=== PATIENT | male | born 1985 | race Caucasian/White ===

== ENCOUNTER 2017-05-26 13:12 | Inpatient (IN) | payer OTHER ==
[2017-05-26] VITALS (10 sets, daily range): BP systolic 96–112; BP diastolic 63–77; PULSE 61–76; TEMP 36.8; O2SAT 95–98; Ht 152.4 cm; Wt 55.4 kg
[~2017-05-26] VITALS: Ht 152.4 cm; Wt 55.4 kg
--- NOTE | 2017-05-26 13:31 | EMERGENCY ROOM VISIT NOTE ---
History Report prepared by David: Dipti Thurston Under the Supervision of: Dr. Iftikhar Jack M.D. First contact with patient: 13:20 Stated Complaint: BLEEDING History of Present Illness The patient is a 31 year old male who presents to the Emergency Room with complaints of persistent bleeding from a previous G tube site on his abdomen that began around 1120. Per the patient's mother, the patient has a history of transverse myelitis, acute. She notes that in 2012 the patient had an acute onset of hand numbness and feet numbness, noting that he then lost consciousness. The patient states that he does not have use of his arms or legs. Per the patient's home nurse, the patient has been bleeding from a fistula persistently, noting that he bled through at 2x2, and hand towel, and onto a pillow. Source of History: patient, parent (mother), other (home nurse) Onset: 1120 Position: abdomen Quality: other (bleeding from previous G tube site) Timing: other (persistent) Review of Systems See HPI for pertinent positives & negatives. A total of 10 systems reviewed and were otherwise negative. Past Medical & Surgical Medical Problems: (1) Acute transverse myelitis Family History No pertinent family history stated Social History Marital Status: single Housing Status: lives with family Occupation Status: disabled Current/Historical Medications Scheduled Baclofen (Lioresal), 10 MG PO QID Bisacodyl (Bisac-Evac), 10 MG RE DAILY Famotidine (Pepcid), 20 MG PO DAILY Gabapentin (Neurontin), 600 MG PO HS Metoclopramide (Reglan), 5 MG PO QID Montelukast Sodium (Montelukast Sodium), 1 TAB PO DAILY Multivitamin (Multivitamin), 1 TAB PO DAILY Senna (Senokot), 17.2 MG PO HS Tizanidine (Zanaflex), 2 MG PO BID Allergies Coded Allergies: No Known Allergies (Unverified , 05/26/17) Physical Exam Vital Signs Date Time Temp Pulse Resp B/P (MAP) Pulse Ox O2 Delivery O2 Flow Rate FiO2 05/26/17 15:02 75 20 114/71 98 Trach Collar 05/26/17 13:39 21 05/26/17 13:31 37.4 76 18 109/80 97 Trach Collar Physical Exam GENERAL: Patient awake, alert, oriented x 3. Patient follows commands. Patient is on a ventilator. Arms in braces, legs in braces, Jade catheter in place. SKIN: No erythema, pallor, cyanosis or rash HEENT: Normal head, pupils equal, reactive to light and accommodation, patient appears to have nystagmus. Oral cavity and posterior pharynx appear normal. Neck: Without adenopathy, no neck vein distention. LUNGS: Clear to auscultation. No wheezes, no rales, no rhonchi. HEART: No murmurs. No gallops. No rubs ABDOMEN: Small fistula in the left upper abdomen, where previous G-tube was. No masses, no rebound, no hepatomegaly or splenomegaly. EXTREMITIES: No signs of trauma. No pedal or pretibial edema. No calf or thigh tenderness. NEUROLOGIC: Cranial nerves II-XII within normal limits. No gross motor sensory function deficits. Medical Decision & Procedures Laboratory Results 05/26/17 13:40 Red Blood Count 4.43, Mean Corpuscular Volume 85.3, Mean Corpuscular Hemoglobin 29.6, Mean Corpuscular Hemoglobin Concent 34.7, Mean Platelet Volume 11.0, Neutrophils (%) (Auto) 58.3, Lymphocytes (%) (Auto) 30.1, Monocytes (%) (Auto) 8.4, Eosinophils (%) (Auto) 2.4, Basophils (%) (Auto) 0.5, Neutrophils # (Auto) 4.40, Lymphocytes # (Auto) 2.27, Monocytes # (Auto) 0.63, Eosinophils # (Auto) 0.18, Basophils # (Auto) 0.04 05/26/17 13:40 Test 05/26/17 13:40 White Blood Count 7.54 K/uL (4.8-10.8) Red Blood Count 4.43 M/uL (4.7-6.1) Hemoglobin 13.1 g/dL (14.0-18.0) Hematocrit 37.8 % (42-52) Mean Corpuscular Volume 85.3 fL (80-100) Mean Corpuscular Hemoglobin 29.6 pg (25-34) Mean Corpuscular Hemoglobin Concent 34.7 g/dl (32-36) Platelet Count 260 K/uL (130-400) Mean Platelet Volume 11.0 fL (7.4-10.4) Neutrophils (%) (Auto) 58.3 % Lymphocytes (%) (Auto) 30.1 % Monocytes (%) (Auto) 8.4 % Eosinophils (%) (Auto) 2.4 % Basophils (%) (Auto) 0.5 % Neutrophils # (Auto) 4.40 K/uL (1.4-6.5) Lymphocytes # (Auto) 2.27 K/uL (1.2-3.4) Monocytes # (Auto) 0.63 K/uL (0.11-0.59) Eosinophils # (Auto) 0.18 K/uL (0-0.5) Basophils # (Auto) 0.04 K/uL (0-0.2) RDW Standard Deviation 46.0 fL (36.4-46.3) RDW Coefficient of Variation 14.6 % (11.5-14.5) Immature Granulocyte % (Auto) 0.3 % Immature Granulocyte # (Auto) 0.02 K/uL (0.00-0.02) Anion Gap 9.0 mmol/L (3-11) Est Creatinine Clear Calc Drug Dose 78.2 ml/min Estimated GFR () 121.4 Estimated GFR (Non- 104.8 BUN/Creatinine Ratio 17.6 (10-20) Calcium Level 10.1 mg/dl (8.5-10.1) Laboratory results as stated above per my review. ED Course 1321: Past medical records reviewed. The patient was evaluated in room B5. A complete history and physical examination was performed. 1342: I discussed the patients case with a OSCAR from General Surgery. She states that she is going to get a hold of Dr. eCja 1500: The patient was signed out to Dr. Glasgow at change of shift. Medical Decision Nurses notes reviewed. Medical history sheet reviewed. Differential diagnosis includes but is not limited to: Bleeding from previous g tube site, anemia. Multiple labs were evaluated. Please see above. The patient is here with bleeding from an old G tube site. He may have an underlying peptic or gastric ulcer or bleeding from gastritis or neoplasm. H/H remains stable. The patient will require further evaluation in the hospital. GI will be consulted in addition to surgery. I spoke with surgery, medicine, the patient, mom and the patient's caregiver. Medication Reconcilliation Current Medication List: was personally reviewed by me Blood Pressure Screening Patient's blood pressure: Normal blood pressure Blood pressure disposition: Did not require urgent referral Consults Time Called: 1340 Consulting Physician: OSCAR from General Surgery Returned Call: 1342 I discussed the patients case with a OSCAR from General Surgery. She states that she is going to get a hold of Dr. Ceja. Additional Consults: Time Called: 15:00 Consulted Physician: Dr. Ceja Returned Call: 15:15 Additional Comments: Suggested that I get the patient admitted to medicine and have them consult GI for endoscopy. He will see the patient in the hospital. Time Called: 15:17 Consulted Physician: Dr. Aviles Returned Call: 15:17 Additional Comments: Will furhter evaluate for admission. Will consult GI and surgery. Impression Primary Impression: Bleeding from gastrostomy tube site Scribe Attestation The scribe's documentation has been prepared under my direction and personally reviewed by me in its entirety. I confirm that the note above accurately reflects all work, treatment, procedures, and medical decision making performed by me. Departure Information Dispostion Still a Patient Referrals Abigail Hernández (PCP)
[2017-05-26] MEDS ORDERED: BACL10TA PO (14:01)
[2017-05-26] MEDS ORDERED: MONT1TAB5 PO (14:01)
[2017-05-26] MEDS ORDERED: BISA10SU7 RE (14:01)
[2017-05-26] MEDS ORDERED: GABA-113 PO (14:01)
[2017-05-26] MEDS ORDERED: FAMO20TA11 PO (14:01)
[2017-05-26] MEDS ORDERED: MULT-506 PO (14:01)
[2017-05-26] MEDS ORDERED: METO-157 PO (14:01)
[2017-05-26] MEDS ORDERED: TIZA2CAP PO (14:01)
[2017-05-26] MEDS ORDERED: SENN-61 PO (14:01)
[2017-05-26 14:12] LABS: BASO % 0.5 %; BASO ABS # 0.04 K/uL (0-0.2); COMPLETE YES; EOS % 2.4 %; HEMATOCRIT 37.8 % (42-52); IG% 0.3 %; LYMPH % 30.1 %; LYMPH ABS # 2.27 K/uL (1.2-3.4); MEAN CELL VOLUME 85.3 fL (80-100); MEAN CORPUSCULAR HEMOGLOBIN 29.6 pg (25-34); MEAN CORPUSCULAR HGB CONC 34.7 g/dl (32-36); MONO % 8.4 %; NEUT % 58.3 %; PLATELET COUNT 260 K/uL (130-400); RED BLOOD COUNT 4.43 M/uL (4.7-6.1); WHITE BLOOD COUNT 7.54 K/uL (4.8-10.8)
[2017-05-26 14:29] LABS: BUN/CREATININE RATIO 17.6 (10-20); CALCIUM 10.1 mg/dl (8.5-10.1); CREATININE 0.95 mg/dl (0.60-1.40); POTASSIUM 3.6 mmol/L (3.5-5.1)
[2017-05-26] MEDS ORDERED: MAGNESIUM HYDROXIDE SUSP 30 ML UDC PO PRN (16:30)
[2017-05-26] MEDS ORDERED: ACETAMINOPHEN 325 MG TAB PO PRN (16:30)
[2017-05-26] MEDS ORDERED: POLYETHYLENE (MIRALAX) 17 GM PACK PO PRN (16:30)
[2017-05-26] MEDS ORDERED: ONDANSETRON INJ 2 MG/ML 2 ML VIAL IV PRN (16:30)
[2017-05-26] MEDS ORDERED: GABA1CAP4 PO (16:34)
--- NOTE | 2017-05-26 16:58 | History and Physical ---
History & Physical Date & Time of Service: May 26, 2017 at 15:59 Chief Complaint: Bleeding Primary Care Physician: Abigail Hernández History of Present Illness Source: patient This is 31 yo M with PMHs of quadraplegia, neurogenic bladder with chronic indwelling ovalles, legally blind, nonhealing gastrocutaneous fistula d/t gastic tube, transverse myelitis, and polyneuritis who presents with bleeding surrounding previous gastric tube insertion site. The patient is present with his mother and home nurse. The patient initially had a G-tube placed for acute transverse myelitis in Jun [address] [facility], he was admitted under their care for about 1 month at that time, prior to the procedure. He also had a tracheostomy placed in Jun 2013. Approximately 1 year later he was supposed to have the Gtube out, and replaced by a zuhair tube. This tube then accidentally fell out approximately 1 month after the exchange at home, and it was never replaced. The wound there has never completely healed over. There have been many times where the insertion site has stretched, but he was told this was due to his oral intake. The patient eats three meals daily without difficulty and denies abdominal complaints. His bowels move regularly. His chronic indwelling catheter was last changed on April 08 2017, and he typically hates to have it changed. Here in the ED the pt was found to have stable vital signs, stable hemoglobin, no leukocytosis. 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 Tracheostomy Surgical Hx Previous gtube placement and removal Tracheostomy nasal septoplasty Family History Noncontributory Social History Smoking Status: Never Smoker Smokeless Tobacco Use: No Alcohol Use: none Drug Use: none Marital Status: single Housing status: lives with family Occupational Status: disabled Immunizations History of Influenza Vaccine: Unknown History of Tetanus Vaccine?: Unknown History of Pneumococcal: Unknown History of Hepatitis B Vaccine: Unknown Multi-Drug Resistant Organisms History of MDRO: No Allergies Coded Allergies: No Known Allergies (Unverified , 05/26/17) Home Medications Scheduled Baclofen (Lioresal), 10 MG PO QID Bisacodyl (Bisac-Evac), 10 MG RE DAILY Famotidine (Pepcid), 20 MG PO DAILY Gabapentin (Neurontin), 600 MG PO HS Gabapentin (Gabapentin), 1 CAP PO QDL Metoclopramide (Reglan), 5 MG PO QID Montelukast Sodium (Montelukast Sodium), 1 TAB PO HS Multivitamin (Multivitamin), 1 TAB PO DAILY Senna (Senokot), 17.2 MG PO HS Tizanidine (Zanaflex), 2 MG PO BID Review of Systems Constitutional: No fever, No chills, No sweats Eyes: + problem reported (legally blind, wears hard contact in R eye only) ENT: No hearing loss, No nasal symptoms, No trouble swallowing Respiratory: No cough, No sputum, No wheezing, No shortness of breath, No dyspnea on exertion, No problem reported (trache dependent) Cardiovascular: No chest pain, No palpitations Abdomen: + problem reported (see HPI) Musculoskeletal: + problem reported (muscle spasms) Genitourinary - Male: + problem reported (Chronic indwelling ovalles), No hematuria Neurologic: + problem reported (Quadraplegia) Endocrine: No fatigue Integumentary: No rash, No itch Physical Exam Vital Signs Date Time Temp Pulse Resp B/P (MAP) Pulse Ox O2 Delivery O2 Flow Rate FiO2 05/26/17 15:02 75 20 114/71 98 Trach Collar 05/26/17 13:39 21 05/26/17 13:31 37.4 76 18 109/80 97 Trach Collar General Appearance: + pertinent finding (Quadraplegia, + contractures of bilateral upper extremities, muscle wasting) Head: normocephalic, atraumatic Eyes: PERRL, + pertinent finding (+ cataracts, + nystagmus, + difficulty tracting movements) ENT: hearing grossly normal, pharynx normal, + pertinent finding (MMM) Neck: supple, + pertinent finding (Tacheostomy intact) Respiratory/Chest: lungs clear, no respiratory distress, no accessory muscle use Cardiovascular: regular rate, rhythm, no murmur, normal peripheral pulses Abdomen/GI: normal bowel sounds, non tender, soft, + pertinent finding (RUQ abdominal wound with dried blood surrounding it. Pinpoint sized hole open to underlying tissue, draining serosanginous fluid) Extremities/Musculoskelatal: no calf tenderness, no pedal edema, + pertinent finding (Leg spasm witnessed, involves BLE with tremors.) Neurologic/Psych: alert, normal mood/affect, oriented x 3 Skin: normal color, warm/dry Diagnostics Laboratory Results Results Past 24 Hours Test 05/26/17 13:40 Range/Units White Blood Count 7.54 4.8-10.8 K/uL Red Blood Count 4.43 4.7-6.1 M/uL Hemoglobin 13.1 14.0-18.0 g/dL Hematocrit 37.8 42-52 % Mean Corpuscular Volume 85.3 80-100 fL Mean Corpuscular Hemoglobin 29.6 25-34 pg Mean Corpuscular Hemoglobin Concent 34.7 32-36 g/dl Platelet Count 260 130-400 K/uL Mean Platelet Volume 11.0 7.4-10.4 fL Neutrophils (%) (Auto) 58.3 % Lymphocytes (%) (Auto) 30.1 % Monocytes (%) (Auto) 8.4 % Eosinophils (%) (Auto) 2.4 % Basophils (%) (Auto) 0.5 % Neutrophils # (Auto) 4.40 1.4-6.5 K/uL Lymphocytes # (Auto) 2.27 1.2-3.4 K/uL Monocytes # (Auto) 0.63 0.11-0.59 K/uL Eosinophils # (Auto) 0.18 0-0.5 K/uL Basophils # (Auto) 0.04 0-0.2 K/uL RDW Standard Deviation 46.0 36.4-46.3 fL RDW Coefficient of Variation 14.6 11.5-14.5 % Immature Granulocyte % (Auto) 0.3 % Immature Granulocyte # (Auto) 0.02 0.00-0.02 K/uL Sodium Level 139 136-145 mmol/L Potassium Level 3.6 3.5-5.1 mmol/L Chloride Level 111 98-107 mmol/L Carbon Dioxide Level 19 21-32 mmol/L Anion Gap 9.0 3-11 mmol/L Blood Urea Nitrogen 17 7-18 mg/dl Creatinine 0.95 0.60-1.40 mg/dl Est Creatinine Clear Calc Drug Dose 78.2 ml/min Estimated GFR () 121.4 Estimated GFR (Non- 104.8 BUN/Creatinine Ratio 17.6 10-20 Random Glucose 87 70-99 mg/dl Calcium Level 10.1 8.5-10.1 mg/dl EKG Vent. rate 69 BPM OK interval 114 ms QRS duration 88 ms QT/QTc 392/420 ms P-R-T axes -11 49 10 Poor data quality, interpretation may be adversely affected Normal sinus rhythm T wave abnormality, consider anterolateral ischemia Abnormal ECG No previous ECGs available Impression Assessment and Plan This is 31 yo M with PMHs of quadraplegia, neurogenic bladder with chronic indwelling ovalles, legally blind, nonhealing gastrocutaneous fistula d/t gastic tube, transverse myelitis, and polyneuritis who presents with bleeding surrounding previous gastric tube insertion site. Acute transverse myelitis - Admit to med/surg - Consult general surgery for questionable tracting/fistula and needs for surgical intervention - I have kept the pt NPO except meds for now. Pt had previously seen Dr. Ceja, and had scheduled outpatient surgery 06/09/17. - Consult GI for possible upper endoscopy - previously followed with [facility] so consulted Dr. Solomon - Hgb currently stable, trend with am labs Quadriplegia - Continue on home medications including baclofen 10 mg QID, gabapentin 300 mg at noon and 600 mg QHS - Low air loss mattress ordered - Turn and repo Q2H Tracheostomy dependent - Continue trach care per nursing - Will ask wound to see the patient Neurogenic Bladder - Has chronic indwelling ovalles placed, last changed April 08, 2017 - if pt undergoes procedure with sedation the ovalles catheter needs to be changed then. Pt does not like ovalles changed while awake due to severe discomfort. Anxiety Panic attacks - Occur with change of tracheostomy - uses ativan 0.5 mg 30 minutes prior to change DVT ppx: Teds, heparin subQ - can certainly hold if surgical intervention CODE STATUS: FULL CODE, mother is POA Disposition: From home, has 24/ nursing care in home. PA Physician Supervision Note: I interviewed and examined the patient. Discussed with Martha ESPINOZA and agree with findings and plan as documented in the note. Any exceptions or clarifications are listed here: None This patient was admitted with bleeding from his previous G-tube site not acute transverse myelitis. This morning the patient's in his usual state he's on a chronic home ventilator for his quadriplegia. His mother is at the bedside. Vital signs were stable next I inspected this site with when my PA is crusted with no acute bleeding. Patient is proceeding to upper endoscopy to evaluate the stomach for a fistulous tract to the skin. If he stable after this procedure he potentially could return home with outpatient surgical follow-up Documented By: Son Judge Level of Care Med/Surg Advanced Directives Existing Advance Directive: Yes Existing Living Will: Yes Existing Power of Lab Engineer: Yes Existing Health Care Proxy: Yes Resuscitation Status FULL RESUSCITATION VTE Prophylaxis Risk Level: Low Given or contraindicated: Unfractionated heparin SQ, T.EMaurisio Garcia, SCD's Social Service Consult Receiving Home Health
[2017-05-26] MEDS: GABAPENTIN 300 MG CAP PO SCH (17:26)
[2017-05-26] MEDS: METOCLOPRAMIDE HCL 5 MG TAB PO SCH ×2 (17:26→21:18)
[2017-05-26] MEDS: BACLOFEN 10 MG TAB PO SCH ×2 (17:26→21:19)
[2017-05-26 17:57] LABS: PARTIAL THROMBOPLASTIN RATIO 1.3; PROTHROMBIN TIME (PATIENT) 10.7 SECONDS (9.0-12.0)
[2017-05-26] MEDS ORDERED: MONTELUKAST SOD 10 MG TAB PO SCH (21:00)
[2017-05-26] MEDS ORDERED: GABAPENTIN 600 MG TAB PO SCH (21:00)
[2017-05-26] MEDS ORDERED: SENNA 8.6 MG TAB PO SCH (21:00)
[2017-05-26] MEDS ORDERED: BISACODYL 10 MG SUPP PR SCH (21:00)
[2017-05-26] MEDS: HEPARIN SOD 5000 UNIT/0.5 ML CARP SQ SCH (21:20)
[2017-05-27] VITALS (17 sets, daily range): BP systolic 86–117; BP diastolic 54–82; PULSE 60–94; TEMP 36.4–37.3; O2SAT 88–99
[2017-05-27] MEDS ORDERED: NURSING VERBAL MED ORDER ONE (07:45)
[2017-05-27 08:08] LABS: HEMATOCRIT 40.1 % (42-52); MEAN CELL VOLUME 85.7 fL (80-100); MEAN CORPUSCULAR HEMOGLOBIN 29.7 pg (25-34); MEAN PLATELET VOLUME 10.7 fL (7.4-10.4); PLATELET COUNT 260 K/uL (130-400); RED BLOOD COUNT 4.68 M/uL (4.7-6.1); WHITE BLOOD COUNT 6.37 K/uL (4.8-10.8)
[2017-05-27 08:13] LABS: MEAN CORPUSCULAR HGB CONC 34.7 g/dl (32-36)
--- NOTE | 2017-05-27 08:15 | Surgery Consultation ---
Consultation Date of Consultation: May 27, 2017. Attending Physician: Son Judge M.D. History of Present Illness pt known to me/schedule for sugery to staple off his gastrocutaneous fistula in 2 weeks. 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 he has a non-healing fistula and for the first time ever had some red blood from the fistula. no other complaints. feeling well otherwise. Past Medical/Surgical History Medical Problems: (1) Bleeding from gastrostomy tube site Status: Acute Social History Smoking Status: Never Smoker Smokeless Tobacco Use: No Alcohol Use: none Drug Use: none Marital Status: single Housing Status: lives with family Occupation Status: disabled Allergies Coded Allergies: No Known Allergies (Unverified , 05/26/17) Home Medications Scheduled Baclofen (Lioresal), 10 MG PO QID Bisacodyl (Bisac-Evac), 10 MG RE DAILY Famotidine (Pepcid), 20 MG PO DAILY Gabapentin (Neurontin), 600 MG PO HS Gabapentin (Gabapentin), 1 CAP PO QDL Metoclopramide (Reglan), 5 MG PO QID Montelukast Sodium (Montelukast Sodium), 1 TAB PO HS Multivitamin (Multivitamin), 1 TAB PO DAILY Senna (Senokot), 17.2 MG PO HS Tizanidine (Zanaflex), 2 MG PO BID Current Inpatient Medications Current Inpatient Medications Medications (Trade) Dose Ordered Sig/Jameson Route Start Time Stop Time Status Last Admin Dose Admin Acetaminophen (Tylenol Tab) 650 mg Q4H PRN PO 05/26/17 16:30 06/25/17 16:29 Magnesium Hydroxide (Milk Of Magnesia Susp) 30 ml Q6H PRN PO 05/26/17 16:30 06/25/17 16:29 Polyethylene (Miralax Powder Packet) 17 gm DAILY PRN PO 05/26/17 16:30 06/25/17 16:29 Ondansetron HCl (Zofran Inj) 4 mg Q6H PRN IV 05/26/17 16:30 06/25/17 16:29 Heparin Sodium (Porcine) (Heparin Sq 5000 Unit/0.5ml) 5,000 unit Q12H SQ 05/26/17 21:00 06/25/17 20:59 05/26/17 21:20 5,000 UNIT Baclofen (Lioresal Tab) 10 mg QID PO 05/26/17 17:00 06/25/17 16:59 05/26/17 21:19 10 MG Bisacodyl (Dulcolax Supp) 10 mg HS ND 05/26/17 21:00 06/25/17 20:59 05/26/17 21:19 10 MG Famotidine (Pepcid Tab) 20 mg DAILY PO 05/27/17 09:00 06/26/17 08:59 Gabapentin (Neurontin Cap) 300 mg QDL PO 05/26/17 16:30 06/25/17 16:29 05/26/17 17:26 300 MG Gabapentin (Neurontin Tab) 600 mg HS PO 05/26/17 21:00 06/25/17 20:59 05/26/17 21:19 600 MG Metoclopramide HCl (Reglan Tab) 5 mg QID PO 05/26/17 17:00 06/25/17 16:59 05/26/17 21:18 5 MG Montelukast Sodium (Singulair Tab) 10 mg HS PO 05/26/17 21:00 06/25/17 20:59 05/26/17 21:18 10 MG Multivitamins (Multivitamin Tab) 1 tab DAILY PO 05/27/17 09:00 06/26/17 08:59 Senna (Senokot Tab) 17.2 mg HS PO 05/26/17 21:00 06/25/17 20:59 05/26/17 21:18 17.2 MG Tizanidine HCl (Zanaflex Tab) 2 mg BID PO 05/26/17 21:00 06/25/17 20:59 05/26/17 21:19 2 MG Sodium Chloride 1,000 ml @ 125 mls/hr Q8H IV 05/27/17 07:45 06/26/17 07:44 Review of Systems Abdomen: + GI bleeding Physical Exam Date Time Temp Pulse Resp B/P (MAP) Pulse Ox O2 Delivery O2 Flow Rate FiO2 05/27/17 07:32 21 05/27/17 04:31 66 18 93/54 (67) 97 Mechanical Ventilator 05/27/17 04:07 73 18 105/73 (84) 95 Mechanical Ventilator 05/27/17 04:01 36.4 79 18 105/73 (84) 96 Mechanical Ventilator 05/27/17 04:00 96 Mechanical Ventilator 05/27/17 03:31 72 17 99/64 (76) 94 Mechanical Ventilator 05/27/17 03:01 69 16 102/72 (82) 97 Mechanical Ventilator 05/27/17 02:31 69 16 117/78 (91) 98 Mechanical Ventilator 05/27/17 02:01 60 16 88/63 (71) 95 Mechanical Ventilator 05/27/17 01:31 60 16 89/61 (70) 97 Mechanical Ventilator 05/27/17 01:01 61 16 86/61 (69) 97 Mechanical Ventilator 05/27/17 00:31 60 16 95/60 (72) 97 Mechanical Ventilator 05/27/17 00:02 69 16 92/62 (72) 95 Mechanical Ventilator 05/27/17 00:01 36.7 63 21 87/60 (69) 88 Mechanical Ventilator 05/27/17 00:01 96 Mechanical Ventilator 05/26/17 23:31 61 21 96/63 (74) 97 Mechanical Ventilator 05/26/17 23:01 70 16 102/75 (84) 97 Mechanical Ventilator 05/26/17 22:31 67 16 103/73 (83) 98 Mechanical Ventilator 05/26/17 22:07 21 05/26/17 22:01 69 22 112/77 (89) 97 Mechanical Ventilator 05/26/17 21:31 75 24 103/70 (81) 97 Mechanical Ventilator 05/26/17 21:01 76 24 112/76 (88) 96 Mechanical Ventilator 05/26/17 21:00 96 Mechanical Ventilator 05/26/17 20:49 36.8 74 19 106/70 (82) 96 Mechanical Ventilator 05/26/17 18:56 36.8 76 18 103/68 (80) 95 Room Air 05/26/17 17:42 75 16 103/69 96 05/26/17 17:20 97 Mechanical Ventilator 8.0 05/26/17 17:08 75 16 103/69 96 Trach Collar 05/26/17 15:02 75 20 114/71 98 Trach Collar 05/26/17 13:39 21 05/26/17 13:31 37.4 76 18 109/80 97 Trach Collar General Appearance: no apparent distress Eyes: + abnormal sclerae exam ENT: hearing grossly normal Abdomen/GI: non tender, soft, + pertinent finding (no blood currently from fistula tract) Neurologic/Psych: alert, oriented x 3 Laboratory Results Last 24 Hours Test 05/26/17 13:40 05/27/17 07:43 White Blood Count 7.54 K/uL 6.37 K/uL Red Blood Count 4.43 M/uL 4.68 M/uL Hemoglobin 13.1 g/dL 13.9 g/dL Hematocrit 37.8 % 40.1 % Mean Corpuscular Volume 85.3 fL 85.7 fL Mean Corpuscular Hemoglobin 29.6 pg 29.7 pg Mean Corpuscular Hemoglobin Concent 34.7 g/dl Platelet Count 260 K/uL 260 K/uL Mean Platelet Volume 11.0 fL 10.7 fL Neutrophils (%) (Auto) 58.3 % Lymphocytes (%) (Auto) 30.1 % Monocytes (%) (Auto) 8.4 % Eosinophils (%) (Auto) 2.4 % Basophils (%) (Auto) 0.5 % Neutrophils # (Auto) 4.40 K/uL Lymphocytes # (Auto) 2.27 K/uL Monocytes # (Auto) 0.63 K/uL Eosinophils # (Auto) 0.18 K/uL Basophils # (Auto) 0.04 K/uL RDW Standard Deviation 46.0 fL 45.5 fL RDW Coefficient of Variation 14.6 % 14.6 % Immature Granulocyte % (Auto) 0.3 % Immature Granulocyte # (Auto) 0.02 K/uL Prothrombin Time 10.7 SECONDS Prothromb Time International Ratio 1.0 Activated Partial Thromboplast Time 33.2 SECONDS Partial Thromboplastin Ratio 1.3 Sodium Level 139 mmol/L Potassium Level 3.6 mmol/L Chloride Level 111 mmol/L Carbon Dioxide Level 19 mmol/L Anion Gap 9.0 mmol/L Blood Urea Nitrogen 17 mg/dl Creatinine 0.95 mg/dl Est Creatinine Clear Calc Drug Dose 78.2 ml/min Estimated GFR () 121.4 Estimated GFR (Non- 104.8 BUN/Creatinine Ratio 17.6 Random Glucose 87 mg/dl Calcium Level 10.1 mg/dl Assessment & Plan pt known to me scheduled for takedown of gastrocutaneous fistula egd prior to surgery would be a good idea to evaluate source of bleeding no bleeding overnight. H/H this AM pending pt NPO . will start IVF's. still planning surgery pending results of EGD Dr. Mckeon covering for weekend.
--- NOTE | 2017-05-27 08:18 | Clinical Documentation Query ---
JUAN C Edward : CLINICAL DOCUMENTATION QUERY Documentation includes "acute transverse myelitis". Per documentation, it appears the acute phase of the disease occurred in June 2013, as evidenced by gastrostomy and tracheostomy at this time. Subsequent to this, patient intake is by the oral route. Resultant quadriplegia, urinary retention, blindness remain. Please clarify the acuity of this condition as clinically appropriate. In your clinical opinion is this patient being managed for: ( ) Acute transverse myelitis ( ) Sequelae of transverse myelitis, not acute ( ) Not Agree ( ) Other explanation of clinical findings (Please Explain) ( ) Unable to determine (Please Define) ( ) Need to Discuss The medical record reflects the following clinical findings, treatment, and risk factors. Please clarify and document your clinical opinion in the progress notes and discharge summary. Terms such as "probable", "suspected", "likely", "questionable", "possible", or "still to be ruled out" are acceptable. IF IN AGREEMENT, YOU MUST DOCUMENT ABOVE DIAGNOSTIC STATEMENT IN DAILY PROGRESS NOTES AND DISCHARGE SUMMARY. This document is not part of the patient's record. Thank You, Darius Etienne, ILENE [phone]
[2017-05-27] MEDS: BACLOFEN 10 MG TAB PO SCH ×3 (08:28→16:09)
[2017-05-27] MEDS: SODIUM CHLORIDE 0.9% 1000ML 1,000 ML IV SCH ×2 (08:28→16:08)
[2017-05-27] MEDS: METOCLOPRAMIDE HCL 5 MG TAB PO SCH ×3 (08:30→16:09)
[2017-05-27] MEDS: HEPARIN SOD 5000 UNIT/0.5 ML CARP SQ SCH (08:36)
[2017-05-27] MEDS ORDERED: MULTIVITAMIN TAB PO SCH (09:00)
[2017-05-27] MEDS ORDERED: FAMOTIDINE 20 MG TAB PO SCH (09:00)
--- NOTE | 2017-05-27 11:02 | GASTROINTESTINAL CONSULTATION ---
DATE OF CONSULTATION: 05/27/2017 DATE OF CONSULTATION: 05/27/2017 REQUESTING PHYSICIAN: Dr. Son Judge. INDICATIONS: Gastrointestinal bleeding through gastrocutaneous fistula. HISTORY OF PRESENT ILLNESS: Mr. Acevedo is a 31-year-old white male who presented yesterday for bleeding through established and known gastrocutaneous fistula at the site of prior peg/surgically placed gastrostomy tube. The patient has a history of quadriplegia, neurogenic bladder with chronic indwelling Jade and is blind and underwent a G-tube placement initially endoscopically and subsequently on replacement by surgical approach in 2012 at the time of diagnosis of acute transverse myelitis. This was at [facility]. The patient has a tracheostomy since June 2013. The patient had a subsequent replacement by a MARIO-PINON tube that would facilitate subsequent changes. Actually, the patient is able to tolerate oral intake and has been eating since 2013 according to the patient and his mother. He actually had been seen by Dr. Ceja recently for which plans in mid-May to close this fistula tract were made. However, yesterday the patient noted bleeding coming from the tract that soaked through several gauze pads and hand towel. The patient denies any melena or bright red blood per rectum and did not have coffee-ground emesis, hematemesis or any sensation of nausea. The patient presented to the Emergency Room due to this presentation. PAST MEDICAL HISTORY: Acute transverse myelitis, neurogenic bladder, visual impairment, gastrocutaneous fistula, polyneuritis, history of tracheostomy. The patient had an addition surgical history of nasal septoplasty. SOCIAL HISTORY: The patient denies tobacco or alcohol usage, is single, lives with his family. ALLERGIES: He has no known drug allergies. HOME MEDICATIONS: Include Baclofen, Dulcolax, famotidine 20 mg daily, gabapentin, metoclopramide, Singulair, multivitamins, senna and Zanaflex. FAMILY HISTORY: Noncontributory. SOCIAL HISTORY: As described above. REVIEW OF SYSTEMS: Otherwise noncontributory based on 13-point exam except for mentioned above. There is no reports of bright red blood per rectum, melena, diarrhea or constipation and is managed with bowel regimen because of his quadriplegia. PHYSICAL EXAMINATION: VITAL SIGNS: On admission, the patient was afebrile. Vital signs were stable, 109/80, heart rate 76, respirations 18. GENERAL: The patient is resting comfortably in bed, has a tracheostomy in and on ventilatory support. The patient in the ICU setting for telemetry purposes. The patient is verbal, awake, alert and oriented x3. HEAD, EYES, EARS, NOSE, AND THROAT: Sclerae are anicteric, conjunctiva moist. Oral mucosa is slightly parched. HEART: Normal S1, S2. LUNGS: Clear to auscultation without rales, rhonchi or wheezes. There are positive bowel sounds. EXTREMITIES: Show some contractures. The patient is unable to perform range of motion. Inspection of the abdominal wall in the left mid abdomen shows the prior PEG tube site for which is currently nonbleeding without significant ulceration or maceration. There is no blood currently emanating from the fistula track or orifice. RECTAL EXAMINATION: Deferred. LABORATORY STUDIES: Today and on admission reveal a stable white count of 7.5, hemoglobin 13.1 and repeat 13.9 today, platelets are 260,000. Serum chemistry, BUN and creatinine are 17 and 0.9. Potassium 3.6. Coagulation panel INR 1.0. There are no imaging. 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 The patient is able to fully tolerate nutrition support orally. Plans to close this surgically are in progress as an outpatient for 06/09/2017. I suspect that the bleeding is coming from the tract itself and emanating to the surface and does not likely reflect a gastrointestinal bleed as there is no descriptions of hematemesis, coffee-ground emesis or melena. Hemoglobin also stable and BUN and creatinine ratio are normal. I believe it is reasonable to pursue an upper endoscopy to exclude any other mucosal defects in the stomach prior to anticipated laparoscopic closure and repair of this tract. Although endoscopic approaches have have been attempted the chronicity of this track may limit durable response by endo clipping or other techniques. Will arrange for upper endoscopy this afternoon, patient is n.p.o. and this should be continued until the procedure is performed. Dr. Harry will be performing this procedure later this afternoon. Thank you for allowing me to participate in this patient's care.
--- NOTE | 2017-05-27 11:31 | Hospitalist Progress Note ---
Hospitalist Progress Note Date of Service May 27, 2017. Subjective Pt evaluation today including: conversation w/ patient, conversation w/ family , physical exam, chart review, lab review, review of studies Pain: None PO Intake: Good Voiding: ovalles catheter in place The patient was seen and examined this morning. Pt reports doing well today. He slept overnight well. There has been no more drainage for g-tube site, no bleeding, no pain surrounding the area. He is NPO. Gastroenterology plans to do an EGD on the patient today to assess for potential source of bleeding. No surgical intervention required immediately as Dr. Ceja was in to see him, and plans to keep outpatient surgery as scheduled. The patient has no other acute complaints. Constitutional: No fever, No chills, No sweats Respiratory: No cough, No shortness of breath, No dyspnea on exertion Cardiovascular: No chest pain, No palpitations Abdomen: No pain, No nausea, No vomiting, No diarrhea, No constipation Musculoskeletal: No joint pain, No swelling Neurologic: No weakness, No numbness/tingling Endo: No fatigue Skin: No rash, No itch Objective Vital Signs Date Time Temp Pulse Resp B/P (MAP) Pulse Ox O2 Delivery O2 Flow Rate FiO2 05/27/17 10:00 36.6 75 16 88/55 (66) 94 Mechanical Ventilator 05/27/17 08:00 36.6 69 16 100/71 (81) 96 Mechanical Ventilator 05/27/17 08:00 Room Air Mechanical Ventilator 05/27/17 07:32 21 05/27/17 04:31 66 18 93/54 (67) 97 Mechanical Ventilator 05/27/17 04:07 73 18 105/73 (84) 95 Mechanical Ventilator 05/27/17 04:01 36.4 79 18 105/73 (84) 96 Mechanical Ventilator 05/27/17 04:00 96 Mechanical Ventilator 05/27/17 03:31 72 17 99/64 (76) 94 Mechanical Ventilator 05/27/17 03:01 69 16 102/72 (82) 97 Mechanical Ventilator 05/27/17 02:31 69 16 117/78 (91) 98 Mechanical Ventilator 05/27/17 02:01 60 16 88/63 (71) 95 Mechanical Ventilator 05/27/17 01:31 60 16 89/61 (70) 97 Mechanical Ventilator 05/27/17 01:01 61 16 86/61 (69) 97 Mechanical Ventilator 05/27/17 00:31 60 16 95/60 (72) 97 Mechanical Ventilator 05/27/17 00:02 69 16 92/62 (72) 95 Mechanical Ventilator 05/27/17 00:01 36.7 63 21 87/60 (69) 88 Mechanical Ventilator 05/27/17 00:01 96 Mechanical Ventilator 05/26/17 23:31 61 21 96/63 (74) 97 Mechanical Ventilator 05/26/17 23:01 70 16 102/75 (84) 97 Mechanical Ventilator 05/26/17 22:31 67 16 103/73 (83) 98 Mechanical Ventilator 05/26/17 22:07 21 05/26/17 22:01 69 22 112/77 (89) 97 Mechanical Ventilator 05/26/17 21:31 75 24 103/70 (81) 97 Mechanical Ventilator 05/26/17 21:01 76 24 112/76 (88) 96 Mechanical Ventilator 05/26/17 21:00 96 Mechanical Ventilator 05/26/17 20:49 36.8 74 19 106/70 (82) 96 Mechanical Ventilator 05/26/17 18:56 36.8 76 18 103/68 (80) 95 Room Air 05/26/17 17:42 75 16 103/69 96 05/26/17 17:20 97 Mechanical Ventilator 8.0 05/26/17 17:08 75 16 103/69 96 Trach Collar 05/26/17 15:02 75 20 114/71 98 Trach Collar 05/26/17 13:39 21 05/26/17 13:31 37.4 76 18 109/80 97 Trach Collar Physical Exam Notes: General Appearance: + pertinent finding (Quadraplegia, + contractures of bilateral upper extremities, muscle wasting) Head: normocephalic, atraumatic Eyes: PERRL, + pertinent finding (+ cataracts, + nystagmus, + difficulty tracting movements) ENT: hearing grossly normal, pharynx normal, + pertinent finding (MMM) Neck: supple, + pertinent finding (Tacheostomy intact) Respiratory/Chest: lungs clear, no respiratory distress, no accessory muscle use Cardiovascular: regular rate, rhythm, no murmur, normal peripheral pulses Abdomen/GI: normal bowel sounds, non tender, soft, + pertinent finding (RUQ abdominal wound with dried blood surrounding it. Pinpoint sized hole open to underlying tissue, minimal dried drainage on bandage but no drainage from wound currently) Extremities/Musculoskelatal: no calf tenderness, no pedal edema Neurologic/Psych: alert, normal mood/affect, oriented x 3 Skin: normal color, warm/dry Laboratory Results Last 24 Hours Test 05/26/17 13:40 05/27/17 07:43 White Blood Count 7.54 K/uL 6.37 K/uL Red Blood Count 4.43 M/uL 4.68 M/uL Hemoglobin 13.1 g/dL 13.9 g/dL Hematocrit 37.8 % 40.1 % Mean Corpuscular Volume 85.3 fL 85.7 fL Mean Corpuscular Hemoglobin 29.6 pg 29.7 pg Mean Corpuscular Hemoglobin Concent 34.7 g/dl 34.7 g/dl Platelet Count 260 K/uL 260 K/uL Mean Platelet Volume 11.0 fL 10.7 fL Neutrophils (%) (Auto) 58.3 % Lymphocytes (%) (Auto) 30.1 % Monocytes (%) (Auto) 8.4 % Eosinophils (%) (Auto) 2.4 % Basophils (%) (Auto) 0.5 % Neutrophils # (Auto) 4.40 K/uL Lymphocytes # (Auto) 2.27 K/uL Monocytes # (Auto) 0.63 K/uL Eosinophils # (Auto) 0.18 K/uL Basophils # (Auto) 0.04 K/uL RDW Standard Deviation 46.0 fL 45.5 fL RDW Coefficient of Variation 14.6 % 14.6 % Immature Granulocyte % (Auto) 0.3 % Immature Granulocyte # (Auto) 0.02 K/uL Prothrombin Time 10.7 SECONDS Prothromb Time International Ratio 1.0 Activated Partial Thromboplast Time 33.2 SECONDS Partial Thromboplastin Ratio 1.3 Sodium Level 139 mmol/L Potassium Level 3.6 mmol/L Chloride Level 111 mmol/L Carbon Dioxide Level 19 mmol/L Anion Gap 9.0 mmol/L Blood Urea Nitrogen 17 mg/dl Creatinine 0.95 mg/dl Est Creatinine Clear Calc Drug Dose 78.2 ml/min Estimated GFR () 121.4 Estimated GFR (Non- 104.8 BUN/Creatinine Ratio 17.6 Random Glucose 87 mg/dl Calcium Level 10.1 mg/dl Assessment and Plan This is 31 yo M with PMHs of quadraplegia, neurogenic bladder with chronic indwelling ovalles, legally blind, nonhealing gastrocutaneous fistula d/t gastic tube, transverse myelitis, and polyneuritis who presents with bleeding surrounding previous gastric tube insertion site. Transverse myelitis hx Nonhealing gtube site - In ICU for tele overflow and tracheostomy dependence - Consult general surgery, Dr. Ceja, and had scheduled outpatient surgery . - Consult GI for upper endoscopy scheduled early this afternoon with Dr. Solomon - Hgb remains stable - If all goes well with upper endoscopy, the patient can potentially go home afterwards. Quadriplegia - Continue on home medications including baclofen 10 mg QID, gabapentin 300 mg at noon and 600 mg QHS - Low air loss mattress ordered - Turn and repo Q2H Tracheostomy dependent - Continue trach care per nursing Neurogenic Bladder - Has chronic indwelling ovalles placed, last changed April 08, 2017 - planned to change during procedure today with sedation for patient comfort. Anxiety Panic attacks - Occur with change of tracheostomy - uses ativan 0.5 mg 30 minutes prior to change DVT ppx: Teds, heparin subQ - can certainly hold if surgical intervention CODE STATUS: FULL CODE, mother is POA Disposition: From home, has 24/7 nursing care in home, possible discharge within 24 hours if EGD is normal.
--- NOTE | 2017-05-27 11:38 | Discharge Instructions ---
Discharge Instructions Date of Service May 27, 2017. Admission Reason for Admission: Acute Transverse Myelitis Discharge Discharge Diagnosis / Problem: Transverse Myelitis, Non-healing abdominal wound s/p gtube placement Discharge Goals Goal(s): Decrease discomfort, Improve function Activity Recommendations Activity Limitations: resume your previous activity Lifting Limitations: gradually increase as tolerated Exercise/Sports Limitations: rest today Shower/Bathe: no limitations . Instructions / Follow-Up Instructions / Follow-Up You were admitted to [facility] with transverse myelitis, and nonhealing abdominal wound after previous gtube placement. During your stay here you underwent upper endoscopy by gastroenterology. You were treated with supportive care including home medications and tracheostomy care. - Your hemoglobin remained stable - You were stable for discharge to home with 24/ nursing care. Imaging studies which were completed include Upper Endoscopy, and were normal without signs of bleeding Medications: Continue taking all medications as prescribed Appointments: Follow up with your Primary Care Provider within 1 week. Follow up with General surgery, Dr. Ceja as already scheduled. Please call their office to confirm time and date. Current Hospital Diet Patient's current hospital diet: Regular diet Discharge Diet Recommended Diet: Regular Diet Pending Studies Studies pending at discharge: no Medical Emergencies . Who to Call and When: Medical Emergencies: If at any time you feel your situation is an emergency, please call 911 immediately. . Non-Emergent Contact Non-Emergency issues call your: Primary Care Provider Call Non-Emergent contact if: you have a fever, temperature is above 100.5, your pain is not controlled, your pain is worsening, your pain is unusual for you, your pain is concerning you, you have any medication questions other concerns. Call 911 or go directly to the Emergency Department if you experience chest pain , chest tightness, shortness of breath, or if you have other concerns regarding your health. . Past History Medical & Surgical History: (1) Bleeding from gastrostomy tube site (2) Acute transverse myelitis . "Provider Documentation" section prepared by Erlinda Shine. . VTE Core Measure Inpt VTE Proph given/why not?: Unfractionated heparin SQ, T.E.D. Stockings, SCD 's
[2017-05-27] MEDS: GABAPENTIN 300 MG CAP PO SCH (11:47)
[2017-05-27] MEDS ORDERED: MIDAZOLAM HCL 1 MG/ML 2ML VIAL ONE (15:01)
--- NOTE | 2017-05-27 15:20 | Endo History and Physical ---
History & Physical Date of Service: May 27, 2017. Chief Complaint: stomal bleeding Referring Physician: Tori Hernández History of Present Illness For EGD Past Surgical History Hx Cardiac Surgery: No Hx Abdominal Surgery: Yes (feeding tube placement ) Hx Post-Op Nausea and Vomiting: No Hx Cancer Surgery: No Hx Thoracic Surgery: Yes (tracheostomy ) Hx Orthopedic: No Hx Urinary Tract Surgery: No Social History Smoking Status: Never Smoker Smokeless Tobacco Use: No Hx Substance Use: No Hx Alcohol Use: No Allergies Coded Allergies: No Known Allergies (Unverified , 05/26/17) Current Medications Reported Home Medications Medications Dose Route/Sig Max Daily Dose Days Date Category Gabapentin 300 Mg Cap 1 Cap PO QDL 30 05/26/17 Reported Zanaflex (Tizanidine HCl) 2 Mg Cap 2 Mg PO BID 05/26/17 Reported Senokot (Senna) 8.6 Mg Tab 17.2 Mg PO HS 05/26/17 Reported Montelukast Sodium 10 Mg Tab 1 Tab PO HS 30 05/26/17 Reported Reglan (Metoclopramide HCl) 10 Mg Tab 5 Mg PO QID 05/26/17 Reported Neurontin (Gabapentin) 300 Mg Cap 600 Mg PO HS 05/26/17 Reported Pepcid (Famotidine) 20 Mg Tab 20 Mg PO DAILY 05/26/17 Reported Multivitamin (Multivitamins) Tab 1 Tab PO DAILY 05/26/17 Reported Bisac-Evac (Bisacodyl) 10 Mg Sup 10 Mg RE DAILY 05/26/17 Reported Lioresal (Baclofen) 10 Mg Tab 10 Mg PO QID 05/26/17 Reported Vital Signs Weight (Kilograms): 55.400 Height (Feet): 5 Height (Inches): 0.00 Date Time Temp Pulse Resp B/P (MAP) Pulse Ox O2 Delivery O2 Flow Rate FiO2 05/27/17 12:00 Room Air Mechanical Ventilator 05/27/17 12:00 36.9 72 18 109/74 (86) 96 Mechanical Ventilator 05/27/17 10:00 36.6 75 16 88/55 (66) 94 Mechanical Ventilator 05/27/17 08:00 36.6 69 16 100/71 (81) 96 Mechanical Ventilator 05/27/17 08:00 Room Air Mechanical Ventilator 05/27/17 07:32 21 05/27/17 04:31 66 18 93/54 (67) 97 Mechanical Ventilator 05/27/17 04:07 73 18 105/73 (84) 95 Mechanical Ventilator 05/27/17 04:01 36.4 79 18 105/73 (84) 96 Mechanical Ventilator 05/27/17 04:00 96 Mechanical Ventilator 05/27/17 03:31 72 17 99/64 (76) 94 Mechanical Ventilator 05/27/17 03:01 69 16 102/72 (82) 97 Mechanical Ventilator 05/27/17 02:31 69 16 117/78 (91) 98 Mechanical Ventilator 05/27/17 02:01 60 16 88/63 (71) 95 Mechanical Ventilator 05/27/17 01:31 60 16 89/61 (70) 97 Mechanical Ventilator 05/27/17 01:01 61 16 86/61 (69) 97 Mechanical Ventilator 05/27/17 00:31 60 16 95/60 (72) 97 Mechanical Ventilator 05/27/17 00:02 69 16 92/62 (72) 95 Mechanical Ventilator 05/27/17 00:01 36.7 63 21 87/60 (69) 88 Mechanical Ventilator 05/27/17 00:01 96 Mechanical Ventilator 05/26/17 23:31 61 21 96/63 (74) 97 Mechanical Ventilator 05/26/17 23:01 70 16 102/75 (84) 97 Mechanical Ventilator 05/26/17 22:31 67 16 103/73 (83) 98 Mechanical Ventilator 05/26/17 22:07 21 05/26/17 22:01 69 22 112/77 (89) 97 Mechanical Ventilator 05/26/17 21:31 75 24 103/70 (81) 97 Mechanical Ventilator 05/26/17 21:01 76 24 112/76 (88) 96 Mechanical Ventilator 05/26/17 21:00 96 Mechanical Ventilator 05/26/17 20:49 36.8 74 19 106/70 (82) 96 Mechanical Ventilator 05/26/17 18:56 36.8 76 18 103/68 (80) 95 Room Air 05/26/17 17:42 75 16 103/69 96 05/26/17 17:20 97 Mechanical Ventilator 8.0 05/26/17 17:08 75 16 103/69 96 Trach Collar Physical Exam General Appearance: + pertinent finding (Quadriplegic on vent with trach) Respiratory/Chest: Respiratory effort: good air movement Cardiovascular: Heart Auscultation: RRR Abdomen: Bowel Sounds: pertinent finding (patent G tube tract) Assessment and Plan Bleeding for EGD
--- NOTE | 2017-05-27 15:21 | Discharge Instructions ---
Endoscopy Patient Instructions Date / Procedure(s) Performed May 27, 2017. EGD Allergy Information Coded Allergies: No Known Allergies (Unverified , 05/26/17) Discharge Date / Findings May 27, 2017. Patent G tube tract with no bleeding Provider Instructions Activity Restrictions - No exercising or heavy lifting for 24 hours. - Do not drink alcohol the day of the procedure. - Do not drive a car or operate machinery until the day after the procedure. - Do not make any important decisions or sign important papers in 24 hours after the procedure. Following Day: - Return to full activity which may include returning to work/school. Diet Start your diet with liquids and light foods (jello, soup, juice, toast). Then eat your usual diet if not nauseated. Treatment For Common After Affects For mild abdominal pain, bloating, or excessive gas: - Rest - Eat lightly - Lie on right side Follow-Up Information Follow-up with as scheduled Anesthesia Information What You Should Know You have had a procedure that required some medicine to reduce anxiety and discomfort. This treatment is called moderate sedation. After receiving the treatment, you may be sleepy, but you will be able to breathe on your own. The effects of the treatment may last for several hours. Follow these instructions along with Activity/Diet recommendations noted above: * Do NOT do anything where dizziness or clumsiness would be dangerous. * Rest quietly at home today, then you can be up and about tomorrow. * Have a responsible person stay with you the rest of today. * You may have had an I.V. today. If so, you may take the dressing off later today. Recommendations Call your doctor if: * Trouble breathing * Continuous vomiting for more than 24 hours * Temperature above 101 degrees * Severe abdominal pain or bloating * Pain not relieved by pain medicine ordered * There is increased drainage or redness from any incision * A large amount of rectal bleeding greater than 2-3 tablespoons. (If you had a polyp/s removed or have hemorrhoids, a small amount of blood - from the rectum is to be expected.) * You have any unanswered questions or concerns. IN THE EVENT OF A SERIOUS EMERGENCY, GO TO THE NEAREST EMERGENCY ROOM Your discharge instructions were prepared by provider Víctor Harry. Patient Instructions Signature Page Robby Acevedo Patient (or Guardian) Signature/Date: I have read and understand the instructions given to me by my caregivers. Caregiver/RN/Doctor Signature/Date: The above-named patient and/or guardian has received patient instructions on this date. + Original Patient Signature Page (only) stays with chart. Please make copy for patient.
--- NOTE | 2017-05-27 15:25 | GI REPORT ---
Procedure Date: 05/27/2017 3:11 PM Procedure: Upper GI endoscopy Indications: Suspected upper gastrointestinal bleeding Medicines: Propofol total dose 90 mg IV, Midazolam 2 mg IV, Lidocaine 80 mg IV Complications: No immediate complications. Estimated Blood Loss: Estimated blood loss: none. Procedure: Pre-Anesthesia Assessment: - Prior to the procedure, a History and Physical was performed, and patient medications, allergies and sensitivities were reviewed. The patient's tolerance of previous anesthesia was reviewed. - The risks and benefits of the procedure and the sedation options and risks were discussed with the patient. All questions were answered and informed consent was obtained. After obtaining informed consent, the endoscope was passed under direct vision. Throughout the procedure, the patient's blood pressure, pulse, and oxygen saturations were monitored continuously. The scope was introduced through the mouth, and advanced to the second part of duodenum. The upper GI endoscopy was accomplished without difficulty. The patient tolerated the procedure well. Findings: The examined esophagus was normal. There was evidence of an intact gastrostomy with a patent tract present in the gastric body. This was characterized by an intact appearance. The examined duodenum was normal. Impression: - Normal esophagus. - Intact gastrostomy with a patent G-tube present characterized by an intact appearance. - Normal examined duodenum. - No specimens collected. Recommendation: - Return patient to [facility] for [facility] care. Víctor Harry M.D. Víctor Harry MD 05/27/2017 3:24:39 PM This report has been signed electronically. Note Initiated On: 05/27/2017 3:11 PM I attest to the content of the Intraoperative Record and orders documented therein, exceptions below
[2017-05-27] MEDS ORDERED: PROPOFOL IV EMULSION 10 MG/ML 20 ML VIAL IV ONE (15:28)
[2017-05-27] MEDS ORDERED: LIDOCAINE HCL 2% 2 ML VIAL (20MG/ML) ONE ×2 (15:28)
--- NOTE | 2017-05-27 15:40 | Anesthesiology Progress Note ---
Anesthesia Post Op Note Date & Time May 27, 2017 at 15:40 Vital Signs Pain Intensity: 0.0 Vital Signs Past 12 Hours Date Time Temp Pulse Resp B/P (MAP) Pulse Ox O2 Delivery O2 Flow Rate FiO2 05/27/17 15:03 37.3 94 22 114/82 (93) 99 Mechanical Ventilator 10 05/27/17 12:00 Room Air Mechanical Ventilator 05/27/17 12:00 36.9 72 18 109/74 (86) 96 Mechanical Ventilator 05/27/17 10:00 36.6 75 16 88/55 (66) 94 Mechanical Ventilator 05/27/17 08:00 36.6 69 16 100/71 (81) 96 Mechanical Ventilator 05/27/17 08:00 Room Air Mechanical Ventilator 05/27/17 07:32 21 05/27/17 04:31 66 18 93/54 (67) 97 Mechanical Ventilator 05/27/17 04:07 73 18 105/73 (84) 95 Mechanical Ventilator 05/27/17 04:01 36.4 79 18 105/73 (84) 96 Mechanical Ventilator 05/27/17 04:00 96 Mechanical Ventilator Notes Mental Status: alert / awake / arousable, participated in evaluation Pt Amnestic to Procedure: Yes Nausea / Vomiting: adequately controlled Pain: adequately controlled Airway Patency, RR, SpO2: stable & adequate BP & HR: stable & adequate Hydration State: stable & adequate Anesthetic Complications: no major complications apparent Brought back to ICU with ventilator and on supplemental oxygen. Patient awake and conversant. VSS. No comp
--- NOTE | 2017-05-27 15:51 | Discharge Summary ---
Discharge Summary Date of Service May 27, 2017. Discharge Summary Admission Date: May 26, 2017 at 16:38 Discharge Date: May 27, 2017 Discharge Disposition: Home with services Principal Diagnosis: bleeding gastrostomy site Procedures: egd, Dr spears, no bleeding noted, g tube tract seen Medication Reconciliation Continued Medications: Baclofen (Lioresal) 10 Mg Tab 10 MG PO QID, TAB Bisacodyl (Bisac-Evac) 10 Mg Sup 10 MG RE DAILY Famotidine (Pepcid) 20 Mg Tab 20 MG PO DAILY, TAB Gabapentin (Neurontin) 300 Mg Cap 600 MG PO HS, CAP Gabapentin (Gabapentin) 300 Mg Cap 1 CAP PO QDL for 30 Days, CAP 1 Refill Metoclopramide (Reglan) 10 Mg Tab 5 MG PO QID, TAB Montelukast Sodium (Montelukast Sodium) 10 Mg Tab 1 TAB PO HS for 30 Days, TAB 5 Refills Multivitamin (Multivitamin) Tab 1 TAB PO DAILY, TAB Senna (Senokot) 8.6 Mg Tab 17.2 MG PO HS, TAB Tizanidine (Zanaflex) 2 Mg Cap 2 MG PO BID, CAP Discharge Exam see progress note from today Hospital Course This is 31 yo M with PMHs of quadraplegia, neurogenic bladder with chronic indwelling ovalles, legally blind, nonhealing gastrocutaneous fistula d/t gastic tube, transverse myelitis, and polyneuritis who presents with bleeding surrounding previous gastric tube insertion site. GI for possible upper endoscopy there was an intact gastrostomy site noted, will have surgical correction in the future, no bleeding seen - Hgb remains stable Quadriplegia - Continue on home medications including baclofen 10 mg QID, gabapentin 300 mg at noon and 600 mg QHS Tracheostomy dependent/Vent dependent Neurogenic Bladder - Has chronic indwelling ovalles placed, last changed April 08, 2017 - changed ovalles with sedation Anxiety Panic attacks - Occur with change of tracheostomy - uses ativan 0.5 mg 30 minutes prior to change CODE STATUS: FULL CODE, mother is POA Disposition:to home, has 24/7 nursing care in home. PA Physician Supervision Note: I interviewed and examined the patient. Discussed with Martha ESPINOZA and agree with findings and plan as documented in the note. Any exceptions or clarifications are listed here: None This patient was admitted with bleeding from his previous G-tube site not acute transverse myelitis. This morning the patient's in his usual state he's on a chronic home ventilator for his quadriplegia. His mother is at the bedside. Vital signs were stable next I inspected this site with when my PA is crusted with no acute bleeding. Patient is proceeding to upper endoscopy to evaluate the stomach for a fistulous tract to the skin. If he stable after this procedure he potentially could return home with outpatient surgical follow-up Documented By: Son Judge Total Time Spent: Greater than 30 minutes This includes examination of the patient, discharge planning, medication reconciliation, and communication with other providers. Discharge Instructions Please refer to the electronic Patient Visit Report (Discharge Instructions) for additional information.
--- NOTE | 2017-05-27 16:39 | PROGRESS NOTE ---
DATE: 05/27/2017 The patient presents to the endoscopy center today for EGD to evaluate for his gastrostomy stomal bleeding. The patient underwent an EGD which showed a normal esophagus and duodenum. In the stomach there was a patent gastrostomy tube orifice which was healthy in appearance with no bleeding. IMPRESSION: The patient's gastrostomy tube tract is patent but no source of bleeding from inside the stomach. Dr. Bazan is covering for the weekend.
[2017-05-31] MEDS ORDERED: ACET-1311 PO (11:37)
[2017-05-31] MEDS ORDERED: ALBUTEROL NEB INH (11:37)
[2017-05-31] MEDS ORDERED: LORA-741 PO (11:37)
[2017-07-07] MEDS ORDERED: GABA-113 PO (13:59)
[2017-07-09] MEDS ORDERED: CEPH500C2 PO (10:33)
== END 2017-05-27 18:55 | disposition home health service (06) | DRG 393 ==
LOC: EDBD 13:12 → C.EDB 13:13 → C.3E 16:38 → ENRESERV 16:54 → C.MSICU 20:45
PROVIDERS: ADMIT Hospitalist; ATTEND Internal Medicine
PROC: 0DJ08ZZ Inspection of Upper Intestinal Tract, Via Natural or Artificial Opening Endoscopic (ICD-10-PCS; principal; 2017-05-27 15:02)
DX: K63.2 Fistula of intestine (principal); G82.50 Quadriplegia, unspecified; G37.3 Acute transverse myelitis in demyelinating disease of central nervous system; N31.9 Neuromuscular dysfunction of bladder, unspecified; H54.8 Legal blindness, as defined in USA; G62.9 Polyneuropathy, unspecified; Z79.899 Other long term (current) drug therapy; Z93.0 Tracheostomy status; Z93.1 Gastrostomy status

== ENCOUNTER 2017-06-09 08:40 | Inpatient (IN) | payer OTHER ==
[2017-05-31 11:38] VITALS: BMI 23.0
--- NOTE | 2017-05-31 12:25 | PAT Medication Instructions ---
Service Date May 31, 2017. Current Home Medication List Acetaminophen (Tylenol), 325 MG PO UD PRN for Pain Baclofen (Lioresal), 10 MG PO QID Bisacodyl (Bisac-Evac), 10 MG RE HS Famotidine (Pepcid), 20 MG PO QAM Gabapentin (Neurontin), 600 MG PO HS Gabapentin (Gabapentin), 1 CAP PO QDL Lorazepam (Ativan), 0.5 MG PO UD PRN for TRACH CHANGES Metoclopramide (Reglan), 5 MG PO QID Montelukast Sodium (Montelukast Sodium), 1 TAB PO HS Multivitamin (Multivitamin), 1 TAB PO QAM Senna (Senokot), 17.2 MG PO HS Tizanidine (Zanaflex), 2 MG PO BID [Albuterol Neb ], 1 DOSE INH UD Medication Instructions For Your Scheduled Surgery - Hold the following medications the morning of surgery: Tizanidine (Zanaflex), 2 MG PO BID Multivitamin (Multivitamin), 1 TAB PO QAM Metoclopramide (Reglan), 5 MG PO QID Famotidine (Pepcid), 20 MG PO QAM Baclofen (Lioresal), 10 MG PO QID - Take the following medications the morning of surgery with a sip of water: [Albuterol Neb ], 1 DOSE INH UD via TRACH (if needed) Gabapentin (Gabapentin), 1 CAP PO QDL Lorazepam (Ativan), 0.5 MG PO UD PRN for TRACH CHANGES (if needed) Acetaminophen (Tylenol), 325 MG PO UD PRN for Pain (if needed) - Take the following medications as scheduled the night before surgery: [Albuterol Neb ], 1 DOSE INH UD via TRACH (if needed) Tizanidine (Zanaflex), 2 MG PO BID Senna (Senokot), 17.2 MG PO HS Montelukast Sodium (Montelukast Sodium), 1 TAB PO HS Metoclopramide (Reglan), 5 MG PO QID Gabapentin (Gabapentin), 1 CAP PO QDL Lorazepam (Ativan), 0.5 MG PO UD PRN for TRACH CHANGES (if needed) Gabapentin (Neurontin), 600 MG PO HS Bisacodyl (Bisac-Evac), 10 MG RE HS Baclofen (Lioresal), 10 MG PO QID. Acetaminophen (Tylenol), 325 MG PO UD PRN for Pain (if needed) If you have any questions please call us at [phone] or [phone] or [phone]
[~2017-06-09] VITALS: Ht 152.4 cm; Wt 55.0 kg
[2017-06-09] VITALS (8 sets, daily range): BP systolic 91–143; BP diastolic 63–89; PULSE 69–91; TEMP 36.7–37.5; O2SAT 87–98; Ht 152.4 cm; Wt 55.0 kg
[~2017-06-09 08:40] MED LIST: ACET-1311 PO; ALBUTEROL NEB INH; BACL10TA PO; BISA10SU7 RE; CEFAZOLIN 1000MG/55 ML D5W IV SCH; FAMO20TA11 PO; GABA-113 PO; GABA1CAP4 PO; HEPARIN SOD 5000 UNIT/0.5 ML CARP SQ SCH; LACTATED RINGER'S 1000ML 1,000 ML IV SCH; LORA-741 PO; METO-157 PO; MONT1TAB5 PO; MULT-506 PO; SENN-61 PO; TIZA2CAP PO
[2017-06-09] MEDS ORDERED: FENTANYL CITRATE INJ 50 MCG/1 ML 2 ML VIAL ONE (09:31)
[2017-06-09] MEDS ORDERED: MIDAZOLAM HCL 1 MG/ML 2ML VIAL ONE (09:32)
--- NOTE | 2017-06-09 09:47 | History & Physical Bridge Note ---
H&P Re-Evaluation Bridge Note: I have examined the patient, reviewed the History & Physical and in the interval since the performance of the History & Physical I have noted the following changes of clinical significance: No changes noted
[2017-06-09] MEDS ORDERED: BUPIVACAINE/EPINEPHRINE 0.5% MPF 1:200,000 30 ML VIAL ONE (10:02)
[2017-06-09] MEDS ORDERED: PROPOFOL IV EMULSION 10 MG/ML 20 ML VIAL IV ONE (11:09)
[2017-06-09] MEDS ORDERED: EpHEDrine SULFATE 50MG/5ML SYR ONE (11:09)
[2017-06-09] MEDS ORDERED: LORAZEPAM 0.5 MG TAB PO PRN (11:45)
[2017-06-09] MEDS ORDERED: BISACODYL 10 MG SUPP PR PRN (11:45)
[2017-06-09] MEDS ORDERED: HYDROCODONE/ACETAMOPHEN 5/325MG TAB PO PRN (11:45)
[2017-06-09] MEDS ORDERED: ONDANSETRON INJ 2 MG/ML 2 ML VIAL IV PRN (11:45)
[2017-06-09] MEDS ORDERED: MoRPHine SULFATE 4 MG/ML 1 ML CARP\\VIAL IV PRN (11:45)
--- NOTE | 2017-06-09 11:49 | [facility] Operative Report ---
Operative Report Operative Date Jun 09, 2017. Pre-Operative Diagnosis 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 Post-Operative Diagnosis Same Procedure(s) Performed Laparoscopy with Partial Gastrectomy, Takedown of Gastrocutaneous Fistula Surgeon Dr Ceja Acrobatic Dancer Surgeon(s) Artie Bahena PA-C Estimated Blood Loss 5ml Findings normal anatomy other than known fistula Specimens none Anesthesia get Complication(s) None Disposition Recovery Room / PACU Description of Procedure After informed consent was obtained the patient was taken the operating suite and placed in supine position. The patient already has a permanent tracheostomy and he was connected to the anesthesia machine. The abdomen was then sterilely prepped and draped with a Betadine solution. The I made a supraumbilical incision with 11 blade scalpel and carried this down through the soft tissue using electrocautery. The anterior rectus fascia was opened using electrocautery and 2 #0 Vicryl stay sutures were placed. Peritoneum was entered using blunt finger penetration and a finger sweep was performed. A 12 mm Romero trocar was placed and the abdomen was insufflated 18 mmHg. The laparoscope was inserted and the abdomen was examined in 360. There was a very discrete gastrocutaneous fistula visible in the left upper quadrant. Remainder of his organs were normal including small and large bowel liver gallbladder etc. I placed a right midabdominal 5 mm trocar and a left midabdominal 5 mm trocar. We used traction countertraction and the Harmonic scalpel to take down some of the hernia sac and adhesions around the area of the fistula. Once we had this cleared out I then used a CHRISTOPHER purple cartridge stapler to transect part of the stomach connected to the fistulous tract. This was basically an area on the greater curvature of the stomach. Once we transected the stomach we examined the staple lines there was adequate hemostasis and the staple line appeared to be tight and intact. We then grabbed the stapled portion connected to the fistulous tract and gave downward traction and used a Harmonic scalpel to take down the stomach and fistulous tract and removed it from the abdominal cavity. A quick look around the abdomen showed no other abnormalities. The trochars were all removed and the abdomen was desufflated. We then made an elliptical incision around the excoriated skin on the external part the fistulous tract. We removed the tract any residual stomach and mucosa the whole way down to the fascia itself. We discarded all of this. I then closed the fascia from the outside using 0 Vicryl in interrupted [id number] fashion. The wound was then thoroughly irrigated and skin was closed using 3-0 Prolene in simple interrupted fashion. Xeroform and a sterile dressing were applied. The fascia of the camera port was closed using 0 Vicryl [id number] fashion as well. All those upper scopic incisions were irrigated and closed with 4-0 Monocryl. Skin glue was used address those. Marcaine was injected around all the incision for postoperative analgesia. The patient was awaken and transferred to recovery in stable condition I attest to the content of the Intraoperative Record and any orders documented therein. Any exceptions are noted below.
--- NOTE | 2017-06-09 13:15 | Anesthesiology Progress Note ---
Anesthesia Post Op Note Date & Time Jun 09, 2017 at 13:14 Vital Signs Pain Intensity: 0 Vital Signs Past 12 Hours Date Time Temp Pulse Resp B/P (MAP) Pulse Ox O2 Delivery O2 Flow Rate FiO2 06/09/17 12:35 36.3 71 16 137/87 98 Mechanical Ventilator Trach Collar 06/09/17 12:25 71 16 141/91 97 Mechanical Ventilator Trach Collar 06/09/17 12:15 74 16 149/87 97 Mechanical Ventilator Trach Collar 06/09/17 12:05 74 16 145/93 97 Mechanical Ventilator Trach Collar 06/09/17 11:55 36.2 74 16 170/98 97 Mechanical Ventilator Trach Collar 06/09/17 09:35 37.5 85 18 106/75 (85) 95 Room Air Mechanical Ventilator Notes Mental Status: alert / awake / arousable, participated in evaluation Pt Amnestic to Procedure: Yes Nausea / Vomiting: adequately controlled Pain: adequately controlled Airway Patency, RR, SpO2: stable & adequate BP & HR: stable & adequate Hydration State: stable & adequate Anesthetic Complications: no major complications apparent
[2017-06-09] MEDS: LACTATED RINGER'S 1000ML 1,000 ML IV SCH ×2 (14:46→20:02)
[2017-06-09] MEDS: BACLOFEN 10 MG TAB PO SCH ×3 (14:46→20:11)
[2017-06-09] MEDS: METOCLOPRAMIDE HCL 5 MG TAB PO SCH ×3 (15:14→20:11)
[2017-06-09] MEDS: ALBUTEROL HFA 8 GM INHALER INH SCH (20:25)
[2017-06-09] MEDS ORDERED: MONTELUKAST SOD 10 MG TAB PO SCH (21:00)
[2017-06-09] MEDS ORDERED: GABAPENTIN 600 MG TAB PO SCH (21:00)
[2017-06-09] MEDS ORDERED: SENNA 8.6 MG TAB PO SCH (21:00)
--- NOTE | 2017-06-09 22:59 | Critical Care Consultation ---
Critical Care Consultation Date of Consultation: Jun 09, 2017. Attending Physician: Tommy Ceja D.O. Reason for Consultation: Ventilatory management for chronically ventilated patient status post laparoscopy with partial gastrectomy and takedown of gastrocutaneous fistula. History of Present Illness The patient is a 31-year-old male with an unfortunate past medical history of autoimmune transverse myelitis he was ventilatory dependent with tracheostomy who is admitted to the ICU from the OR after laparoscopy with partial gastrectomy secondary to gastric cutaneous fistula formation from previous G- tube. Patient had former G-tube that had persistent leaking resulting in multiple complications, specifically gastrocutaneous fistula. Because of this, surgical intervention became necessary for management. Patient underwent procedure today by Dr. Ceja without complication. There is 5 mL estimated blood loss throughout the procedure. He was brought to the emergency department for continued ventilatory management from the patient's home ventilator. Patient is awake and alert on exam and has no complaints of pain. He reports being hungry at this time. The patient denies any headaches, dizziness, lightheadedness, or complaints of pain otherwise. Past Medical/Surgical History Medical Problems: (1) Acute transverse myelitis (2) Gastrocutaneous fistula (3) Quadriplegia (4) Ventilator dependent Social History Smoking Status: Never Smoker Smokeless Tobacco Use: No Alcohol Use: none Drug Use: none Marital Status: single Housing Status: lives with family Occupation Status: disabled Allergies Coded Allergies: No Known Allergies (Unverified , 06/09/17) Home Medications Scheduled Baclofen (Lioresal), 10 MG PO QID Bisacodyl (Bisac-Evac), 10 MG RE HS Famotidine (Pepcid), 20 MG PO QAM Gabapentin (Neurontin), 600 MG PO HS Gabapentin (Gabapentin), 1 CAP PO QDL Metoclopramide (Reglan), 5 MG PO QID Montelukast Sodium (Montelukast Sodium), 1 TAB PO HS Multivitamin (Multivitamin), 1 TAB PO QAM Senna (Senokot), 17.2 MG PO HS Tizanidine (Zanaflex), 2 MG PO BID [Albuterol Neb ], 1 DOSE INH UD Scheduled PRN Acetaminophen (Tylenol), 325 MG PO UD PRN for Pain Lorazepam (Ativan), 0.5 MG PO UD PRN for TRACH CHANGES Current Inpatient Medications Current Inpatient Medications Medications (Trade) Dose Ordered Sig/Jameson Route Start Time Stop Time Status Last Admin Dose Admin Lactated Ringer's 1,000 ml @ 15 mls/hr Q24H IV 06/09/17 06:00 06/10/17 05:59 Lactated Ringer's 1,000 ml @ 100 mls/hr Q10H IV 06/09/17 11:34 07/09/17 11:33 06/09/17 20:02 100 MLS/HR Ondansetron HCl (Zofran Inj) 4 mg Q4H PRN IV 06/09/17 11:45 07/09/17 11:44 Acetaminophen/ Hydrocodone Bitart (Ellsworth 5/325 Tab) 1 tab Q4H PRN PO 06/09/17 11:45 06/23/17 11:44 Morphine Sulfate (MoRPHine SULFATE INJ) 4 mg Q1H PRN IV 06/09/17 11:45 06/23/17 11:44 Baclofen (Lioresal Tab) 10 mg QID PO 06/09/17 13:00 07/09/17 12:59 06/09/17 20:11 10 MG Bisacodyl (Dulcolax Supp) 10 mg HS PRN [place] 06/09/17 11:45 07/09/17 11:44 06/09/17 21:00 10 MG Famotidine (Pepcid Tab) 20 mg QAM PO 06/10/17 09:00 07/10/17 08:59 Gabapentin (Neurontin Cap) 300 mg QDL PO 06/10/17 11:30 07/10/17 11:29 Gabapentin (Neurontin Tab) 600 mg HS PO 06/09/17 21:00 07/09/17 20:59 06/09/17 20:11 600 MG Lorazepam (Ativan Tab) 0.5 mg UD PRN PO 06/09/17 11:45 07/09/17 11:44 Metoclopramide HCl (Reglan Tab) 5 mg QID PO 06/09/17 13:00 07/09/17 12:59 06/09/17 20:11 5 MG Montelukast Sodium (Singulair Tab) 10 mg HS PO 06/09/17 21:00 07/09/17 20:59 06/09/17 20:11 10 MG Multivitamins (Multivitamin Tab) 1 tab QAM PO 06/10/17 09:00 07/10/17 08:59 Senna (Senokot Tab) 17.2 mg HS PO 06/09/17 21:00 07/09/17 20:59 06/09/17 20:11 17.2 MG Tizanidine HCl (Zanaflex Tab) 2 mg BID PO 06/09/17 21:00 07/09/17 20:59 06/09/17 20:10 2 MG Albuterol (Ventolin Hfa Inhaler) 1 puffs BID INH 06/09/17 21:00 07/09/17 20:59 06/09/17 20:25 1 PUFFS Review of Systems A complete 10-point Review of Systems was discussed with the patient, with pertinent positives and negatives listed in the History of Present Illness. All remaining Review of Systems questions can be considered negative unless otherwise specified. Physical Exam Date Time Temp Pulse Resp B/P (MAP) Pulse Ox O2 Delivery O2 Flow Rate FiO2 06/09/17 20:00 37.1 89 16 100/72 (81) 87 Room Air Mechanical Ventilator 06/09/17 18:00 87 16 91/63 (72) 92 Mechanical Ventilator 06/09/17 16:00 Mechanical Ventilator 06/09/17 16:00 37.1 80 20 94/63 (73) 95 Mechanical Ventilator 06/09/17 14:00 69 16 126/89 (101) 98 Mechanical Ventilator 06/09/17 13:16 36.7 72 16 143/81 98 Mechanical Ventilator 06/09/17 12:35 36.3 71 16 137/87 98 Mechanical Ventilator Trach Collar 06/09/17 12:25 71 16 141/91 97 Mechanical Ventilator Trach Collar 06/09/17 12:15 74 16 149/87 97 Mechanical Ventilator Trach Collar 06/09/17 12:05 74 16 145/93 97 Mechanical Ventilator Trach Collar 06/09/17 11:55 36.2 74 16 170/98 97 Mechanical Ventilator Trach Collar 06/09/17 09:35 37.5 85 18 106/75 (85) 95 Room Air Mechanical Ventilator VITAL SIGNS - Vital signs and nursing notes were reviewed. GENERAL - 31-year-old male appearing his stated age who is in no acute distress. Contractures of all extremities. HEAD - NC/AT. EYES - Sclera anicteric. Palpebral conjunctiva pink and moist with no injection noted. NECK - Tracheostomy tube in place without drainage. LUNGS - Chest wall symmetric without accessory muscle use, intercostals retractions, or central cyanosis. Normal vesicular breath sounds CTA B/L. No wheezes, rales, or rhonchi appreciated. CARDIAC - RRR with S1/S2. No murmur, rubs, or gallops appreciated. ABDOMEN - Abdominal contour flat. Surgical incision sites dressed without drainage or blood noted. EXTREMITIES - With contractures throughout. PSYCH - A&Ox3 and cooperates fully with examiner. Pt is very pleasant and interacts well with examiner. Assessment & Plan (1) Gastrocutaneous fistula (2) Ventilator dependent (3) Acute transverse myelitis Reason Critically Ill: 31-year-old male status post laparoscopic partial gastrectomy with takedown of gastrocutaneous fistula. Ventilatory dependent. Neuro - * CAM ICU: NEGATIVE * History of Autoimmune Transverse Myelitis - ventilatory dependent. * Continue multiple home Rx. * Pain - Morphine PRN pain. Cardiac - * No known cardiac disease. * Monitor on tele. * EKGs w/ c/o CP. Respiratory - * Ventilatory dependent secondary to autoimmune transverse myelitis: * Home Ventilator VIASYS [id number] - Settings: 16/500/5/Room Air. * Will use home ventilator with settings. * Monitor pulse oximetry closely. * Albuterol as scheduled. GI - * Tolerating diet at this point. * Progress per Surgery orders. RENAL/LYTES - * Tolerating PO well at this point. * Monitor lytes - replace if needed. - * Jade Cath ENDO - * No h/o DM or Tyroid Dz. * BSGs per protocol. HEME - * Stable outpatient H&H w/ minimal reported intraoperative blood loss (~5mL). * Monitor for any hemodynamic instability. ID - * No concern for infection at this point. * Monitor fever curve in the setting of recent surgery. LINES/IV ACCESS - * PIVs intact. * Jade Catheter DVT PROPHYLAXIS - * Received Heparin preoperatively. Will defer to general surgery in the setting of recent surgery. Thank you for this consultation allow us to be part of this patient's care. Please refer to my attending physician's documentation for any further recommendations. I have personally evaluated and examined this patient. I agree with assessment and plan of Radha Conn PA-C. Patient in ICU secondary to chronic ventilator dependence. During my evaluation patient had meal, pain well controlled, anticipate discharge tomorrow. Level V billing.
[2017-06-10] VITALS (18 sets, daily range): BP systolic 85–102; BP diastolic 49–69; PULSE 70–94; TEMP 37–37.2; O2SAT 91–95
[2017-06-10] MEDS: LACTATED RINGER'S 1000ML 1,000 ML IV SCH (05:36)
--- NOTE | 2017-06-10 07:21 | Clinical Documentation Query ---
CLINICAL DOCUMENTATION QUERY Dr. SOLIS, In your clinical opinion is this patient being managed for: ( ) Quadriplegia ( ) Not Agree ( ) Other explanation of clinical findings (Please Explain) ( ) Unable to determine (Please Define) ( ) Need to Discuss The medical record reflects the following clinical findings, treatment, and risk factors. Clinical Indicators: 31 yo male presenting for scheduled surgery for gastrocutaneous fistula. History of autoimmune transverse myelitis. Noted to be contractured x 4 extremities and completely dependent for all ADL's. Pt is also ventilator dependent. Treatment: Complete care by [facility] staff and 24 hour caregivers at home Risk Factors: autoimmune transverse myelitis Please clarify and document your clinical opinion in the progress notes and discharge summary. Terms such as "probable", "suspected", "likely", "questionable", "possible", or "still to be ruled out" are acceptable. IF IN AGREEMENT, YOU MUST DOCUMENT ABOVE DIAGNOSTIC STATEMENT IN DAILY PROGRESS NOTES AND DISCHARGE SUMMARY. This document is not part of the patient's record. Thank You, Chuyita Lopez, ILENE [phone]
--- NOTE | 2017-06-10 07:24 | Clinical Documentation Query ---
CLINICAL DOCUMENTATION QUERY DR. GARCIA, In your clinical opinion is this patient being managed for: ( X ) Quadriplegia ( ) Not Agree ( ) Other explanation of clinical findings (Please Explain) ( ) Unable to determine (Please Define) ( ) Need to Discuss The medical record reflects the following clinical findings, treatment, and risk factors. Clinical Indicators: 31 yo male presenting for scheduled surgery for gastrocutaneous fistula. History of autoimmune transverse myelitis. Noted to be contractured x 4 extremities and completely dependent for all ADL's. Pt is also ventilator dependent. Treatment: Complete care by [facility] staff and 24 hour caregivers at home Risk Factors: autoimmune transverse myelitis Please clarify and document your clinical opinion in the progress notes and discharge summary. Terms such as "probable", "suspected", "likely", "questionable", "possible", or "still to be ruled out" are acceptable. IF IN AGREEMENT, YOU MUST DOCUMENT ABOVE DIAGNOSTIC STATEMENT IN DAILY PROGRESS NOTES AND DISCHARGE SUMMARY. This document is not part of the patient's record. Thank You, Chuyita Lopez, ILENE [phone]
--- NOTE | 2017-06-10 07:25 | Clinical Documentation Query ---
CLINICAL DOCUMENTATION QUERY Dr. CEDEÑO, In your clinical opinion is this patient being managed for: ( ) Quadriplegia ( ) Not Agree ( ) Other explanation of clinical findings (Please Explain) ( ) Unable to determine (Please Define) ( ) Need to Discuss The medical record reflects the following clinical findings, treatment, and risk factors. Clinical Indicators: 31 yo male presenting for scheduled surgery for gastrocutaneous fistula. History of autoimmune transverse myelitis. Noted to be contractured x 4 extremities and completely dependent for all ADL's. Pt is also ventilator dependent. Treatment: Complete care by [facility] staff and 24 hour caregivers at home Risk Factors: autoimmune transverse myelitis Please clarify and document your clinical opinion in the progress notes and discharge summary. Terms such as "probable", "suspected", "likely", "questionable", "possible", or "still to be ruled out" are acceptable. IF IN AGREEMENT, YOU MUST DOCUMENT ABOVE DIAGNOSTIC STATEMENT IN DAILY PROGRESS NOTES AND DISCHARGE SUMMARY. This document is not part of the patient's record. Thank You, Chuyita Lopez, ILENE [phone]
[2017-06-10] MEDS: ALBUTEROL HFA 8 GM INHALER INH SCH (08:19)
[2017-06-10] MEDS: BACLOFEN 10 MG TAB PO SCH ×2 (08:43→12:14)
[2017-06-10] MEDS: METOCLOPRAMIDE HCL 5 MG TAB PO SCH ×2 (08:43→12:14)
[2017-06-10] MEDS ORDERED: MULTIVITAMIN TAB PO SCH (09:00)
[2017-06-10] MEDS ORDERED: FAMOTIDINE 20 MG TAB PO SCH (09:00)
[2017-06-10 09:49] LABS: BASO % 0.1 %; BASO ABS # 0.01 K/uL (0-0.2); COMPLETE YES; EOS % 2.6 %; HEMATOCRIT 33.9 % (42-52); IG% 0.1 %; LYMPH ABS # 2.31 K/uL (1.2-3.4); MEAN CELL VOLUME 86.3 fL (80-100); MEAN CORPUSCULAR HGB CONC 33.6 g/dl (32-36); MEAN PLATELET VOLUME 10.8 fL (7.4-10.4); MONO % 9.3 %; NEUT % 55.9 %; PLATELET COUNT 208 K/uL (130-400); RED BLOOD COUNT 3.93 M/uL (4.7-6.1); WHITE BLOOD COUNT 7.21 K/uL (4.8-10.8)
--- NOTE | 2017-06-10 09:57 | Surgery Progress Note ---
Surgery Progress Note Date of Service Jun 10, 2017. Subjective Post OP Day: 1 + feeling well, + diet (tolerating), No complaints (denies pain), No nausea Objective Vital Signs: Date Time Temp Pulse Resp B/P (MAP) Pulse Ox O2 Delivery O2 Flow Rate FiO2 06/10/17 08:30 93 Room Air Mechanical Ventilator 06/10/17 08:19 21 06/10/17 08:01 37.2 86 16 94/68 (77) 92 Room Air Mechanical Ventilator 06/10/17 08:00 83 16 91 06/10/17 07:01 74 16 98/68 (78) 94 06/10/17 07:00 74 16 93 06/10/17 06:00 79 16 89/56 (67) 93 06/10/17 04:00 93 Room Air Mechanical Ventilator 06/10/17 04:00 37.0 75 16 93/60 (71) 93 Mechanical Ventilator 06/10/17 02:00 70 17 89/61 (70) 94 Mechanical Ventilator 06/10/17 00:01 37.1 76 16 93 Mechanical Ventilator 06/09/17 23:59 93 Room Air Mechanical Ventilator 06/09/17 22:00 91 17 103/66 (78) 89 Mechanical Ventilator 06/09/17 20:00 87 Room Air Mechanical Ventilator 06/09/17 20:00 37.1 89 16 100/72 (81) 87 Room Air Mechanical Ventilator 06/09/17 18:00 87 16 91/63 (72) 92 Mechanical Ventilator 06/09/17 16:00 Mechanical Ventilator 06/09/17 16:00 37.1 80 20 94/63 (73) 95 Mechanical Ventilator 06/09/17 14:00 69 16 126/89 (101) 98 Mechanical Ventilator 06/09/17 13:16 36.7 72 16 143/81 98 Mechanical Ventilator 06/09/17 12:35 36.3 71 16 137/87 98 Mechanical Ventilator Trach Collar 06/09/17 12:25 71 16 141/91 97 Mechanical Ventilator Trach Collar 06/09/17 12:15 74 16 149/87 97 Mechanical Ventilator Trach Collar 06/09/17 12:05 74 16 145/93 97 Mechanical Ventilator Trach Collar 06/09/17 11:55 36.2 74 16 170/98 97 Mechanical Ventilator Trach Collar Abdomen: soft Incision(s): drainage (small amount from umbilical incision) Laboratory Results: Results Past 24 Hours Test 06/10/17 09:41 Range/Units White Blood Count 7.21 4.8-10.8 K/uL Red Blood Count 3.93 4.7-6.1 M/uL Hemoglobin 11.4 14.0-18.0 g/dL Hematocrit 33.9 42-52 % Mean Corpuscular Volume 86.3 80-100 fL Mean Corpuscular Hemoglobin 29.0 25-34 pg Mean Corpuscular Hemoglobin Concent 33.6 32-36 g/dl Platelet Count 208 130-400 K/uL Mean Platelet Volume 10.8 7.4-10.4 fL Neutrophils (%) (Auto) 55.9 % Lymphocytes (%) (Auto) 32.0 % Monocytes (%) (Auto) 9.3 % Eosinophils (%) (Auto) 2.6 % Basophils (%) (Auto) 0.1 % Neutrophils # (Auto) 4.02 1.4-6.5 K/uL Lymphocytes # (Auto) 2.31 1.2-3.4 K/uL Monocytes # (Auto) 0.67 0.11-0.59 K/uL Eosinophils # (Auto) 0.19 0-0.5 K/uL Basophils # (Auto) 0.01 0-0.2 K/uL RDW Standard Deviation 47.5 36.4-46.3 fL RDW Coefficient of Variation 15.1 11.5-14.5 % Immature Granulocyte % (Auto) 0.1 % Immature Granulocyte # (Auto) 0.01 0.00-0.02 K/uL Microbiology Results 06/09/17 MRSA DNA Surveillance Screen - Final, Complete Specimen Negative for MRSA by DNA Probe Assessment & Plan s/p laparoscopic takedown of gastrocutaneous fistula not having any pain tolerating diet stable for discharge
[2017-06-10 10:14] LABS: BUN/CREATININE RATIO 13.3 (10-20); CALCIUM 9.2 mg/dl (8.5-10.1); CREATININE 0.94 mg/dl (0.60-1.40); MAGNESIUM 2.1 mg/dl (1.8-2.4); POTASSIUM 3.7 mmol/L (3.5-5.1)
[2017-06-10 10:15] LABS: PHOSPHORUS 3.1 mg/dl (2.5-4.9)
--- NOTE | 2017-06-10 11:27 | Discharge Instructions ---
Discharge Instructions Date of Service Jun 10, 2017. 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 Instructions / Follow-Up Instructions / Follow-Up follow up with Dr. Ceja as scheduled. call [phone] if you have any questions or problems. Current Hospital Diet Patient's current hospital diet: Regular Diet Discharge Diet Recommended Diet: Regular Diet Procedures Procedures Performed: Laparoscopy with Partial Gastrectomy, Takedown of Gastrocutaneous Fistula Pending Studies Studies pending at discharge: no Medical Emergencies . Who to Call and When: Medical Emergencies: If at any time you feel your situation is an emergency, please call 911 immediately. . Non-Emergent Contact Non-Emergency issues call your: Primary Care Provider, Surgeon Call Non-Emergent contact if: temperature is above 101, wound has increased drainage, wound has increased redness, wound has increased pain . "Provider Documentation" section prepared by Tommy Ceja. . VTE Core Measure Inpt VTE Proph given/why not?: Unfractionated heparin SQ, T.E.D. Stockings
[2017-06-10] MEDS ORDERED: GABAPENTIN 300 MG CAP PO SCH (11:30)
--- NOTE | 2017-06-10 13:31 | Anesthesiology Progress Note ---
Anesthesia Post Op Note Date & Time Jun 10, 2017 at 13:30 Vital Signs Pain Intensity: 0.0 Vital Signs Past 12 Hours Date Time Temp Pulse Resp B/P (MAP) Pulse Ox O2 Delivery O2 Flow Rate FiO2 06/10/17 11:52 37.2 87 16 94 Mechanical Ventilator 06/10/17 11:30 94 Room Air Mechanical Ventilator 06/10/17 11:00 87 16 87/63 (71) 94 Room Air Mechanical Ventilator 06/10/17 10:01 84 16 85/49 (61) 92 06/10/17 10:00 86 16 92 06/10/17 09:01 82 16 102/67 (79) 95 06/10/17 09:00 80 17 94 06/10/17 08:30 93 Room Air Mechanical Ventilator 06/10/17 08:19 21 06/10/17 08:01 37.2 86 16 94/68 (77) 92 Room Air Mechanical Ventilator 06/10/17 08:00 83 16 91 06/10/17 07:01 74 16 98/68 (78) 94 06/10/17 07:00 74 16 93 06/10/17 06:00 79 16 89/56 (67) 93 06/10/17 04:00 93 Room Air Mechanical Ventilator 06/10/17 04:00 37.0 75 16 93/60 (71) 93 Mechanical Ventilator 06/10/17 02:00 70 17 89/61 (70) 94 Mechanical Ventilator Notes Mental Status: alert / awake / arousable, participated in evaluation Pt Amnestic to Procedure: Yes Nausea / Vomiting: adequately controlled Pain: adequately controlled Airway Patency, RR, SpO2: stable & adequate BP & HR: stable & adequate Hydration State: stable & adequate Anesthetic Complications: no major complications apparent patient on home ventilator.
--- NOTE | 2017-06-15 02:17 | DISCHARGE SUMMARY ---
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 PROCEDURE PERFORMED: Laparoscopy with partial gastrectomy and takedown of gastrocutaneous fistula. 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 He was admitted through same day and taken to the operating room for laparoscopy and takedown of the fistula with partial gastrectomy. The procedure was well tolerated. He was ventilator dependent and was transferred to ICU on his routine ventilator settings. He was observed overnight and the next morning, was tolerating diet. He did not require any analgesics. His abdomen was soft and incisions were dry other than minimal amount of drainage from the umbilical incision. He was stable for discharge. DISCHARGE INSTRUCTIONS: Discharge home with the assistance of his family. Follow up with Dr. Ceja in 7-10 days. DISCHARGE MEDICATIONS: Tylenol 325 mg as needed for pain, baclofen 10 mg p.o. q.i.d., bisacodyl 10 mg suppository at bedtime, Pepcid 20 mg daily, Neurontin 300 mg at bedtime, Ativan 0.5 mg as needed, Reglan 5 mg p.o. q.i.d., Singulair 10 mg daily, daily multivitamin, Senokot 17.2 mg at bedtime, Zanaflex 2 mg b.i.d. and albuterol nebulizer.
[2017-07-07] MEDS ORDERED: GABA-113 PO (13:59)
[2017-07-09] MEDS ORDERED: CEPH500C2 PO (10:33)
== END 2017-06-10 13:55 | disposition home health service (06) | DRG 326 ==
LOC: C.ACU 08:40 → C.MSICU 11:44 → ENRESERV 12:21
PROVIDERS: ADMIT Surgery; ATTEND Surgery
PROC: 0DQ64ZZ Repair Stomach, Percutaneous Endoscopic Approach (ICD-10-PCS; principal; 2017-06-09 10:00)
PROC: 0DB64ZZ Excision of Stomach, Percutaneous Endoscopic Approach (ICD-10-PCS; principal; 2017-06-09 10:00)
DX: K94.29 Other complications of gastrostomy (principal); G82.50 Quadriplegia, unspecified; K63.2 Fistula of intestine; G37.3 Acute transverse myelitis in demyelinating disease of central nervous system; Z99.11 Dependence on respirator [ventilator] status

== ENCOUNTER 2017-07-08 07:11 | Inpatient (IN) | payer OTHER ==
--- NOTE | 2017-07-07 11:43 | History and Physical ---
History & Physical Date Jul 07, 2017. Chief Complaint tracheal stenosis History of Present Illness The patient is a 31 year old male with complaints of tight tracheostomy, bleeding from trach change Past Medical/Surgical History Medical Problems: (1) Acute transverse myelitis (2) Gastrocutaneous fistula (3) Quadriplegia (4) Ventilator dependent Additional History Hepatic Disease: No Endocrine Disorder: No Kidney Disease: No Hypertension: No Heart Disease: No Bleeding Tendencies: No Infectious Diseases: No Allergies Coded Allergies: No Known Allergies (Unverified , 06/09/17) Home Medications Scheduled Baclofen (Lioresal), 10 MG PO QID Bisacodyl (Bisac-Evac), 10 MG RE HS Famotidine (Pepcid), 20 MG PO QAM Gabapentin (Neurontin), 600 MG PO HS Gabapentin (Gabapentin), 1 CAP PO QDL Metoclopramide (Reglan), 5 MG PO QID Montelukast Sodium (Montelukast Sodium), 1 TAB PO HS Multivitamin (Multivitamin), 1 TAB PO QAM Senna (Senokot), 17.2 MG PO HS Tizanidine (Zanaflex), 2 MG PO BID [Albuterol Neb ], 1 DOSE INH UD Scheduled PRN Acetaminophen (Tylenol), 325 MG PO UD PRN for Pain Lorazepam (Ativan), 0.5 MG PO UD PRN for TRACH CHANGES Physical Examination Skin: warm/dry, no rash Eyes: normal inspection, EOMI, sclerae normal ENT: normal ENT inspection, pharynx normal Head: normocephalic, atraumatic Neck: supple, no adenopathy, trachea midline Respiratory/Chest: lungs clear, normal breath sounds, no respiratory distress Cardiovascular: regular rate, rhythm, no edema, no murmur Abdomen / GI: normal bowel sounds, non tender Back: normal inspection Extremities: normal inspection, normal range of motion Neurologic/Psych: no motor/sensory deficits, alert, normal reflexes, oriented x 3 Diagnosis traheostomy/tracheal stenosis Plan of Treatment bronchoscopy, trach change
[2017-07-07 14:08] VITALS: BMI 23.0
[~2017-07-08] VITALS: Ht 152.4 cm; Wt 59.0 kg
[~2017-07-08 07:11] MED LIST changes: -CEFAZOLIN 1000MG/55 ML D5W IV SCH; -HEPARIN SOD 5000 UNIT/0.5 ML CARP SQ SCH; -METO-157 PO
[2017-07-08 08:20] VITALS: Ht 152.4 cm; Wt 59.0 kg
[2017-07-08] MEDS ORDERED: PROPOFOL IV EMULSION 10 MG/ML 20 ML VIAL IV ONE (09:14)
[2017-07-08] MEDS ORDERED: ONDANSETRON INJ 2 MG/ML 2 ML VIAL ONE (09:14)
[2017-07-08] MEDS ORDERED: DEXAMETHASONE SOD INJ 4 MG/ML VIAL ONE ×2 (09:14→12:27)
[2017-07-08] MEDS ORDERED: LIDOCAINE HCL 2% 2 ML VIAL (20MG/ML) ONE (09:14)
[2017-07-08] MEDS ORDERED: EpHEDrine SULFATE INJ 50 MG/ML AMP ONE (09:14)
[2017-07-08] MEDS ORDERED: NEOSTIGMINE METHYLSULFATE 5 MG/5 ML SYR ONE (09:14)
[2017-07-08] MEDS ORDERED: FENTANYL CITRATE INJ 50 MCG/1 ML 2 ML VIAL ONE (09:14)
[2017-07-08] MEDS ORDERED: PHENYLEPHRINE HCL INJ 10 MG/ML VIAL ONE (09:14)
[2017-07-08] MEDS ORDERED: GLYCOPYRROLATE INJ 0.2 MG/ML VIAL ONE (09:14)
[2017-07-08] MEDS ORDERED: SUCCINYLCHOLINE CHLORIDE 20 MG/ML 10 ML VIAL IV ONE (09:14)
[2017-07-08] MEDS ORDERED: MIDAZOLAM HCL 1 MG/ML 2ML VIAL ONE (09:15)
[2017-07-08] MEDS ORDERED: LIDOCAINE HCL 2% LOCAL 50ML VIAL ONE (09:29)
[2017-07-08] MEDS ORDERED: LIDO 2%/EPINEPHRINE 1:100000 20 ML VIAL INFIL ONE (09:29)
--- NOTE | 2017-07-08 09:33 | History & Physical Bridge Note ---
H&P Re-Evaluation Bridge Note: I have examined the patient, reviewed the History & Physical and in the interval since the performance of the History & Physical I have noted the following changes of clinical significance: mother requesteded possible tracheostoma revisiom if there is stenosis, these consent changes noted
--- NOTE | 2017-07-08 12:09 | [facility] Operative Report ---
Operative Report Operative Date Jul 08, 2017. 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 Ashley Stallworth Helpdesk Manager Surgeon(s) None Estimated Blood Loss 30ml Findings Granulation tissue and thick scar causing tracheal stomal recurrence with the tracheostomy tube entering the right side wall of the trachea Specimens A. Granulation tissue of stoma Drains trach Anesthesia Gen. endotracheal Complication(s) None Disposition Surgical ICU Indications 31-year-old man with transverse myelitis status post tracheostomy for years ago. Patient was recently discharged from [facility] and has been receiving care at home with 24-hour nursing however the nurse has been unable to change the tracheostomy tube without bleeding. The patient and the mother both requested tracheal stomal revision. Description of Procedure The patient was brought to the operating room placed supine position the tracheostomy tube was left in place. Dr. Larson was able to use the bronchoscope to intubate the patient alongside the tracheostomy tube noting the trachea and the lane and mainstem bronchi to be free of lesions and the bronchoscope was withdrawn leaving the endotracheal tube in place. An exchange catheter was placed into the tracheostomy tube and the tracheostomy tube was removed. Granulation tissue immediately collapsed around the trachea stoma. 4 corner skin flaps were elevated superiorly inferiorly and laterally. The granulation tissue along with significant amount of scar tissue and also fatty tissue were removed with the 15 blade Metzenbaum scissors and the cutting Bovie bleeders were controlled using the Bovie. It was found that the tracheostomy tube entered into the right side wall of the trachea causing a significant amount of granulation tissue in the opening into the trachea. This granulation had to be removed to visualize the endotracheal tube. At this point the skin flaps were rotated and sewn in place attaching the skin flap to the superior and inferior borders of the tracheostomy opening and also sewing down the right and left lateral skin flaps to the tracheostomy opening. The right skin flap was sewn down to the false fistula that had been created from the side entry into the trachea. At this point the endotracheal tube was withdrawn and the tracheostomy tube which is a #6 Shiley was placed over the exchange catheter. With the tracheostomy tube in place 4 corner stay sutures were placed and the patient was taken to the recovery area in satisfactory condition after which he will be transferred to the ICU for observation overnight. I attest to the content of the Intraoperative Record and any orders documented therein. Any exceptions are noted below.
--- NOTE | 2017-07-08 12:44 | Anesthesiology Progress Note ---
Anesthesia Post Op Note Date & Time Jul 08, 2017 at 12:43 Vital Signs Pain Intensity: 0 Vital Signs Past 12 Hours Date Time Temp Pulse Resp B/P (MAP) Pulse Ox O2 Delivery O2 Flow Rate FiO2 07/08/17 12:30 36.6 77 19 125/78 95 Mechanical Ventilator 30 07/08/17 12:20 77 17 120/80 95 Mechanical Ventilator 30 07/08/17 12:10 90 22 141/91 94 Mechanical Ventilator 07/08/17 12:02 36.4 80 16 131/91 95 Mechanical Ventilator 30 07/08/17 10:33 30 Notes Mental Status: alert / awake / arousable, participated in evaluation Pt Amnestic to Procedure: Yes Nausea / Vomiting: adequately controlled Pain: adequately controlled Airway Patency, RR, SpO2: stable & adequate BP & HR: stable & adequate Hydration State: stable & adequate Anesthetic Complications: no major complications apparent Patient on home vent settings at 30%FiO2. His trach was revised and is a fresh tracheostomy and thus he will be observed overnight in ICU. Stay sutures are in place. I spoke with the ICU resident who has been in contact with the newswriter regarding the case.
[2017-07-08 13:00] VITALS: BP 109/75; PULSE 109; TEMP 36.7; O2SAT 95
[2017-07-08] MEDS ORDERED: ALBUTEROL 0.083% NEBU SOLN 3 ML VIAL INH PRN (14:00)
[2017-07-08] MEDS ORDERED: LORAZEPAM 0.5 MG TAB PO PRN (14:00)
[2017-07-08] MEDS ORDERED: ACETAMINOPHEN 325 MG TAB PO PRN (14:00)
--- NOTE | 2017-07-08 14:11 | Critical Care Consultation ---
Critical Care Consultation Date of Consultation: Jul 08, 2017. Attending Physician: Ashley Stallworth M.D. Reason for Consultation: s/p Tracheostomy change History of Present Illness Pt is a 31M with a PMHx of Transverse Myelitis 4 years ago p/w Tracheostomy change earlier today by Dr. Stallworth. Pt has no motor function below C4, but does have intact sensory function below C4. Pt can communicate and talk. Was a former [employer]. Pt is doing well after his trach change. At his baseline. Mom and Dad are at bedside. Pt had a trach placed in [facility] at the time of his diagnosis. There was some difficulty replacing the trach. Pt requested that his Sheepskin Rug be placed behind his head. Pt also requested a soft bed and not a regular bed. Pt requested to use his home suction because it's stronger than ours. Pt states that he is hungry. Pt reports that he would like an ankle protector because his left heel gives him pain - this is a chronic and known issue, Other than the above pt has no complaints. Discharge plans uncertain - Dr. Stallworth who I spoke with anticipates discharge on Tuesday or Tuesday. Pt requires a daily enema for bowel movements. ROS: No chest pain, no fevers, no chills, no nausea, no vomiting, no diarrhea, no dysuria, no rash. Social History Smoking Status: Never Smoker Drug Use: none Marital Status: single Housing Status: lives with family Occupation Status: disabled Allergies Coded Allergies: No Known Allergies (Verified , 07/08/17) Home Medications Scheduled Baclofen (Lioresal), 10 MG PO QID Bisacodyl (Bisac-Evac), 10 MG RE HS Cephalexin Monohydrate (Keflex), 500 MG PO TID Famotidine (Pepcid), 20 MG PO QAM Gabapentin (Neurontin), 600 MG PO HS Gabapentin (Neurontin), 300 MG PO NOON Montelukast Sodium (Montelukast Sodium), 10 MG PO HS Multivitamin (Multivitamin), 1 TAB PO QAM Senna (Senokot), 17.2 MG PO HS Tizanidine (Zanaflex), 2 MG PO BID [Albuterol Neb ], 1 DOSE INH UD Scheduled PRN Acetaminophen (Tylenol), 325 MG PO UD PRN for Pain Lorazepam (Ativan), 0.5 MG PO UD PRN for TRACH CHANGES Current Inpatient Medications Current Inpatient Medications Medications (Trade) Dose Ordered Sig/Jameson Route Start Time Stop Time Status Last Admin Dose Admin Lactated Ringer's 1,000 ml @ 15 mls/hr Q24H IV 07/08/17 06:00 07/09/17 05:59 Review of Systems Constitutional: No fever, No chills Abdomen: No pain, No nausea, No vomiting, No diarrhea, No constipation Physical Exam Date Time Temp Pulse Resp B/P (MAP) Pulse Ox O2 Delivery O2 Flow Rate FiO2 07/08/17 12:50 76 16 120/79 96 Mechanical Ventilator 30 07/08/17 12:40 76 16 118/77 95 Mechanical Ventilator 30 07/08/17 12:30 36.6 77 19 125/78 95 Mechanical Ventilator 30 07/08/17 12:20 77 17 120/80 95 Mechanical Ventilator 30 07/08/17 12:10 90 22 141/91 94 Mechanical Ventilator 30 07/08/17 12:02 36.4 80 16 131/91 95 Mechanical Ventilator 30 07/08/17 10:33 30 General Appearance: other (Quadriplegic, thin extremities, no apparent distress ) Eyes: PERRLA, EOMI, conjunctivae normal ENT: other (tracheostomy in place.) Respiratory: other (rhonchorous lung mason anteriorly, no respiratory distress , trachestomy sites attached to oxygen) Cardiovasular: regular rate/rhythm, normal S1S2, no M/G/R Abdomen: non tender, normal bowel sounds, no rebound, no masses, no guarding, no organomegaly Upper Extremities: edema, other (UE are contracted bilaterally, edematous fingers, pt has 0 motor function in arms bilaterally.) Lower Extremities: other (thin, skin is in good condition, pt has no motor function. ) Neuro: alert, oriented x 3, normal motor exam, normal memory, other (pt cannot ambulate) Psychiatric: normal affect Assessment & Plan 31M with a PMHx of Transverse Myelitis s/p trach replacement. Day #0. Neuro: * AAOx3 * Transverse Myelitis: * Will order HiFlo Air Soft Mattress. * Heel precautions. * for muscle spasms, c/w Baclofen 10 MG PO QID and Zanaflex 2 MG PO BID * Neuropathic Pain: Gabapentin 300mg @ noon and 600 at night daily. * Pain: Acetaminophen 325 MG PO Q6 PRN for Pain * Lorazepam (Ativan), 0.5 MG PO PRN for TRACH CHANGES CV - * No significant cardiac history. Resp - * S/p Tracheostomy * Trach site looks good. * Lungs are rhonchorous in all mason anteriorly * c/w Montekulast 1 TAB PO HS * Albuterol Nebulizer Q6H PRN for SOB/wheezing. Renal/ - * No recent lab work available. * Pt is eating and drinking well. GI/Diet - * Pt has no issues tolerating PO. * GI Proph: Pepcid 20 MG PO QAM * Nausea: c/w Reglan 5 MG PO QID * Regular Diet. * Chronic Constipation: Bisacodyl 10 MG RE HS, Senna 17.2 MG PO HS Endo - * No DM or Thyroid history. * No Lytes the EMR this admission Heme - * Baseline Hemoglobin between 11-13 last Admission in may. * No HgB at present. * DVT Proph: This is patient's normal status, no extra DVT Proph indicated - pt is quadriplegic - frequent repositioning to preserve skin care. ID - * Afebrile, not on empiric Abx, no WBC in chart this admission. Social - Lives at Home. Dispo Lives at Home, ICU until DC. Full Code Resident Physician Supervision Note: Dr. Rob was resident physician during care of patient. I separately evaluated patient and did history and exam. I discussed the case with the resident and generally agree with the findings and plan. Chronic ventilator dependent secondary to CT transverse myelitis. Tracheostomy revision today secondary to an granuloma performed by Dr. Stallworth. Discussed postoperative plans with Dr. Stallworth Documented By: Darius Crandall DO Resident Involvement: Resident Care Provided Care Provided: Adult Hospital Medicine
[2017-07-08 16:00] VITALS: BP 110/76; PULSE 79; TEMP 36.7; O2SAT 98
[2017-07-08] MEDS: BACLOFEN 10 MG TAB PO SCH ×2 (17:36→20:16)
[2017-07-08 18:00] VITALS: BP 91/67; PULSE 77; O2SAT 95
[2017-07-08 20:00] VITALS: BP 104/64; PULSE 82; TEMP 37.1; O2SAT 96
[2017-07-08] MEDS ORDERED: MONTELUKAST SOD 10 MG TAB PO SCH (21:00)
[2017-07-08] MEDS ORDERED: SENNA 8.6 MG TAB PO SCH (21:00)
[2017-07-08] MEDS ORDERED: BISACODYL 10 MG SUPP PR SCH (21:00)
[2017-07-08] MEDS ORDERED: GABAPENTIN 600 MG TAB PO SCH ×2 (21:00)
[2017-07-08 22:00] VITALS: BP 106/57; PULSE 92; O2SAT 94
[2017-07-08 23:59] VITALS: O2SAT 96
[2017-07-09] VITALS (23 sets, daily range): BP systolic 86–117; BP diastolic 56–75; PULSE 76–108; TEMP 36.6–36.9; O2SAT 91–96
[2017-07-09] MEDS: BACLOFEN 10 MG TAB PO SCH ×3 (07:41→16:25)
--- NOTE | 2017-07-09 08:15 | Critical Care Progress Note ---
Critical Care Progress Note Date of Service Jul 09, 2017. ICU Day ICU Day Number: [address] Crandall Subjective The patient was seen and examined at bedside. No acute overnight events. Patient is resting comfortably in bed. Denies having any pain. Eating and urinating well. Per patient and dad who is in the room he is at his clinical baseline. We are awaiting Dr. Stallworth's evaluation regarding the trach replacement. Plan of care was described to the patient and all questions were answered. ROS: No chest pain, no SOB, no dyspnea on exertion, no palpitations, no fevers, no chills, no nausea, no vomiting, no diarrhea, no dysuria, no rash. Objective General Appearance: other (Quadropalegic, thin extremities, no apparent distress. ) Eyes: PERRLA, EOMI, conjunctivae normal ENT: other (tracheostomy in place.) Cardiovasular: regular rate/rhythm, normal S1S2, no M/G/R Resp: Crackling in the lung mason anteriorly - improved from Previous day. Abdomen: non tender, normal bowel sounds, no rebound, no masses, no guarding, no organomegaly Upper Extremities: edema, other (UE are contracted bilaterally, edematous fingers, pt has 0 motor function in arms bilaterally.) Lower Extremities: other (thin, skin is in good condition, pt has no motor function. ) Neuro: alert, oriented x 3, normal motor exam, normal memory, other (pt cannot ambulate) Psychiatric: normal affect Current SOFA Score SOFA Score Response (Comments) Value Platelets (x10) > 150 0 Bilirubin (mg/dL) < 1.2 0 Hugo Coma Score 15 (quadriplegic) 0 Level of Hypotension No Hypotension 0 Creatinine (mg/dL) < 1.2 0 Total 0 Assessment & Plan 31M with a PMHx of Transverse Myelitis s/p trach replacement. Day #1. Pt is at his clinical baseline. Neuro: * AAOx3 * Transverse Myelitis: * Pt comfortable with current ICU mattress. * Pt brought in his own heel protectors. * for muscle spasms, c/w Baclofen 10 MG PO QID and Zanaflex 2 MG PO BID * Neuropatic Pain: Gabapentin 300mg @ noon and 600 at night daily. * Pain: Acetaminophen 325 MG PO Q6 PRN for Pain * Lorazepam (Ativan), 0.5 MG PO PRN for TRACH CHANGES CV - * No significant cardiac history. Resp - * S/p Tracheostomy * Trach site looks good. * Lungs are more clear than previous day. * c/w Montekulast 1 TAB PO HS * Albuterol Nebulizer Q6H PRN for SOB/wheezing. Renal/ - * No recent lab work available. * Pt is eating and drinking well. GI/Diet - * Pt has no issues tolerating PO. * GI Proph: Pepcid 20 MG PO QAM * Nausea: c/w Reglan 5 MG PO QID * Regular Diet. * Chronic Constipation: Bisacodyl 10 MG RE HS, Senna 17.2 MG PO HS Endo - * No DM or Thyroid history. * No Lytes the EMR this admission * DVT Proph: This is patient's normal status, no extra DVT Proph indicated - pt is quadriplegic - frequent repositioning to preserve skin care. Heme - * Baseline Hemoglobin between - last Admission in May. * No HgB at present. ID - * Afebrile, not on empiric Abx, no WBC in chart this admission. Social - Lives at Home. Dispo Lives at Home, likely DC today. Full Code Resident Physician Supervision Note: Dr. Rob was resident physician during care of patient. I separately evaluated patient and did history and exam. I discussed the case with the resident and generally agree with the findings and plan. Discharge home today Documented By: Darius Crandall DO Consults & Procedures Consultants: ENT - Dr. Stallworth Dermatologist - Dr. Crandall Procedures: Trach Replacement by Dr. Stallworth on 07/08/2017 Data Medications: Current Inpatient Medications Medications (Trade) Dose Ordered Sig/Jameson Route Start Time Stop Time Status Last Admin Dose Admin Acetaminophen (Tylenol Tab) 325 mg DAILY PRN PO 07/08/17 14:00 08/07/17 13:59 07/09/17 07:59 325 MG Baclofen (Lioresal Tab) 10 mg QID PO 07/08/17 17:00 08/07/17 16:59 07/09/17 07:41 10 MG Bisacodyl (Dulcolax Supp) 10 mg HS [place] 07/08/17 21:00 08/07/17 20:59 07/08/17 20:21 10 MG Famotidine (Pepcid Tab) 20 mg QAM PO 07/09/17 09:00 08/08/17 08:59 07/09/17 07:41 20 MG Gabapentin (Neurontin Tab) 600 mg HS PO 07/08/17 21:00 08/07/17 20:59 07/08/17 20:17 600 MG Lorazepam (Ativan Tab) 0.5 mg PRN PRN PO 07/08/17 14:00 08/07/17 13:59 Montelukast Sodium (Singulair Tab) 10 mg HS PO 07/08/17 21:00 08/07/17 20:59 07/08/17 20:18 10 MG Multivitamins (Multivitamin Tab) 1 tab QAM PO 07/09/17 09:00 08/08/17 08:59 07/09/17 07:41 1 TAB Senna (Senokot Tab) 17.2 mg HS PO 07/08/17 21:00 08/07/17 20:59 07/08/17 20:17 17.2 MG Tizanidine HCl (Zanaflex Tab) 2 mg BID PO 07/08/17 21:00 08/07/17 20:59 07/09/17 07:45 2 MG Albuterol Sulfate (Ventolin 0.083% 2.5MG/3ML Neb) 2.5 mg Q6R PRN INH 07/08/17 14:00 08/07/17 13:59 Gabapentin (Neurontin Tab) 600 mg DAILY@1200 PO 07/09/17 12:00 08/08/17 11:59 Vital Signs: Date Time Temp Pulse Resp B/P (MAP) Pulse Ox O2 Delivery O2 Flow Rate FiO2 07/09/17 06:00 36.9 83 18 111/70 (84) 96 Mechanical Ventilator 07/09/17 04:00 21 07/09/17 04:00 76 19 86/57 (67) 95 21 07/09/17 04:00 96 Mechanical Ventilator 21 07/09/17 03:00 82 17 97/65 (76) 93 21 07/09/17 02:17 30 07/09/17 02:00 85 18 86/66 (73) 96 21 07/09/17 00:00 36.7 84 16 93/59 (70) 95 21 07/08/17 23:59 21 07/08/17 23:59 96 Mechanical Ventilator 21 07/08/17 22:00 92 24 106/57 (73) 94 21 07/08/17 21:39 30 07/08/17 20:31 30 07/08/17 20:00 21 07/08/17 20:00 37.1 82 16 104/64 (77) 96 21 07/08/17 20:00 96 Mechanical Ventilator 21 07/08/17 18:00 77 19 91/67 (75) 95 40 07/08/17 16:00 40 07/08/17 16:00 36.7 79 19 110/76 (87) 98 40 07/08/17 16:00 98 Mechanical Ventilator 40 07/08/17 14:05 30 07/08/17 13:00 36.7 109 16 109/75 (86) 95 Mechanical Ventilator 30 07/08/17 12:50 76 16 120/79 96 Mechanical Ventilator 30 07/08/17 12:40 76 16 118/77 95 Mechanical Ventilator 30 07/08/17 12:30 36.6 77 19 125/78 95 Mechanical Ventilator 30 07/08/17 12:20 77 17 120/80 95 Mechanical Ventilator 30 07/08/17 12:10 90 22 141/91 94 Mechanical Ventilator 30 07/08/17 12:02 36.4 80 16 131/91 95 Mechanical Ventilator 30 07/08/17 10:33 30 Resident Involvement: Resident Care Provided Care Provided: Adult Hospital Medicine
[2017-07-09] MEDS ORDERED: MULTIVITAMIN TAB PO SCH (09:00)
[2017-07-09] MEDS ORDERED: FAMOTIDINE 20 MG TAB PO SCH (09:00)
[2017-07-09] MEDS ORDERED: ACETAMINOPHEN 325 MG TAB PO PRN (10:30)
[2017-07-09] MEDS ORDERED: CEPH500C2 PO (10:33)
--- NOTE | 2017-07-09 10:36 | Discharge Instructions ---
Discharge Instructions Date of Service Jul 09, 2017. 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 Instructions / Follow-Up Instructions / Follow-Up schedule for remove of sutures and trach change in [facility] in 3 weeks. Resume continuous nursing care, trach care at home Current Hospital Diet Patient's current hospital diet: Regular Diet Discharge Diet Recommended Diet: Regular Diet Procedures Procedures Performed: Bronchoscopy, Trachostomy Change, Tracheal Stoma Revision Pending Studies Studies pending at discharge: no Medical Emergencies . Who to Call and When: Medical Emergencies: If at any time you feel your situation is an emergency, please call 911 immediately. . Non-Emergent Contact Non-Emergency issues call your: Primary Care Provider . "Provider Documentation" section prepared by Ashley Stallworth. . VTE Core Measure Inpt VTE Proph given/why not?: SCD's [place] Drug Monitoring Program Search Results: no issues identified
--- NOTE | 2017-07-09 10:51 | DISCHARGE SUMMARY ---
ADMITTING DIAGNOSIS: Tracheal stenosis. DISCHARGE DIAGNOSIS: Tracheostomal stenosis. PROCEDURE: Tracheostomal flap revision with flap reconstruction and bronchoscopy. HISTORY OF PRESENT ILLNESS: A 31-year-old gentleman with transverse myelitis 4 years ago, was in a skilled care facility and [facility] until recently. The trach nurse for home care was unable to change the tracheostomy tube due to stenosis. The patient was therefore admitted for solution of the inability to change the trach. On examination, he is a paraplegic with trach in place, on a permanent ventilator. He has contractures, has a Jade, has a trach in place and has recently had a closure of gastrostomy feeding tube. HOSPITAL COURSE: The patient was taken to operating room on July 08, where the patient was intubated by Dr. Pack. By fiberoptic bronchoscopy, he was able to put the endotracheal tube alongside the tracheostomy tube, after which the tracheostomy tube was removed and there was copious amount of granulation tissue and stenosis of the tracheostoma. Therefore, flap revision of the tracheostoma was performed with 4 corner flaps. The stay sutures were placed and the corner sutures were placed. Postoperatively, the patient was observed in the intensive care unit overnight. He did require packing of Surgicel around the tracheostomy tube for discomfort and had no further problems. The following morning, the patient did well. The Surgicel packing was removed and the patient was discharged to home nursing care with the parents and instructed to return to the ambulatory surgery unit for removal of sutures in 3 weeks, which will be arranged through my office.
[2017-07-09] MEDS ORDERED: GABAPENTIN 600 MG TAB PO SCH (12:00)
[2017-07-09] MEDS ORDERED: NURSING VERBAL MED ORDER ONE (13:45)
[2017-07-09] MEDS: HYDROCODONE/ACETAMOPHEN 5/325MG TAB PO PRN ×2 (14:09→18:25)
== END 2017-07-09 20:14 | disposition home or self-care (01) | DRG 166 ==
LOC: C.ACU 07:11 → ENRESERV 12:24 → C.MSICU 13:14
PROVIDERS: ADMIT Otolaryngology; ATTEND Otolaryngology
PROC: 0BW10FZ Revision of Tracheostomy Device in Trachea, Open Approach (ICD-10-PCS; principal; 2017-07-08 09:15)
DX: J95.03 Malfunction of tracheostomy stoma (principal); G82.50 Quadriplegia, unspecified; G37.3 Acute transverse myelitis in demyelinating disease of central nervous system; K63.2 Fistula of intestine; Z99.11 Dependence on respirator [ventilator] status

== ENCOUNTER → 2017-08-17 | Outpatient (CLI) | payer OTHER ==
[~2017-08-17] MED LIST changes: +CEPH500C2 PO; -GABA1CAP4 PO; -LACTATED RINGER'S 1000ML 1,000 ML IV SCH
== END | disposition home or self-care (01) ==
LOC: C.LABSPEC 12:03
PROVIDERS: ATTEND Nurse Practitioner Family
DX: R50.9 Fever, unspecified (principal); J96.10 Chronic respiratory failure, unspecified whether with hypoxia or hypercapnia; G61.81 Chronic inflammatory demyelinating polyneuritis; G82.50 Quadriplegia, unspecified; N31.8 Other neuromuscular dysfunction of bladder; R33.8 Other retention of urine; Z92.89 Personal history of other medical treatment

== ENCOUNTER → 2017-09-14 | Outpatient (CLI) | payer OTHER | END | disposition home or self-care (01) | LOC: C.LABSPEC 11:17 | PROVIDERS: ATTEND Nurse Practitioner Family | DX: N39.0 Urinary tract infection, site not specified (principal) ==

== ENCOUNTER → 2017-10-04 | Outpatient (CLI) | payer OTHER | END | disposition home or self-care (01) | LOC: C.LABSPEC 15:24 | PROVIDERS: ATTEND Nurse Practitioner Family | DX: N39.0 Urinary tract infection, site not specified (principal) ==

== ENCOUNTER 2023-06-29 22:56 | Inpatient (IN) ==
[2023-06-29] MEDS ORDERED: ACETAMINOPHEN 1,000 MG/100 ML VIAL IV STA (23:08)
[2023-06-29] MEDS ORDERED: PIPERACILLIN/TAZOBACTAM 4.5 GM/100 ML BAG IV ONE (23:10)
[2023-06-29] MEDS ORDERED: SODIUM CHLORIDE 0.9% 1,000 ML IV SCH (23:15)
[2023-06-29 23:57] LABS: Base Excess VBG -4.3 mEq/L; HCO3 VBG 18 mmol/L; Oxygen Saturation VBG 94.7 %; PCO2 VBG 25 mmHg (38-50); PO2 VBG 65 mmHg; pH VBG 7.46 (7.36-7.41)
[2023-06-30] LABS: Appearance Urine Clear (Clear); Bilirubin Urine Negative (Negative); Blood Urine 3+ (Negative); Color Urine Yellow; Glucose Urine UA Negative (Negative); Ketones Urine Negative (Negative); Leukocyte Esterase Urine 2+ (Negative); Nitrite Urine Negative (Negative); Protein Urine Negative (Negative); Specific Gravity Urine 1.003 (1.000-1.030); Urobilinogen Urine Negative (Negative)
[2023-06-30 00:02] LABS: Hematocrit (blood only) 37.8 % (42.0-52.0); Hemoglobin 13.1 g/dl (14.0-18.0); Mean Corpuscular Hemoglobin 30.4 pg (25.0-34.0); Mean Corpuscular Hgb Conc 34.7 g/dL (32.0-36.0); Mean Corpuscular Volume 87.7 fL (80.0-100.0); Mean Platelet Volume 11.2 fL (9.4-12.4); Platelet Count 173 K/uL (130-400); RDW Coefficient of Variation 15.9 % (11.5-14.5); RDW Standard Deviation 50.9 fL (36.4-46.3); Red Blood Count 4.31 M/uL (4.70-6.10); White Blood Count 12.99 K/ul (4.8-10.8)
[2023-06-30 00:24] LABS: Albumin Level 4.2 gm/dl (3.4-5.0); BUN Creatinine Ratio 16.9 (10-20); Bilirubin Direct 0.2 mg/dl (0-0.2); Calcium 9.1 mg/dl (8.6-10.3); Creatinine Clr Calc Pharmacy 110.6 ml/min; Est GFR (Non-African American) 118.2 ml/min; Potassium 3.6 mmol/L (3.5-5.1); Total Protein 7.6 gm/dl (6.0-8.3)
[2023-06-30 00:33] LABS: Basophils # (auto) 0.02 K/uL (0.00-0.20); Basophils % (auto) 0.2 %; Immature Granulocytes # (auto) 0.07 K/uL (0.01-0.20); Immature Granulocytes % (auto) 0.5 %; Lymphocytes # (auto) 0.53 K/uL (1.20-3.40); Lymphocytes % (auto) 4.1 %; Monocytes % (auto) 3.8 %; Neutrophils # (auto) 11.87 K/uL (1.40-6.50); Neutrophils % (auto) 91.4 %
[2023-06-30 00:37] LABS: Epithelial Cell Urine 0-5 /lpf (0-5)
[2023-06-30 00:38] LABS: RBC Urine 0-4 /hpf (0-4)
[2023-06-30 00:39] LABS: Bacteria Urine 1+ (Negative)
[2023-06-30] MEDS ORDERED: SODIUM CHLORIDE 0.9% 1,000 ML IV SCH (00:45)
[2023-06-30 01:05] LABS: Adenovirus PCR Not Detected (NotDetected); Bordetella parapertussis PCR Not Detected (NotDetected); Bordetella pertussis PCR Not Detected (NotDetected); Chlamydia pneumoniae PCR Not Detected (NotDetected); Coronavirus 229E PCR Not Detected (NotDetected); Coronavirus CoV-2 (COVID19)PCR Not Detected (NotDetected); Coronavirus HKU1 PCR Not Detected (NotDetected); Coronavirus NL63 PCR Not Detected (NotDetected); Coronavirus OC43PCR Not Detected (NotDetected); Human Metapneumovirus PCR Not Detected (NotDetected); Influenza A PCR Not Detected (NotDetected); Influenza B PCR Not Detected (NotDetected); Mycoplasma pneumoniae PCR Not Detected (NotDetected); Parainfluenza Virus 1 PCR Not Detected (NotDetected); Parainfluenza Virus 2 PCR Not Detected (NotDetected); Parainfluenza Virus 3 PCR Not Detected (NotDetected); Parainfluenza Virus 4 PCR Not Detected (NotDetected); Respiratory Syncytial VirusPCR Not Detected (NotDetected); Rhinovirus/Enterovirus PCR Not Detected (NotDetected)
[2023-06-30 01:14] LABS: Troponin I High Sensitivity 6.9 pg/ml (0-20)
--- NOTE | 2023-06-30 03:48 | History & Physical Report ---
Date of Service June 30, 2023 Assessment & Plan (1) Sepsis: Plan: Patient is a 37-year-old male with a past medical history of transverse myelitis with ventilator dependence with tracheostomy who comes to the hospital for evaluation of fever. Suspect patient has urinary tract infection secondary to Jade catheter. For this reason, patient be admitted for treatment. -Admit to telemetry but placed in ICU given home ventilator dependence with tracheostomy -SIRS criteria with tachycardia, elevated white blood cell count, fever, and respirations equal to 20 on admission -Suspect source is urinary given positive urinalysis. -Suspect this is actually a cystitis and patient chronically has soft blood pressure, tachycardia -Given higher risk for unusual bacteria given chronic Jade catheter, cover with Zosyn for now every 8 hour -Urine cultures taken, follow culture results -Blood cultures taken, pending -Sputum cultures from trach ordered. Patient has not had increased sputum or dyspnea/increased ventilator requirements -Status post 2 L of crystalloid fluid which is adequate per sepsis protocol (2) UTI (urinary tract infection): Plan: -Treatment as above -Zosyn for now and tailor antibiotics as results return (3) Ventilator dependence: Plan: -May use own home ventilator -PCU/telemetry status in ICU for nursing care -Acetylcysteine inhalation every 6 hours as needed for secretions -Suction PRN Home Settings: Mode: Assist Control Rate: 16 bpm PEEP: 5 cm/H2O Tidal Volume: 500 Inspiratory time: 1.0 sec (4) Transverse myelitis: Plan: - Chronic condition resulting in paraplegia, ventilator dependence -Treatment of secondary conditions below (5) Quadriplegia: Plan: -Aspiration precautions, ulcer precautions, no dietary restrictions -HOB at 30-45 degrees -Frequent repositioning -Continue Jade catheter care -Spasm management with Tylenol, baclofen, doxepin, gabapentin, tizanidine (6) Neurogenic bowel: Plan: - Continue home bowel regimen (7) Neuromuscular dysfunction of bladder: Plan: - Continue Jade catheter management (8) GERD without esophagitis: Plan: -Continue Pepcid (9) Anxiety disorder: (10) Legal blindness: (11) Indwelling Jade catheter present: Plan Disposition: Admit to PCU/telemetry but placed in ICU for vent management DVT prophylaxis: Lovenox Diet: Regular with aspiration precautions CODE STATUS: Full code History of Present Illness Chief Complaint: Fever Primary Care Provider: Suzanna Eatonroxanna Patient is a 37-year-old male with a past medical history of transverse myelitis with ventilator dependence with tracheostomy who comes to the hospital for evaluation of fever. Patient has a chronic indwelling Jade catheter. It seems that his home nurse went to change his Jade catheter today and there was a small amount of hematuria. This seemed to have occurred around 4 PM on 06/29/23. Earlier in the day he also had a fever as started in the low 100s Fahrenheit and went as high as 102.9 F. The nurse and the patient's parents applied cold compresses which did bring his fever down. Because of this fever and the hematuria, he came to the hospital for further evaluation via ambulance. Patient is a quadriplegic secondary to transverse myelitis. He denies any abdominal discomfort, penile pain, or nausea/vomiting. He occasionally gets pain in his arms and legs but has had none today. Denies feeling short of breath. Bowel movements have been normal. Output has been normal as well. No episodes of aspiration per patient and family/nurse. All medications have been taken appropriately per nurse. Since the replacement of the Jade catheter, the patient has not had any hematuria. Hematuria has not been witnessed in this hospital as of yet. Otherwise no other complaints at this time. ED course: Patient evaluated by provider in room. Labs are significant for a mildly elevated white blood cell count of 13, VBG with a pH of 7.46, sodium of 132, procalcitonin of 0.94, urinalysis 3+ positive for blood, 2+ positive for leukocyte esterase, and positive for white blood cells/urine bacteria. Respiratory BioFire negative. X-ray showing no focal consolidation suggestive of pneumonia. Urine culture has been taken. Patient was given 2 boluses total of normal saline. Patient was started on Zosyn in the ED. Given that the patient's vitals and labs are suggestive of sepsis given a urinary source, the hospitalist service was consulted for admission and further treatment. Allergies Allergy/AdvReac Type Severity Reaction Status Date / Time acetaminophen [From Fioricet] Allergy Severe Redness of Verified 06/30/23 08:09 Skin butalbital [From Fioricet] Allergy Severe Redness of Verified 06/30/23 08:09 Skin caffeine [From Fioricet] Allergy Severe Redness of Verified 06/30/23 08:09 Skin FLORICET Allergy Unknown unknown Uncoded 06/30/23 08:09 Home Medications Medication Instructions Recorded Confirmed Type Oxygen Home #1 ea 07/20/19 05/10/23 History acetaminophen 500 mg capsule 500 mg PO Q6H PRN 07/20/19 05/10/23 History magnesium 400 mg PO DAILY 07/20/19 05/10/23 History montelukast 10 mg tablet 10 mg PO DAILY 12/14/21 05/10/23 History minocycline 50 mg capsule 50 mg PO DAILY 03/23/22 05/10/23 History triamcinolone acetonide 0.1 % 1 applic topical Q OTHER DAY 03/23/22 05/10/23 History topical ointment doxepin 75 mg capsule 75 mg PO DAILY #30 caps 01/04/23 05/10/23 Rx famotidine 20 mg tablet 20 mg PO DAILY 01/31/23 05/10/23 History metoclopramide HCl 5 mg tablet 5 mg PO DAILY 01/31/23 03/15/23 History tizanidine 2 mg tablet 2 mg PO .COMPLEX muscle spasticity 02/28/23 05/10/23 Rx 90 days #180 tabs ipratropium 0.5 mg-albuterol 3 mg 3 ml inhalation BID shortness of 03/15/23 05/10/23 Rx (2.5 mg base)/3 mL nebulization breath or wheezing #360 mL soln baclofen 20 mg tablet See Rx Instructions .Route 03/28/23 05/10/23 Rx .COMPLEX #360 tabs gabapentin 600 mg tablet 600 mg PO .COMPLEX 90 days #270 05/10/23 05/10/23 Rx tabs lorazepam 2 mg tablet 2 mg PO 05/10/23 05/10/23 History lorazepam 4 mg/mL injection 4 mg IV BID PRN 05/10/23 05/10/23 History solution (Ativan) olopatadine 0.1 % eye drops drp ophthalmic (eye) 05/10/23 05/10/23 History albuterol sulfate 0.63 mg/3 mL 0.63 mg (3 mL) inhalation BID #180 05/27/23 Rx solution for nebulization mL ipratropium bromide 0.02 % 2.5 ml inhalation BID PRN 05/27/23 Rx solution for inhalation shortness of breath or wheezing #150 mL acetaminophen 325 mg tablet 650 mg PO Q4 PRN Mild Pain (Scale 06/30/23 06/30/23 History (Tylenol) Score 1-4) acetaminophen 325 mg tablet 650 mg PO Q4 PRN temp>101 f 06/30/23 06/30/23 History (Tylenol) acetaminophen 500 mg tablet 1,000 mg PO Q8 PRN temp > 101 06/30/23 06/30/23 History (Tylenol Extra Strength) acetylcysteine 200 mg/mL (20 %) 2 ml inhalation Q6 PRN Secretions 06/30/23 06/30/23 History solution baclofen 20 mg tablet 20 mg PO QID 06/30/23 06/30/23 History bisacodyl 10 mg rectal suppository 10 mg OR DAILY 06/30/23 06/30/23 History clobetasol 0.05 % shampoo 1 applic topical Q OTHER DAY 06/30/23 06/30/23 History doxepin 75 mg capsule 75 mg PO DAILY 06/30/23 06/30/23 History famotidine 20 mg tablet 20 mg PO DAILY 06/30/23 06/30/23 History gabapentin 600 mg tablet 1,200 mg PO QPM 06/30/23 06/30/23 History gabapentin 600 mg tablet 600 mg PO QAM 06/30/23 06/30/23 History ipratropium 0.5 mg-albuterol 3 mg 3 ml inhalation BID 06/30/23 06/30/23 History (2.5 mg base)/3 mL nebulization soln ipratropium 0.5 mg-albuterol 3 mg 3 ml inhalation Q4 PRN 06/30/23 06/30/23 History (2.5 mg base)/3 mL nebulization SOB,wheezing or increased soln secretions lorazepam 2 mg tablet 4 mg PO UD 06/30/23 06/30/23 History magnesium hydroxide 400 mg/5 mL 30 ml PO .EVERY 3 DAYS PRN 06/30/23 06/30/23 History oral suspension (Milk of Magnesia) Constipation magnesium oxide 400 mg PO HS 06/30/23 06/30/23 History melatonin 10 mg tablet 10 mg PO HS PRN Insomnia 06/30/23 06/30/23 History minocycline 50 mg capsule 50 mg PO DAILY 06/30/23 06/30/23 History montelukast 10 mg tablet 10 mg PO HS 06/30/23 06/30/23 History multivitamin 1 tab PO DAILY 06/30/23 06/30/23 History olopatadine 0.2 % eye drops 1 drp OPB DAILY 06/30/23 06/30/23 History sennosides 8.6 mg tablet (Senna 8.6 mg PO BID PRN Constipation 06/30/23 06/30/23 History Laxative) sodium chloride 7 % for 1 inh inhalation BID PRN increased 06/30/23 06/30/23 History nebulization or thickened secretions sodium phosphates 19 gram-7 118 ml OR Q OTHER DAY PRN 06/30/23 06/30/23 History gram/118 mL enema (Fleet Enema) Constipation tizanidine 2 mg capsule 1 mg PO BID 06/30/23 06/30/23 History tizanidine 2 mg capsule 2 mg PO HS 06/30/23 06/30/23 History triamcinolone acetonide 0.1 % 1 applic topical Q OTHER DAY 06/30/23 06/30/23 History lotion triamcinolone acetonide 0.1 % 1 applic topical BID PRN open 06/30/23 06/30/23 History topical ointment areas bilateral buttocks Past Med/Surg History Medical History Fatigue 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 Gastrostomy tube in place Myelitis Neuralgia Pressure ulcer of right buttock, stage [address] Surgical History (System 06/30/23 @ 08:09 by Mayuri De) S/P eye surgery S/P nasal septoplasty S/P partial gastrectomy Family History Grandmother Cardiac disorder Type 2 diabetes mellitus Mother Type 2 diabetes mellitus Father Hypertension Social History (System 06/30/23 @ 08:09 by Mayuri De) Smoking Status: Never smoker Do You Dip or Chew Tobacco: No; Hx Alcohol Use: No Hx Substance Use: No Preferred Language: Malian Communication Ability: Effective Minute Clerk For Basic Traffic Required: No Beliefs That Will Affect Care: None Current Living Situation: Parent Current Living Situation Comment: lives with parents and 24 hour caregivers Feels Safe at Home: Yes Safety Concerns: Feels Safe At This Time Assistive Devices: Mechanical Lift, Oxygen - Continuous and Wheelchair Review of Systems Review of Systems: All systems reviewed & are unremarkable except as noted in HPI & below Physical Exam Constitutional: well nourished, cooperative and comfortable Eyes: + anicteric sclerae Neck: trachea midline Tracheostomy in place with ventilator Respiratory: Auscultation: lungs clear to auscultation bilaterally Cardiovascular: RRR, no murmur, no edema Gastrointestinal (Abdomen): normal bowel sounds, soft, nontender, no hepatosplenomegaly Musculoskeletal: Head/Neck/Chest: normocephalic and head atraumatic Skin: no rashes, warm and dry There is a 2 cm in circumference stage II ulcer on the left glute that is dry and clean without drainage. Covered in a bandage. Neurologic: awake Psychiatric: A+Ox3, euthymic affect Genitourinary: Jade catheter in place. Results & Data Results & Data Vital Signs (Past 12 Hours) Vital Signs Temp Pulse Pulse Resp BP Pulse Ox O2 Del Method 06/30/23 03:01 80 20 92/65 L 97 06/30/23 01:08 96 Mechanical Vent 06/30/23 01:01 95 H 95/56 L 96 Mechanical Vent 06/29/23 23:01 37.7 C H 116 H 20 95 T-Piece, Trach Collar Code Status & VTE Plan VTE Prophylaxis Plan VTE Prophylaxis will be ordered: Yes Supervising Physician Co-Signing Physician Notes Patient seen and examined, chart reviewed, case discussed with Dr. Jo and I agree with the assessment and plan as above,
--- NOTE | 2023-06-30 03:59 | Emergency Department Note ---
History of Present Illness General Chief complaint: Fever Stated complaint: flu like illness Time Seen by Provider: 06/29/23 22:59 History of Present Illness Maximum Pain Intensity: 2 This is a 37-year-old male presenting to the emergency department via EMS from home for evaluation of fever and flulike symptoms. Patient has extensive medical history including paraplegia, transverse myelitis, tracheostomy tube, and chronic indwelling Jade catheter. The patient lives at home with his parents, but does have 24/ home nursing. Patient's nurse is at bedside, and she states that yesterday the patient had hematuria in the Jade. They did irrigate the Jade, and had to replace the catheter earlier today. They did get blood clots from the Jade, and it seems to be draining well since the replacement. The patient began with a fever of 102.9 this evening, and was given some Tylenol. Patient does not have any additional complaints himself. He rates his current discomfort a 2/10. Of note, on arrival to the ER patient was registered under a new MRN. He does have an existing MRN, which is [id number]. Records will be merged in the morning. Home Medications Medication Instructions Recorded Confirmed Type acetaminophen 325 mg tablet 650 mg PO Q4 PRN Mild Pain (Scale 06/30/23 06/30/23 History (Tylenol) Score 1-4) acetaminophen 325 mg tablet 650 mg PO Q4 PRN temp>101 f 06/30/23 06/30/23 History (Tylenol) acetaminophen 500 mg tablet 1,000 mg PO Q8 PRN temp > 101 06/30/23 06/30/23 History (Tylenol Extra Strength) acetylcysteine 200 mg/mL (20 %) 2 ml inhalation Q6 PRN Secretions 06/30/23 06/30/23 History solution baclofen 20 mg tablet 20 mg PO QID 06/30/23 06/30/23 History bisacodyl 10 mg rectal suppository 10 mg AR DAILY 06/30/23 06/30/23 History clobetasol 0.05 % shampoo 1 applic topical Q OTHER DAY 06/30/23 06/30/23 History doxepin 75 mg capsule 75 mg PO DAILY 06/30/23 06/30/23 History famotidine 20 mg tablet 20 mg PO DAILY 06/30/23 06/30/23 History gabapentin 600 mg tablet 1,200 mg PO QPM 06/30/23 06/30/23 History gabapentin 600 mg tablet 600 mg PO QAM 06/30/23 06/30/23 History ipratropium 0.5 mg-albuterol 3 mg 3 ml inhalation BID 06/30/23 06/30/23 History (2.5 mg base)/3 mL nebulization soln ipratropium 0.5 mg-albuterol 3 mg 3 ml inhalation Q4 PRN 06/30/23 06/30/23 History (2.5 mg base)/3 mL nebulization SOB,wheezing or increased soln secretions lorazepam 2 mg tablet 4 mg PO UD 06/30/23 06/30/23 History magnesium hydroxide 400 mg/5 mL 30 ml PO .EVERY 3 DAYS PRN 06/30/23 06/30/23 History oral suspension (Milk of Magnesia) Constipation magnesium oxide 400 mg PO HS 06/30/23 06/30/23 History melatonin 10 mg tablet 10 mg PO HS PRN Insomnia 06/30/23 06/30/23 History minocycline 50 mg capsule 50 mg PO DAILY 06/30/23 06/30/23 History montelukast 10 mg tablet 10 mg PO HS 06/30/23 06/30/23 History multivitamin 1 tab PO DAILY 06/30/23 06/30/23 History olopatadine 0.2 % eye drops 1 drp OPB DAILY 06/30/23 06/30/23 History sennosides 8.6 mg tablet (Senna 8.6 mg PO BID PRN Constipation 06/30/23 06/30/23 History Laxative) sodium chloride 7 % for 1 inh inhalation BID PRN increased 06/30/23 06/30/23 History nebulization or thickened secretions sodium phosphates 19 gram-7 118 ml AR Q OTHER DAY PRN 06/30/23 06/30/23 History gram/118 mL enema (Fleet Enema) Constipation tizanidine 2 mg capsule 1 mg PO BID 06/30/23 06/30/23 History tizanidine 2 mg capsule 2 mg PO HS 06/30/23 06/30/23 History triamcinolone acetonide 0.1 % 1 applic topical Q OTHER DAY 06/30/23 06/30/23 History lotion triamcinolone acetonide 0.1 % 1 applic topical BID PRN open 06/30/23 06/30/23 History topical ointment areas bilateral buttocks Allergies Allergy/AdvReac Type Severity Reaction Status Date / Time acetaminophen [From Fioricet] Allergy Severe Redness of Verified 06/30/23 01:58 Skin butalbital [From Fioricet] Allergy Severe Redness of Verified 06/30/23 01:58 Skin caffeine [From Fioricet] Allergy Severe Redness of Verified 06/30/23 01:58 Skin Past Med/Surg History Social History Smoking Status: Never smoker Preferred Language: Belarusian Feels Safe at Home: Yes Review of Systems A total of 10 systems reviewed and were otherwise negative Physical Exam Vital Signs Vital Signs - 24 hr 06/29/23 23:01 06/30/23 01:01 06/30/23 01:08 Temperature 37.7 C H Temperature Source Oral Pulse Rate 116 H Pulse Rate [Finger] 95 H Pulse Rhythm [Finger] Pulse Strength [Finger] Respiratory Rate 20 Respiratory Effort / Characteristics Non-Labored Respiratory Depth Normal Respiratory Pattern Regular Blood Pressure [Left Arm] 95/56 L Blood Pressure Mean [Left Arm] 69 Pulse Oximetry 95 96 96 Oxygen Delivery Method T-Piece Trach Collar Mechanical Vent Mechanical Vent Sepsis Recent Fever Within 48 Hours Yes Sepsis New/Unexplained Change in Mental Status No Sepsis Action Taken by Nursing No Action Required 06/30/23 03:01 Temperature Temperature Source Pulse Rate Pulse Rate [Finger] 80 Pulse Rhythm [Finger] Regular Pulse Strength [Finger] Normal Respiratory Rate 20 Respiratory Effort / Characteristics Non-Labored Spontaneous Respiratory Depth Normal Respiratory Pattern Blood Pressure [Left Arm] 92/65 L Blood Pressure Mean [Left Arm] 74 Pulse Oximetry 97 Oxygen Delivery Method Sepsis Recent Fever Within 48 Hours Sepsis New/Unexplained Change in Mental Status Sepsis Action Taken by Nursing VITALS: Vitals are noted on the nurse's note and reviewed by myself. Vital signs with tachycardia and low-grade fever. GENERAL: White male who appears slightly diaphoretic and in his chronic state of health. HEAD: Normocephalic atraumatic. MOUTH: Mucous membranes moist. NECK: Supple without nuchal rigidity. Tracheostomy tube appears appropriately placed and working. HEART: Regular rate and rhythm without murmurs gallops or rubs. LUNGS: Mild diffuse wheezing ABDOMEN: Positive normal bowel sounds x 4. Soft, nontender, without masses or organomegaly. No guarding or rebound tenderness. MUSCULOSKELETAL: No muscle atrophy, erythema, or edema noted NEURO: Patient was alert and oriented to person place and time. Course Administered Medications Discontinued Medications Sodium Chloride (Nss) 1,000 mls @ 999 mls/hr IV .Q1H1M OLIVERIO Stop: 06/30/23 00:15 Last Infusion: 06/30/23 01:18 Dose: 0 mls/hr Documented By: Admin: 06/29/23 23:59 Dose: 999 mls/hr Documented By: ACC Acetaminophen (Ofirmev) 1,000 mg in 100 mls @ 400 mls/hr IV NOW STA Stop: 06/29/23 23:22 Last Infusion: 06/30/23 01:17 Dose: 0 mls/hr Documented By: Admin: 06/29/23 23:51 Dose: 400 mls/hr Documented By: ACC Piperacillin Sod/Tazobactam Sod (Zosyn) 4.5 gm in 100 mls @ 200 mls/hr IV NOW ONE Stop: 06/29/23 23:39 Last Infusion: 06/30/23 01:17 Dose: 0 mls/hr Documented By: Admin: 06/29/23 23:51 Dose: 200 mls/hr Documented By: ACC Sodium Chloride (Nss) 1,000 mls @ 999 mls/hr IV .Q1H1M OLIVERIO Stop: 06/30/23 01:45 Last Admin: 06/30/23 01:45 Dose: 999 mls/hr Documented By: ACC Medical Decision Making Differential Diagnosis Differential diagnosis: Etiologies such as viral syndrome, otitis, pharyngitis, pneumonia, influenza, meningitis, urinary tract infection, septic arthritis, soft tissue infectious process, intra-abdominal process, sepsis, bacteremia, as well as others were entertained. Laboratory Data 06/29/23 23:35 06/29/23 23:35 Lab Results 06/29/23 06/29/23 06/29/23 Range/Units 23:20 23:30 23:35 WBC 12.99 H (4.8-10.8) K/ul RBC 4.31 L (4.70-6.10) M/uL Hgb 13.1 L (14.0-18.0) g/dl Hct 37.8 L (42.0-52.0) % MCV 87.7 (80.0-100.0) fL MCH 30.4 (25.0-34.0) pg MCHC 34.7 (32.0-36.0) g/dL RDW Std Deviation 50.9 H (36.4-46.3) fL RDW Coeff of Denisa 15.9 H (11.5-14.5) % Plt Count 173 (130-400) K/uL MPV 11.2 (9.4-12.4) fL Immature Gran % (Auto) 0.5 % Neut % (Auto) 91.4 % Lymph % (Auto) 4.1 % [place] % (Auto) 3.8 % Eos % (Auto) 0.0 % Baso % (Auto) 0.2 % Neut # (Auto) 11.87 H (1.40-6.50) K/uL Lymph # (Auto) 0.53 L (1.20-3.40) K/uL [place] # (Auto) 0.50 (0.11-0.59) K/uL Eos # (Auto) 0.00 (0.00-0.50) K/uL Baso # (Auto) 0.02 (0.00-0.20) K/uL Immature Gran # (Auto) 0.07 (0.01-0.20) K/uL VBG pH (7.36-7.41) VBG pCO2 (38-50) mmHg VBG pO2 mmHg VBG HCO3 mmol/L VBG O2 Saturation % VBG Base Excess mEq/L Sodium (136-145) mmol/L Potassium (3.5-5.1) mmol/L Chloride (98-107) mmol/L Carbon Dioxide (21-32) mmol/L Anion Gap (3-11) BUN (6-23) mg/dl Creatinine (0.6-1.4) mg/dl Est Cr Clr Drug Dosing ml/min Est GFR ( Amer) ml/min Est GFR (Non-Af Amer) ml/min BUN/Creatinine Ratio (10-20) Glucose (70-99(Fasting)) mg/dl Lactate (0.4-2.0) mmol/L Calcium (8.6-10.3) mg/dl Magnesium (1.7-2.4) mg/dl Total Bilirubin (0.2-1.0) mg/dl Direct Bilirubin (0-0.2) mg/dl AST (13-39) U/L ALT (7-52) U/L Alkaline Phosphatase (34-104) U/L Troponin I High Sens (0-20) pg/ml Total Protein (6.0-8.3) gm/dl Albumin (3.4-5.0) gm/dl Procalcitonin (0-0.5) ng/ml Urine Color Yellow Urine Appearance Clear (Clear) Urine pH 7.0 (4.5-7.5) Ur Specific [place] 1.003 (1.000-1.030) Urine Protein Negative (Negative) Urine Glucose (UA) Negative (Negative) Urine Ketones Negative (Negative) Urine Blood 3+ H (Negative) Urine Nitrite Negative (Negative) Urine Bilirubin Negative (Negative) Urine Urobilinogen Negative (Negative) Ur Leukocyte Esterase 2+ H (Negative) Urine RBC 0-4 (0-4) /hpf Urine WBC 5-10 H (0-5) /hpf Ur Epithelial Cells 0-5 (0-5) /lpf Urine Bacteria 1+ H (Negative) Adenovirus (PCR) Not Detected (NotDetected) B. pertussis DNA (PCR) Not Detected (NotDetected) B.parapertussis DNA PCR Not Detected (NotDetected) C. pneumoniae DNA (PCR) Not Detected (NotDetected) Coronavirus OC43 (PCR) Not Detected (NotDetected) Coronavirus HKU1 (PCR) Not Detected (NotDetected) Coronavirus 229E (PCR) Not Detected (NotDetected) SARS-CoV-2 (PCR) Not Detected (NotDetected) Coronavirus NL63 (PCR) Not Detected (NotDetected) Human Metapneumovir PCR Not Detected (NotDetected) Influenza Type A (PCR) Not Detected (NotDetected) Influenza Type B (PCR) Not Detected (NotDetected) M. pneumoniae (PCR) Not Detected (NotDetected) Parainfluenza 1 (PCR) Not Detected (NotDetected) Parainfluenza 2 (PCR) Not Detected (NotDetected) Parainfluenza 3 (PCR) Not Detected (NotDetected) Parainfluenza 4 (PCR) Not Detected (NotDetected) RSV (PCR) Not Detected (NotDetected) Entero/Rhino (PCR) Not Detected (NotDetected) 06/29/23 06/29/23 06/29/23 Range/Units 23:35 23:35 23:35 WBC (4.8-10.8) K/ul RBC (4.70-6.10) M/uL Hgb (14.0-18.0) g/dl Hct (42.0-52.0) % MCV (80.0-100.0) fL MCH (25.0-34.0) pg MCHC (32.0-36.0) g/dL RDW Std Deviation (36.4-46.3) fL RDW Coeff of Denisa (11.5-14.5) % Plt Count (130-400) K/uL MPV (9.4-12.4) fL Immature Gran % (Auto) % Neut % (Auto) % Lymph % (Auto) % [place] % (Auto) % Eos % (Auto) % Baso % (Auto) % Neut # (Auto) (1.40-6.50) K/uL Lymph # (Auto) (1.20-3.40) K/uL [place] # (Auto) (0.11-0.59) K/uL Eos # (Auto) (0.00-0.50) K/uL Baso # (Auto) (0.00-0.20) K/uL Immature Gran # (Auto) (0.01-0.20) K/uL VBG pH (7.36-7.41) VBG pCO2 (38-50) mmHg VBG pO2 mmHg VBG HCO3 mmol/L VBG O2 Saturation % VBG Base Excess mEq/L Sodium 132 L (136-145) mmol/L Potassium 3.6 (3.5-5.1) mmol/L Chloride 105 (98-107) mmol/L Carbon Dioxide 18 L (21-32) mmol/L Anion Gap 9 (3-11) BUN 12 (6-23) mg/dl Creatinine 0.71 (0.6-1.4) mg/dl Est Cr Clr Drug Dosing 110.6 ml/min Est GFR ( Amer) 137.0 ml/min Est GFR (Non-Af Amer) 118.2 ml/min BUN/Creatinine Ratio 16.9 (10-20) Glucose 128 H (70-99(Fasting)) mg/dl Lactate 1.4 (0.4-2.0) mmol/L Calcium 9.1 (8.6-10.3) mg/dl Magnesium 2.0 (1.7-2.4) mg/dl Total Bilirubin 1.0 (0.2-1.0) mg/dl Direct Bilirubin 0.2 (0-0.2) mg/dl AST 20 (13-39) U/L ALT 42 (7-52) U/L Alkaline Phosphatase 128 H (34-104) U/L Troponin I High Sens 6.9 (0-20) pg/ml Total Protein 7.6 (6.0-8.3) gm/dl Albumin 4.2 (3.4-5.0) gm/dl Procalcitonin 0.94 H (0-0.5) ng/ml Urine Color Urine Appearance (Clear) Urine pH (4.5-7.5) Ur Specific [place] (1.000-1.030) Urine Protein (Negative) Urine Glucose (UA) (Negative) Urine Ketones (Negative) Urine Blood (Negative) Urine Nitrite (Negative) Urine Bilirubin (Negative) Urine Urobilinogen (Negative) Ur Leukocyte Esterase (Negative) Urine RBC (0-4) /hpf Urine WBC (0-5) /hpf Ur Epithelial Cells (0-5) /lpf Urine Bacteria (Negative) Adenovirus (PCR) (NotDetected) B. pertussis DNA (PCR) (NotDetected) B.parapertussis DNA PCR (NotDetected) C. pneumoniae DNA (PCR) (NotDetected) Coronavirus OC43 (PCR) (NotDetected) Coronavirus HKU1 (PCR) (NotDetected) Coronavirus 229E (PCR) (NotDetected) SARS-CoV-2 (PCR) (NotDetected) Coronavirus NL63 (PCR) (NotDetected) Human Metapneumovir PCR (NotDetected) Influenza Type A (PCR) (NotDetected) Influenza Type B (PCR) (NotDetected) M. pneumoniae (PCR) (NotDetected) Parainfluenza 1 (PCR) (NotDetected) Parainfluenza 2 (PCR) (NotDetected) Parainfluenza 3 (PCR) (NotDetected) Parainfluenza 4 (PCR) (NotDetected) RSV (PCR) (NotDetected) Entero/Rhino (PCR) (NotDetected) 06/29/23 Range/Units 23:35 WBC (4.8-10.8) K/ul RBC (4.70-6.10) M/uL Hgb (14.0-18.0) g/dl Hct (42.0-52.0) % MCV (80.0-100.0) fL MCH (25.0-34.0) pg MCHC (32.0-36.0) g/dL RDW Std Deviation (36.4-46.3) fL RDW Coeff of Denisa (11.5-14.5) % Plt Count (130-400) K/uL MPV (9.4-12.4) fL Immature Gran % (Auto) % Neut % (Auto) % Lymph % (Auto) % [place] % (Auto) % Eos % (Auto) % Baso % (Auto) % Neut # (Auto) (1.40-6.50) K/uL Lymph # (Auto) (1.20-3.40) K/uL [place] # (Auto) (0.11-0.59) K/uL Eos # (Auto) (0.00-0.50) K/uL Baso # (Auto) (0.00-0.20) K/uL Immature Gran # (Auto) (0.01-0.20) K/uL VBG pH 7.46 H (7.36-7.41) VBG pCO2 25 L (38-50) mmHg VBG pO2 65 mmHg VBG HCO3 18 mmol/L VBG O2 Saturation 94.7 % VBG Base Excess -4.3 mEq/L Sodium (136-145) mmol/L Potassium (3.5-5.1) mmol/L Chloride (98-107) mmol/L Carbon Dioxide (21-32) mmol/L Anion Gap (3-11) BUN (6-23) mg/dl Creatinine (0.6-1.4) mg/dl Est Cr Clr Drug Dosing ml/min Est GFR ( Amer) ml/min Est GFR (Non-Af Amer) ml/min BUN/Creatinine Ratio (10-20) Glucose (70-99(Fasting)) mg/dl Lactate (0.4-2.0) mmol/L Calcium (8.6-10.3) mg/dl Magnesium (1.7-2.4) mg/dl Total Bilirubin (0.2-1.0) mg/dl Direct Bilirubin (0-0.2) mg/dl AST (13-39) U/L ALT (7-52) U/L Alkaline Phosphatase (34-104) U/L Troponin I High Sens (0-20) pg/ml Total Protein (6.0-8.3) gm/dl Albumin (3.4-5.0) gm/dl Procalcitonin (0-0.5) ng/ml Urine Color Urine Appearance (Clear) Urine pH (4.5-7.5) Ur Specific [place] (1.000-1.030) Urine Protein (Negative) Urine Glucose (UA) (Negative) Urine Ketones (Negative) Urine Blood (Negative) Urine Nitrite (Negative) Urine Bilirubin (Negative) Urine Urobilinogen (Negative) Ur Leukocyte Esterase (Negative) Urine RBC (0-4) /hpf Urine WBC (0-5) /hpf Ur Epithelial Cells (0-5) /lpf Urine Bacteria (Negative) Adenovirus (PCR) (NotDetected) B. pertussis DNA (PCR) (NotDetected) B.parapertussis DNA PCR (NotDetected) C. pneumoniae DNA (PCR) (NotDetected) Coronavirus OC43 (PCR) (NotDetected) Coronavirus HKU1 (PCR) (NotDetected) Coronavirus 229E (PCR) (NotDetected) SARS-CoV-2 (PCR) (NotDetected) Coronavirus NL63 (PCR) (NotDetected) Human Metapneumovir PCR (NotDetected) Influenza Type A (PCR) (NotDetected) Influenza Type B (PCR) (NotDetected) M. pneumoniae (PCR) (NotDetected) Parainfluenza 1 (PCR) (NotDetected) Parainfluenza 2 (PCR) (NotDetected) Parainfluenza 3 (PCR) (NotDetected) Parainfluenza 4 (PCR) (NotDetected) RSV (PCR) (NotDetected) Entero/Rhino (PCR) (NotDetected) MDM Narrative Physical exam and history were performed. Nursing notes, EMR, and Medication List were personally reviewed. No social concerns were identified as barriers to patients care. Patient appears to have fever and tachycardia upon arrival to the ER. Patient has multiple potential comorbidities, as well as a complicated past medical history. Vascular access is somewhat difficult, however we were able to est ablish a single good IV site. Labs were obtained. Patient was hydrated with 2 L normal saline for possible sepsis. He was empirically started on Zosyn after blood, urine, and trach cultures were performed. Patient's blood work is as above and was reviewed. He does have an elevated white count of almost 13,000. He is slightly anemic at 13.1. Lactic is normal with cultures pending. Glucose is 128. Troponin x1 is nondiagnostic. Urine was collected from his Jade bag and sent to the lab. Urine is with blood and esterase. Chest x-ray was reviewed and may show some findings in the right lower lobe, however it is difficult to interpret. Bio fire is negative. Overall the patient does not appear well for discharge home. With multiple comorbidities and a sepsis picture, it is felt that he needs further care in the hospital. Case was discussed with my attending, Dr. Del Angel, and also with the on-call hospitalist team. Please see the hospitalist team dictation for further patient course, plan, disposition. The chart was completed utilizing [employer] Voice Recognition Software. Grammatical errors, random word insertions, pronoun errors, and incomplete sentences are an occasional consequence of this system due to software limitations, ambient noise, and hardware issues. Any formal questions or concerns about the content, text, or information contained within the body of this dictation should be directly addressed to the provider for clarification. . Impression & Plan Sepsis, Fever of unknown origin Discharge Plan Visit Data Chief Complaint: Fever Stated Complaint: flu like illness ED Provider: Pee Del Angel ED Midlevel Provider: [facility] Discharge Problem: Sepsis, Fever of unknown origin Forms Stand Alone Forms: My [facility] Penemarie K Murphy Prescriptions Prescriptions: No Action multivitamin Tablet 1 tab PO DAILY gabapentin 600 mg tablet 600 mg PO QAM gabapentin 600 mg tablet 1,200 mg PO QPM famotidine 20 mg tablet 20 mg PO DAILY montelukast 10 mg tablet 10 mg PO HS tizanidine 2 mg capsule 2 mg PO HS tizanidine 2 mg capsule 1 mg PO BID Rx Instructions: take 1/2 tablet at 8am & 4pm magnesium oxide 400 mg magnesium Tablet 400 mg PO HS melatonin 10 mg Tablet 10 mg PO HS PRN (Reason: Insomnia) sennosides [Senna Laxative] 8.6 mg Tablet 8.6 mg PO BID PRN (Reason: Constipation) triamcinolone acetonide 0.1 % ointment 1 applic TOPICAL BID PRN (Reason: open areas bilateral buttocks) ipratropium-albuterol 0.5 mg-3 mg(2.5 mg base)/3 mL solution for nebulization 3 ml INHALATION BID Rx Instructions: twice daily via vent ipratropium-albuterol 0.5 mg-3 mg(2.5 mg base)/3 mL solution for nebulization 3 ml INHALATION Q4 PRN (Reason: SOB,wheezing or increased secretions) Rx Instructions: via vent doxepin 75 mg capsule 75 mg PO DAILY minocycline 50 mg capsule 50 mg PO DAILY triamcinolone acetonide 0.1 % lotion 1 applic TOPICAL Q OTHER DAY Rx Instructions: apply to face,ears and scalp baclofen 20 mg tablet 20 mg PO QID clobetasol 0.05 % shampoo 1 applic TOPICAL Q OTHER DAY Rx Instructions: apply to scalp and leave on for 60 minutes then rinse thoroughly olopatadine 0.2 % Drops 1 drp OPB DAILY acetaminophen [Tylenol] 325 mg Tablet 650 mg PO Q4 PRN (Reason: Mild Pain (Scale Score 1-4)) acetaminophen [Tylenol] 325 mg Tablet 650 mg PO Q4 MDD 3gm PRN (Reason: temp>101 f) bisacodyl 10 mg Suppository 10 mg AR DAILY acetaminophen [Tylenol Extra Strength] 500 mg Tablet 1,000 mg PO Q8 MDD 3g PRN (Reason: temp > 101) acetylcysteine 200 mg/mL (20 %) Solution 2 ml INHALATION Q6 PRN (Reason: Secretions) Rx Instructions: via vent Fleet Enema 19-7 gram/118 mL Enema 118 ml AR Q OTHER DAY PRN (Reason: Constipation) magnesium hydroxide [Milk of Magnesia] 400 mg/5 mL Suspension 30 ml PO .EVERY 3 DAYS PRN (Reason: Constipation) lorazepam 2 mg tablet 4 mg PO UD Rx Instructions: give 2 tablets 30-60 minutes prior to trach change to control neck muscle spasms sodium chloride 7 % Solution For Nebulization 1 inh INHALATION BID PRN (Reason: increased or thickened secretions) Rx Instructions: give via vent Referrals Referrals: Suzanna Mendez [Primary Care Provider] -
[2023-06-30] MEDS ORDERED: POLYETHYLENE (MIRALAX) 17 GM PACK PO PRN (04:50)
[2023-06-30] MEDS ORDERED: SENNA 8.6 MG TAB PO PRN (04:50)
[2023-06-30] MEDS ORDERED: ALBUT/IPRATROP 3MG/0.5MG NEB 3 ML VIAL INH PRN (04:50)
[2023-06-30] MEDS ORDERED: SOD PHOSPHATE/SOD BIPHOSPHATE ENEMA 132 ML BTL PR PRN (04:50)
[2023-06-30] MEDS ORDERED: MELATONIN 3 MG TAB PO PRN (04:55)
[2023-06-30] MEDS ORDERED: ACETYLCYSTEINE 20% INHAL SOLN 4ML ***DISPENSED BY RESP. INH PRN (05:00)
[2023-06-30] MEDS ORDERED: LORazepam 1 MG TAB PO PRN (05:04)
[2023-06-30] MEDS: PIPERACILLIN/TAZOBACTAM 4.5 GM in DEXTROSE 5% MINI-B 100 ML IV SCH ×3 (05:48→22:09)
[2023-06-30] MEDS: ALBUT/IPRATROP 3MG/0.5MG NEB 3 ML VIAL INH SCH ×2 (07:19→19:52)
[2023-06-30] MEDS: tiZANidine HCL 4 MG TABLET PO SCH ×3 (08:34→20:38)
[2023-06-30] MEDS: BACLOFEN 20 MG TAB PO SCH ×4 (08:34→20:37)
[2023-06-30] MEDS: ENOXAPARIN INJ 40 MG/0.4 ML SYR SQ SCH ×2 (08:35→08:44)
[2023-06-30] MEDS: FAMOTIDINE 20 MG TAB PO SCH (08:35)
[2023-06-30] MEDS: GABAPENTIN 600 MG TAB PO SCH ×2 (08:36→20:39)
[2023-06-30] MEDS: MULTIVITAMIN TAB PO SCH (08:36)
--- NOTE | 2023-06-30 08:47 | XRay Report ---
XR chest 1V portable CLINICAL HISTORY: Sepsis TECHNIQUE: Single frontal radiograph of the chest was obtained. Comparison: Comparison is made to chest radiograph 08/13/2019 FINDINGS: Tracheostomy tube is seen. The cardiomediastinal silhouette is stable. Right lower lung airspace opac ity is seen, new from prior exam. No evidence of pleural effusion or pneumothorax. IMPRESSION: 1. Right lower lung airspace opacity may represent atelectasis, pneumonia, and/or aspiration. 2. Stable tracheostomy tube. ACT 112: Negative or not required by law. Electronically signed by: Marty Quispe M.D. 06/30/2023 8:46 AM
[2023-06-30] MEDS ORDERED: bisacodyL 10 MG SUPP PR SCH (09:00)
[2023-06-30] MEDS: MINOCYCLINE HCL 50 MG CAP PO SCH (11:16)
--- NOTE | 2023-06-30 15:01 | Electrocardiogram Report ---
Test Reason : Blood Pressure : / mmHG Vent. Rate : 102 BPM Atrial Rate : 102 BPM P-R Int : 122 ms QRS Dur : 100 ms QT Int : 356 ms P-R-T Axes : 015 046 064 degrees QTc Int : 463 ms Sinus tachycardia Nonspecific T wave abnormality Incomplete right bundle branch block Abnormal ECG No previous ECGs available Confirmed by Jaziel Walsh ([id number]) on 06/30/2023 3:01:11 PM Referred By: REFERRED SELF Confirmed By:Lamine Walsh
[2023-06-30] MEDS: bisacodyL 10 MG SUPP PR SCH (18:00)
[2023-06-30] MEDS: MONTELUKAST SODIUM 10 MG TABLET PO SCH (20:36)
[2023-06-30] MEDS: MAGNESIUM OXIDE 400 MG TAB PO SCH (20:36)
[2023-06-30] MEDS: DOXEPIN HCL 75 MG CAPSULE PO SCH (20:36)
--- NOTE | 2023-07-01 03:08 | Billing Data ---
Date of Service June 30, 2023 Coding Level of Care Code 35773 INT INP/OBS CARE
[2023-07-01] MEDS: ACETAMINOPHEN 325 MG TAB PO PRN (03:17)
[2023-07-01 04:30] LABS: Basophils # (auto) 0.02 K/uL (0.00-0.20); Basophils % (auto) 0.4 %; Eosinophils # (auto) 0.16 K/uL (0.00-0.50); Eosinophils % (auto) 3.6 %; Hematocrit (blood only) 33.6 % (42.0-52.0); Hemoglobin 11.4 g/dl (14.0-18.0); Immature Granulocytes # (auto) 0.02 K/uL (0.01-0.20); Immature Granulocytes % (auto) 0.4 %; Lymphocytes # (auto) 0.98 K/uL (1.20-3.40); Mean Corpuscular Hemoglobin 30.2 pg (25.0-34.0); Mean Corpuscular Hgb Conc 33.9 g/dL (32.0-36.0); Mean Corpuscular Volume 88.9 fL (80.0-100.0); Mean Platelet Volume 11.6 fL (9.4-12.4); Monocytes # (auto) 0.55 K/uL (0.11-0.59); Monocytes % (auto) 12.3 %; Neutrophils # (auto) 2.73 K/uL (1.40-6.50); Neutrophils % (auto) 61.3 %; Platelet Count 154 K/uL (130-400); RDW Coefficient of Variation 16.1 % (11.5-14.5); RDW Standard Deviation 52.7 fL (36.4-46.3); Red Blood Count 3.78 M/uL (4.70-6.10); White Blood Count 4.46 K/ul (4.8-10.8)
[2023-07-01 04:35] LABS: BUN Creatinine Ratio 14.5 (10-20); C Reactive Protein 17.97 mg/dl (0-0.5); Calcium 8.9 mg/dl (8.6-10.3); Creatinine Clr Calc Pharmacy 118.5 ml/min; Est GFR (African American) 138.6 ml/min; Est GFR (Non-African American) 119.6 ml/min; Potassium 3.5 mmol/L (3.5-5.1)
[2023-07-01] MEDS: PIPERACILLIN/TAZOBACTAM 4.5 GM in DEXTROSE 5% MINI-B 100 ML IV SCH ×3 (06:17→21:00)
[2023-07-01] MEDS: ALBUT/IPRATROP 3MG/0.5MG NEB 3 ML VIAL INH SCH ×2 (07:29→21:06)
[2023-07-01] MEDS: BACLOFEN 20 MG TAB PO SCH ×4 (08:02→21:02)
[2023-07-01] MEDS: ENOXAPARIN INJ 40 MG/0.4 ML SYR SQ SCH (08:02)
[2023-07-01] MEDS: tiZANidine HCL 4 MG TABLET PO SCH ×3 (08:03→21:01)
[2023-07-01] MEDS: GABAPENTIN 600 MG TAB PO SCH ×2 (08:04→21:01)
[2023-07-01] MEDS: MULTIVITAMIN TAB PO SCH (08:04)
[2023-07-01] MEDS: FAMOTIDINE 20 MG TAB PO SCH (08:04)
[2023-07-01] MEDS: MINOCYCLINE HCL 50 MG CAP PO SCH (11:29)
[2023-07-01] MEDS: MAGNESIUM OXIDE 400 MG TAB PO SCH (21:00)
[2023-07-01] MEDS: DOXEPIN HCL 75 MG CAPSULE PO SCH (21:00)
[2023-07-01] MEDS: MONTELUKAST SODIUM 10 MG TABLET PO SCH (21:02)
--- NOTE | 2023-07-01 23:32 | Hospitalist Progress Note ---
Date of Service July 01, 2023 Assessment & Plan (1) Spasticity: Plan: Sepsis: Plan: Patient is a 37-year-old male with a past medical history of transverse myelitis with ventilator dependence with tracheostomy who comes to the hospital for evaluation of fever. Suspect patient has urinary tract infection secondary to Jade catheter. For this reason, patient be admitted for treatment. -Admit to telemetry but placed in ICU given home ventilator dependence with tracheostomy -SIRS criteria with tachycardia, elevated white blood cell count, fever, and respirations equal to 20 on admission -Suspect source is urinary given positive urinalysis. -Suspect this is actually a cystitis and patient chronically has soft blood pressure, tachycardia -Given higher risk for unusual bacteria given chronic Jade catheter, cover with Zosyn for now every 8 hour -Urine cultures taken, follow culture results -Blood cultures taken, pending -Sputum cultures from trach ordered. Patient has not had increased sputum or dyspnea/increased ventilator requirements -Status post 2 L of crystalloid fluid which is adequate per sepsis protocol (2) UTI (urinary tract infection): Plan: -Treatment as above -Zosyn for now and tailor antibiotics as results return Awaiting cultures Possible discharge on 07/02 if no recurrent fevers (3) Ventilator dependence: Plan: -May use own home ventilator -PCU/telemetry status in ICU for nursing care -Acetylcysteine inhalation every 6 hours as needed for secretions -Suction PRN Home Settings: Mode: Assist Control Rate: 16 bpm PEEP: 5 cm/H2O Tidal Volume: 500 Inspiratory time: 1.0 sec (4) Transverse myelitis: Plan: - Chronic condition resulting in paraplegia, ventilator dependence -Treatment of secondary conditions below (5) Quadriplegia: Plan: -Aspiration precautions, ulcer precautions, no dietary restrictions -HOB at 30-45 degrees -Frequent repositioning -Continue Jade catheter care -Spasm management with Tylenol, baclofen, doxepin, gabapentin, tizanidine (6) Neurogenic bowel: Plan: - Continue home bowel regimen (7) Neuromuscular dysfunction of bladder: Plan: - Continue Jade catheter management (8) GERD without esophagitis: Plan: -Continue Pepcid (9) Anxiety disorder: (10) Legal blindness: (11) Indwelling Jade catheter present: Plan Disposition: Admit to PCU/telemetry but placed in ICU for vent management DVT prophylaxis: Lovenox Diet: Regular with aspiration precautions CODE STATUS: Full code (2) Fatigue: (3) S/P partial gastrectomy: (4) Acute transverse myelitis: (5) Bleeding from gastrostomy tube site: (6) Gastrocutaneous fistula: (7) Ventilator dependent: (8) Quadriplegia: (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 Patient did report having a temperature in the AM this morning. Review of Systems Review of Systems: All systems reviewed & are unremarkable except as noted in HPI & below Physical Exam Physical Exam: Constitutional: well nourished, cooperative and comfortable Eyes: + anicteric sclerae Neck: trachea midline Tracheostomy in place with ventilator Respiratory: Auscultation: lungs clear to auscultation bilaterally Skin: no rashes, warm and dry. stage 2 decub ulcer: covered in a bandage. Neurologic: awake Psychiatric: A+Ox3, euthymic affect Genitourinary: Jade catheter in place. Results & Data Results & Data Vital Signs (Past 12 Hours) Vital Signs Temp Pulse Pulse Resp BP Pulse Ox O2 Del Method 07/01/23 22:00 92 H 18 98 07/01/23 20:00 84 16 96 07/01/23 20:00 110/73 07/01/23 19:00 89 16 96 07/01/23 20:00 07/01/23 21:06 99 H 94 Mechanical Vent 07/01/23 18:00 87 16 100/69 95 07/01/23 16:00 83 17 106/71 95 07/01/23 16:00 36.9 C 07/01/23 16:00 07/01/23 16:00 79 07/01/23 14:00 79 16 99/64 L 94 07/01/23 12:00 86 24 98/73 L 96 07/01/23 12:00 37.2 C 07/01/23 12:00 FiO2 07/01/23 22:00 07/01/23 20:00 07/01/23 20:00 07/01/23 19:00 07/01/23 20:00 21 07/01/23 21:06 07/01/23 18:00 07/01/23 16:00 07/01/23 16:00 07/01/23 16:00 21 07/01/23 16:00 07/01/23 14:00 07/01/23 12:00 07/01/23 12:00 07/01/23 12:00 21 PG Care Time/CCT Total # of Minutes Spent Total Time Spent with Patient: Total time spent is greater than 50% in coordination of care (as documented) at patient's floor/unit and/or counseling patient: Coding Level of Care Code 04793 SUB INP/OBS CARE 2/35MIN Diagnoses Spasticity R25.2 Fatigue R53.83 S/P partial gastrectomy Z90.3 Acute transverse myelitis G37.3 Bleeding from gastrostomy tube site K94.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
[2023-07-02 03:58] LABS: Hematocrit (blood only) 33.9 % (42.0-52.0); Hemoglobin 11.6 g/dl (14.0-18.0); Mean Corpuscular Hemoglobin 30.4 pg (25.0-34.0); Mean Corpuscular Hgb Conc 34.2 g/dL (32.0-36.0); Mean Platelet Volume 11.7 fL (9.4-12.4); Platelet Count 167 K/uL (130-400); RDW Coefficient of Variation 16.7 % (11.5-14.5); RDW Standard Deviation 54.5 fL (36.4-46.3); Red Blood Count 3.81 M/uL (4.70-6.10); White Blood Count 4.98 K/ul (4.8-10.8)
[2023-07-02 04:22] LABS: BUN Creatinine Ratio 15.3 (10-20); C Reactive Protein 10.05 mg/dl (0-0.5); Calcium 8.7 mg/dl (8.6-10.3); Creatinine Clr Calc Pharmacy 113.5 ml/min; Est GFR (African American) 136.2 ml/min; Est GFR (Non-African American) 117.5 ml/min; Potassium 3.5 mmol/L (3.5-5.1)
[2023-07-02] MEDS: PIPERACILLIN/TAZOBACTAM 4.5 GM in DEXTROSE 5% MINI-B 100 ML IV SCH ×3 (06:48→20:49)
[2023-07-02] MEDS: ALBUT/IPRATROP 3MG/0.5MG NEB 3 ML VIAL INH SCH ×2 (07:30→20:07)
[2023-07-02] MEDS: ENOXAPARIN INJ 40 MG/0.4 ML SYR SQ SCH (07:32)
[2023-07-02] MEDS: MULTIVITAMIN TAB PO SCH (07:56)
[2023-07-02] MEDS: BACLOFEN 20 MG TAB PO SCH ×4 (07:56→20:47)
[2023-07-02] MEDS: FAMOTIDINE 20 MG TAB PO SCH (07:56)
[2023-07-02] MEDS: GABAPENTIN 600 MG TAB PO SCH ×2 (07:56→20:49)
[2023-07-02] MEDS: tiZANidine HCL 4 MG TABLET PO SCH ×3 (07:57→20:47)
[2023-07-02 09:47] LABS: NDM Carbapenemase NOT DETECTED (NotDetected)
[2023-07-02 10:38] LABS: KPC Carbapenemase DETECTED (NotDetected)
[2023-07-02] MEDS: MINOCYCLINE HCL 50 MG CAP PO SCH (11:26)
[2023-07-02] MEDS: bisacodyL 10 MG SUPP PR SCH (17:49)
[2023-07-02] MEDS: DOXEPIN HCL 75 MG CAPSULE PO SCH (20:48)
[2023-07-02] MEDS: MAGNESIUM OXIDE 400 MG TAB PO SCH (20:48)
[2023-07-02] MEDS: MONTELUKAST SODIUM 10 MG TABLET PO SCH (20:49)
--- NOTE | 2023-07-02 23:28 | Hospitalist Progress Note ---
Date of Service July 02, 2023 Assessment & Plan (1) Spasticity: Plan: Sepsis: Plan: Patient is a 37-year-old male with a past medical history of transverse myelitis with ventilator dependence with tracheostomy who comes to the hospital for evaluation of fever. Suspect patient has urinary tract infection secondary to Jade catheter. For this reason, patient be admitted for treatment. -Admit to telemetry but placed in ICU given home ventilator dependence with tracheostomy -SIRS criteria with tachycardia, elevated white blood cell count, fever, and respirations equal to 20 on admission -Suspect source is urinary given positive urinalysis. -Suspect this is actually a cystitis and patient chronically has soft blood pressure, tachycardia -Given higher risk for unusual bacteria given chronic Jade catheter, cover with Zosyn for now every 8 hour -Urine cultures taken, follow culture results -Blood cultures taken, pending -Sputum cultures from trach ordered. Patient has not had increased sputum or dyspnea/increased ventilator requirements -Status post 2 L of crystalloid fluid which is adequate per sepsis protocol (2) UTI (urinary tract infection): Plan: -Treatment as above -Zosyn for now and tailor antibiotics as results return Awaiting cultures: sadly one of the bacteria appears to have a carbapenase gene. will obtain sensitivities likely on 07/03. This will delay discharge for another day. (3) Ventilator dependence: Plan: -May use own home ventilator -PCU/telemetry status in ICU for nursing care -Acetylcysteine inhalation every 6 hours as needed for secretions -Suction PRN Home Settings: Mode: Assist Control Rate: 16 bpm PEEP: 5 cm/H2O Tidal Volume: 500 Inspiratory time: 1.0 sec (4) Transverse myelitis: Plan: - Chronic condition resulting in paraplegia, ventilator dependence -Treatment of secondary conditions below (5) Quadriplegia: Plan: -Aspiration precautions, ulcer precautions, no dietary restrictions -HOB at 30-45 degrees -Frequent repositioning -Continue Jade catheter care -Spasm management with Tylenol, baclofen, doxepin, gabapentin, tizanidine (6) Neurogenic bowel: Plan: - Continue home bowel regimen (7) Neuromuscular dysfunction of bladder: Plan: - Continue Jade catheter management (8) GERD without esophagitis: Plan: -Continue Pepcid (9) Anxiety disorder: (10) Legal blindness: (11) Indwelling Jade catheter present: (2) Fatigue: (3) S/P partial gastrectomy: (4) Acute transverse myelitis: (5) Bleeding from gastrostomy tube site: (6) Gastrocutaneous fistula: (7) Ventilator dependent: (8) Quadriplegia: (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 No fevers. Review of Systems Review of Systems: All systems reviewed & are unremarkable except as noted in HPI & below Physical Exam Physical Exam: Constitutional: well nourished, cooperative and comfortable Eyes: + anicteric sclerae Neck: trachea midline Tracheostomy in place with ventilator Respiratory: Auscultation: lungs clear to auscultation bilaterally Skin: no rashes, warm and dry. stage 2 decub ulcer: covered in a bandage. Neurologic: awake Psychiatric: A+Ox3, euthymic affect Genitourinary: Jade catheter in place. Results & Data Results & Data Vital Signs (Past 12 Hours) Vital Signs Temp Pulse Pulse Resp BP Pulse Ox O2 Del Method 07/02/23 20:00 07/02/23 20:07 98 H 20 Mechanical Vent 07/02/23 18:00 88 22 96 07/02/23 16:00 81 18 97 07/02/23 16:00 114/77 07/02/23 14:00 87 18 95 07/02/23 16:05 36.8 C 07/02/23 16:00 07/02/23 16:00 84 07/02/23 12:00 84 17 96 07/02/23 12:00 110/72 07/02/23 12:29 36.5 C 07/02/23 12:00 O2 Flow Rate FiO2 07/02/23 20:00 21 07/02/23 20:07 97 07/02/23 18:00 07/02/23 16:00 07/02/23 16:00 07/02/23 14:00 07/02/23 16:05 07/02/23 16:00 21 07/02/23 16:00 07/02/23 12:00 07/02/23 12:00 07/02/23 12:29 07/02/23 12:00 21 PG Care Time/CCT Total # of Minutes Spent Total Time Spent with Patient: Total time spent is greater than 50% in coordination of care (as documented) at patient's floor/unit and/or counseling patient: Coding Level of Care Code 06075 SUB INP/OBS CARE 2/35MIN Diagnoses Spasticity R25.2 Fatigue R53.83 S/P partial gastrectomy Z90.3 Acute transverse myelitis G37.3 Bleeding from gastrostomy tube site K94.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
[2023-07-03 04:26] LABS: Creatinine Clr Calc Pharmacy 104.8 ml/min; Est GFR (African American) 131.8 ml/min; Est GFR (Non-African American) 113.7 ml/min
[2023-07-03] MEDS: PIPERACILLIN/TAZOBACTAM 4.5 GM in DEXTROSE 5% MINI-B 100 ML IV SCH (05:50)
[2023-07-03] MEDS: ALBUT/IPRATROP 3MG/0.5MG NEB 3 ML VIAL INH SCH ×2 (07:26→20:06)
[2023-07-03] MEDS: ENOXAPARIN INJ 40 MG/0.4 ML SYR SQ SCH (08:32)
[2023-07-03] MEDS: MULTIVITAMIN TAB PO SCH (08:33)
[2023-07-03] MEDS: GABAPENTIN 600 MG TAB PO SCH ×2 (08:33→20:55)
[2023-07-03] MEDS: FAMOTIDINE 20 MG TAB PO SCH (08:33)
[2023-07-03] MEDS: BACLOFEN 20 MG TAB PO SCH ×4 (08:33→20:56)
[2023-07-03] MEDS: tiZANidine HCL 4 MG TABLET PO SCH ×3 (08:33→22:16)
--- NOTE | 2023-07-03 11:19 | Hospitalist Progress Note ---
Date of Service July 03, 2023 Assessment & Plan (1) Spasticity: Plan: Sepsis: Plan: Patient is a 37-year-old male with a past medical history of transverse myelitis with ventilator dependence with tracheostomy who comes to the hospital for evaluation of fever. Suspect patient has urinary tract infection secondary to Jade catheter. For this reason, patient be admitted for treatment. -Admit to telemetry but placed in ICU given home ventilator dependence with tracheostomy -SIRS criteria with tachycardia, elevated white blood cell count, fever, and respirations equal to 20 on admission -Suspect source is urinary given positive urinalysis. -Suspect this is actually a cystitis and patient chronically has soft blood pressure, tachycardia -Given higher risk for unusual bacteria given chronic Jade catheter, cover with Zosyn for now every 8 hour -Urine cultures taken, follow culture results -Blood cultures taken, pending -Sputum cultures from trach ordered. Patient has not had increased sputum or dyspnea/increased ventilator requirements -Status post 2 L of crystalloid fluid which is adequate per sepsis protocol (2) UTI (urinary tract infection): Plan: -Treatment as above -Zosyn for now and tailor antibiotics as results return Awaiting cultures: Deny is multi resistent, will need to use 5th gen cephalosporin. setting up home health. (3) Ventilator dependence: Plan: -May use own home ventilator -PCU/telemetry status in ICU for nursing care -Acetylcysteine inhalation every 6 hours as needed for secretions -Suction PRN Home Settings: Mode: Assist Control Rate: 16 bpm PEEP: 5 cm/H2O Tidal Volume: 500 Inspiratory time: 1.0 sec (4) Transverse myelitis: Plan: - Chronic condition resulting in paraplegia, ventilator dependence -Treatment of secondary conditions below (5) Quadriplegia: Plan: -Aspiration precautions, ulcer precautions, no dietary restrictions -HOB at 30-45 degrees -Frequent repositioning -Continue Jade catheter care -Spasm management with Tylenol, baclofen, doxepin, gabapentin, tizanidine (6) Neurogenic bowel: Plan: - Continue home bowel regimen (7) Neuromuscular dysfunction of bladder: Plan: - Continue Jade catheter management (8) GERD without esophagitis: Plan: -Continue Pepcid (9) Anxiety disorder: (10) Legal blindness: (11) Indwelling Jade catheter present: (2) Fatigue: (3) S/P partial gastrectomy: (4) Acute transverse myelitis: (5) Bleeding from gastrostomy tube site: (6) Gastrocutaneous fistula: (7) Ventilator dependent: (8) Quadriplegia: (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 Patient denies any fever. Review of Systems Review of Systems: All systems reviewed & are unremarkable except as noted in HPI & below Physical Exam Physical Exam: Constitutional: well nourished, cooperative and comfortable Eyes: + anicteric sclerae Neck: trachea midline Tracheostomy in place with ventilator Respiratory: Auscultation: lungs clear to auscultation bilaterally Skin: no rashes, warm and dry. stage 2 decub ulcer: covered in a bandage. Neurologic: awake Psychiatric: A+Ox3, euthymic affect Results & Data Results & Data Vital Signs (Past 12 Hours) Vital Signs Temp Pulse Pulse Resp BP Pulse Ox O2 Del Method 07/03/23 10:00 90 20 95 07/03/23 08:00 36.9 C 07/03/23 08:00 94 H 18 96 07/03/23 08:00 107/71 07/03/23 07:00 83 16 96 07/03/23 08:00 07/03/23 08:00 Mechanical Vent 07/03/23 07:27 88 19 99 Mechanical Vent 07/03/23 06:00 83 16 96 07/03/23 05:00 84 16 97 07/03/23 04:00 84 16 97 07/03/23 04:00 104/76 07/03/23 03:00 85 16 96 07/03/23 02:00 84 16 97 07/03/23 01:00 85 16 96 07/03/23 00:00 90 18 96 07/03/23 00:00 116/85 07/03/23 04:00 07/03/23 00:00 FiO2 07/03/23 10:00 07/03/23 08:00 07/03/23 08:00 07/03/23 08:00 07/03/23 07:00 07/03/23 08:00 21 07/03/23 08:00 21 07/03/23 07:27 07/03/23 06:00 07/03/23 05:00 07/03/23 04:00 07/03/23 04:00 07/03/23 03:00 07/03/23 02:00 07/03/23 01:00 07/03/23 00:00 07/03/23 00:00 07/03/23 04:00 21 07/03/23 00:00 21 PG Care Time/CCT Total # of Minutes Spent Total Time Spent with Patient: Total time spent is greater than 50% in coordination of care (as documented) at patient's floor/unit and/or counseling patient: Coding Level of Care Code 63750 SUB INP/OBS CARE 2/35MIN Diagnoses Spasticity R25.2 Fatigue R53.83 S/P partial gastrectomy Z90.3 Acute transverse myelitis G37.3 Bleeding from gastrostomy tube site K94.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
[2023-07-03] MEDS: MINOCYCLINE HCL 50 MG CAP PO SCH (12:18)
[2023-07-03] MEDS: bisacodyL 10 MG SUPP PR SCH (17:03)
[2023-07-03] MEDS: MAGNESIUM OXIDE 400 MG TAB PO SCH (20:55)
[2023-07-03] MEDS: MONTELUKAST SODIUM 10 MG TABLET PO SCH (20:56)
[2023-07-03] MEDS: DOXEPIN HCL 75 MG CAPSULE PO SCH (20:56)
[2023-07-04] MEDS: ALBUT/IPRATROP 3MG/0.5MG NEB 3 ML VIAL INH SCH ×2 (07:50→19:49)
[2023-07-04] MEDS: MULTIVITAMIN TAB PO SCH (08:28)
[2023-07-04] MEDS: tiZANidine HCL 4 MG TABLET PO SCH ×3 (08:28→20:56)
[2023-07-04] MEDS: BACLOFEN 20 MG TAB PO SCH ×4 (08:28→20:54)
[2023-07-04] MEDS: GABAPENTIN 600 MG TAB PO SCH ×2 (08:28→20:55)
[2023-07-04] MEDS: FAMOTIDINE 20 MG TAB PO SCH (08:28)
[2023-07-04] MEDS: ENOXAPARIN INJ 40 MG/0.4 ML SYR SQ SCH (08:29)
[2023-07-04] MEDS: MINOCYCLINE HCL 50 MG CAP PO SCH (11:33)
--- NOTE | 2023-07-04 12:38 | Infectious Disease Consult ---
Date of Consultation July 04, 2023 Assessment & Plan (1) Transverse myelitis: (2) Quadriplegia: (3) Neuromuscular dysfunction of bladder: (4) Indwelling Chaidez catheter present: Plan This is a 37 year old male with transverse myelitis/quadriplegia with ventilator dependence with tracheostomy, chromic chaidez who presents for evaluation of fever. His chaidez is changed q 2weeks. About 1 week ago, it was changed, the day after he developed some discomfort and then noted blood from chaidez and in chaidez bag. He then developed fever, headache and all over body spasms which are the symptoms he usually gets with uti. His fevers continued to a TM 102.9 so he presented to ED. He denies nausea, cough, increased secretions from trach. Mother at bedside provides additional history. Admission Wbc 12.99, Bun 12, cr 0.71. UA 3+ bood, 5-10 Wbc, 1+ bacteria , Nasal pharyng Bio fire neg. + KPC detected by PCR , procal 0.94, crp 17.97. CXR shows Right lower lung airspace opacity may represent atelectasis, pneumonia, and/or aspiration. UC grew Morganella Morganii 70,000 ( R to cip, lev), 30, 000 Klebsiella pnA ( S Cef/Arash only ). Trach cx grew Serratia Jorge ( R ceftria, cipro, I Lev) and Morganella Morganii ( R to cip, lev), BC NGTD. He is currently on Zoayn. ID consulted for MDR klebsiella pneum. # Polymicrobial UTI # + trach cx likely colonized # quadraplegic # chronic chaidez #trach in place MIcro BCx 10/4 ngt Trach cx 10/4 Serratia mar ( R ceftria, cipro, I Lev). Morg Morganni: ( R to cip, lev), UCX 10/4 Morganella Morganii 70,000 ( R to cip, lev), 30, 000 Klebsiella pn ( S Cef/Arash only ). Mrsa screen 10/5 neg Abx Zosyn 10/4 - ongoing # UTi #KPC in urine # chronic chaidez # trach Recommendations. Change CHAIDEZ, start Ceftaz/arash Complete 7 days from chaidez change this admission trach cx + likely colonized - rouse cx on admission, no increased secretion or respiratory symptoms. Thank you for this consultation. ID will continue to follow. Yudy Ingram MD, MPH Infectious Disease [facility], ID [facility] Call [phone] with questions Consultation Information Consultation was provided via telemedicine using two-way real-time interactive telecommunication between the patient and the telemedicine provider. For the duration of the visit, the provider was performing the assessment from a different facility than the patient. This includesuse of bluetooth stethoscope forauscultationperformed by the telepresenter that the telemedicine provider can hear if described in the physical exam. Hotel Sales Manager contact information: Please call [facility] Call Center . (Phone Number For Physician Use Only) After establishing a telemedicine visit, patient was: Patient was verified with two unique identifiers and Patient/authorized rep acknowledged consent and understanding Time Spent with Patient: Initial => 75 min History of Present Illness Reason for Consultation: MDR Klebsiella UTI Requesting Physician: Alfie Pena Attending Physician: Alfie Pena History of Present Illness This is a 37 year old male with transverse myelitis/quadriplegia with ventilator dependence with tracheostomy, chromic chaidez who presents for evaluation of fever. His chaidez is changed q 2weeks. About 1 week ago, it was changed, the day after he developed some discomfort and then noted blood from chaidez and in chaidez bag. He then developed fever, headache and all over body spasms which are the symptoms he usually gets with uti. His fevers continued to a TM 102.9 so he presented to ED. He denies nausea, cough, increased secretions from trach. Mother at bedside provides additional history. Admission Wbc 12.99, Bun 12, cr 0.71. UA 3+ bood, 5-10 Wbc, 1+ bacteria , Nasal pharyng Bio fire neg. + KPC detected by PCR , procal 0.94, crp 17.97. CXR shows Right lower lung airspace opacity may represent atelectasis, pneumonia, and/or aspiration. UC grew Morganella Morganii 70,000 ( R to cip, lev), 30, 000 Klebsiella pnA ( S Cef/Arash only ). Trach cx grew Serratia Jorge ( R ceftria, cipro, I Lev) and Morganella Morganii ( R to cip, lev), BC NGTD. He is currently on Zoayn. ID consulted for MDR klebsiella pneum. Allergies Allergy/AdvReac Type Severity Reaction Status Date / Time butalbital [From Fioricet] Allergy Severe Redness of Verified 06/30/23 08:09 Skin caffeine [From Fioricet] Allergy Severe Redness of Verified 06/30/23 08:09 Skin Home Medications Medication Instructions Recorded Confirmed Type Oxygen Home #1 ea 07/20/19 05/10/23 History acetaminophen 500 mg capsule 500 mg PO Q6H PRN 07/20/19 05/10/23 History magnesium 400 mg PO DAILY 07/20/19 05/10/23 History montelukast 10 mg tablet 10 mg PO DAILY 12/14/21 05/10/23 History minocycline 50 mg capsule 50 mg PO DAILY 03/23/22 05/10/23 History triamcinolone acetonide 0.1 % 1 applic topical Q OTHER DAY 03/23/22 05/10/23 History topical ointment doxepin 75 mg capsule 75 mg PO DAILY #30 caps 01/04/23 05/10/23 Rx famotidine 20 mg tablet 20 mg PO DAILY 01/31/23 05/10/23 History metoclopramide HCl 5 mg tablet 5 mg PO DAILY 01/31/23 03/15/23 History tizanidine 2 mg tablet 2 mg PO .COMPLEX muscle spasticity 02/28/23 05/10/23 Rx 90 days #180 tabs ipratropium 0.5 mg-albuterol 3 mg 3 ml inhalation BID shortness of 03/15/23 05/10/23 Rx (2.5 mg base)/3 mL nebulization breath or wheezing #360 mL soln baclofen 20 mg tablet See Rx Instructions .Route 03/28/23 05/10/23 Rx .COMPLEX #360 tabs gabapentin 600 mg tablet 600 mg PO .COMPLEX 90 days #270 05/10/23 05/10/23 Rx tabs lorazepam 2 mg tablet 2 mg PO 05/10/23 05/10/23 History lorazepam 4 mg/mL injection 4 mg IV BID PRN 05/10/23 05/10/23 History solution (Ativan) olopatadine 0.1 % eye drops drp ophthalmic (eye) 05/10/23 05/10/23 History albuterol sulfate 0.63 mg/3 mL 0.63 mg (3 mL) inhalation BID #180 05/27/23 Rx solution for nebulization mL ipratropium bromide 0.02 % 2.5 ml inhalation BID PRN 05/27/23 Rx solution for inhalation shortness of breath or wheezing #150 mL acetaminophen 325 mg tablet 650 mg PO Q4 PRN Mild Pain (Scale 06/30/23 06/30/23 History (Tylenol) Score 1-4) acetaminophen 325 mg tablet 650 mg PO Q4 PRN temp>101 f 06/30/23 06/30/23 History (Tylenol) acetaminophen 500 mg tablet 1,000 mg PO Q8 PRN temp > 101 06/30/23 06/30/23 History (Tylenol Extra Strength) acetylcysteine 200 mg/mL (20 %) 2 ml inhalation Q6 PRN Secretions 06/30/23 06/30/23 History solution baclofen 20 mg tablet 20 mg PO QID 06/30/23 06/30/23 History bisacodyl 10 mg rectal suppository 10 mg AK DAILY 06/30/23 06/30/23 History clobetasol 0.05 % shampoo 1 applic topical Q OTHER DAY 06/30/23 06/30/23 History doxepin 75 mg capsule 75 mg PO DAILY 06/30/23 06/30/23 History famotidine 20 mg tablet 20 mg PO DAILY 06/30/23 06/30/23 History gabapentin 600 mg tablet 1,200 mg PO QPM 06/30/23 06/30/23 History gabapentin 600 mg tablet 600 mg PO QAM 06/30/23 06/30/23 History ipratropium 0.5 mg-albuterol 3 mg 3 ml inhalation BID 06/30/23 06/30/23 History (2.5 mg base)/3 mL nebulization soln ipratropium 0.5 mg-albuterol 3 mg 3 ml inhalation Q4 PRN 06/30/23 06/30/23 History (2.5 mg base)/3 mL nebulization SOB,wheezing or increased soln secretions lorazepam 2 mg tablet 4 mg PO UD 06/30/23 06/30/23 History magnesium hydroxide 400 mg/5 mL 30 ml PO .EVERY 3 DAYS PRN 06/30/23 06/30/23 History oral suspension (Milk of Magnesia) Constipation magnesium oxide 400 mg PO HS 06/30/23 06/30/23 History melatonin 10 mg tablet 10 mg PO HS PRN Insomnia 06/30/23 06/30/23 History minocycline 50 mg capsule 50 mg PO DAILY 06/30/23 06/30/23 History montelukast 10 mg tablet 10 mg PO HS 06/30/23 06/30/23 History multivitamin 1 tab PO DAILY 06/30/23 06/30/23 History olopatadine 0.2 % eye drops 1 drp OPB DAILY 06/30/23 06/30/23 History sennosides 8.6 mg tablet (Senna 8.6 mg PO BID PRN Constipation 06/30/23 06/30/23 History Laxative) sodium chloride 7 % for 1 inh inhalation BID PRN increased 06/30/23 06/30/23 History nebulization or thickened secretions sodium phosphates 19 gram-7 118 ml AK Q OTHER DAY PRN 06/30/23 06/30/23 History gram/118 mL enema (Fleet Enema) Constipation tizanidine 2 mg capsule 1 mg PO BID 06/30/23 06/30/23 History tizanidine 2 mg capsule 2 mg PO HS 06/30/23 06/30/23 History triamcinolone acetonide 0.1 % 1 applic topical Q OTHER DAY 06/30/23 06/30/23 History lotion triamcinolone acetonide 0.1 % 1 applic topical BID PRN open 06/30/23 06/30/23 History topical ointment areas bilateral buttocks Patient History Medical History Fatigue 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 Gastrostomy tube in place Myelitis Neuralgia Pressure ulcer of right buttock, stage [address] Surgical History (System 06/30/23 @ 08:09 by Mayuri De) S/P eye surgery S/P nasal septoplasty S/P partial gastrectomy Family History Grandmother Cardiac disorder Type 2 diabetes mellitus Mother Type 2 diabetes mellitus Father Hypertension Social History (System 06/30/23 @ 08:09 by Mayuri De) Smoking Status: Never smoker Do You Dip or Chew Tobacco: No; Hx Alcohol Use: No Hx Substance Use: No Preferred Language: Japanese Communication Ability: Effective Medical Reviewer Required: No Beliefs That Will Affect Care: Catholic Current Living Situation: Parent Current Living Situation Comment: lives with parents and 24 hour caregivers Feels Safe at Home: Yes Safety Concerns: Feels Safe At This Time Assistive Devices: Mechanical Lift, Oxygen - Continuous and Wheelchair Review of System A 10 point ROS obtained. Pertinent positives as per hpi. Physical Exam Physical Exam: Gen- awake, NAD, quadriplegic, laying in bed HEENT- anicteic sclera Neck- trach in place; no drainage from site lungs- No increased work of breathing Abd-soft, distended - chaidez in place. dried crusted urine around urethra Ext No edema Neuro AAO*3, quadriplegic Results & Data Vital Signs (Past 12 Hours) Vital Signs Temp Pulse Pulse Resp BP Pulse Ox O2 Del Method 07/04/23 10:00 91 H 17 96 07/04/23 11:40 07/04/23 09:30 95 H 18 97 Mechanical Vent 07/04/23 08:00 97 H 16 97 07/04/23 08:00 130/103 H 07/04/23 08:00 07/04/23 08:00 Mechanical Vent 07/04/23 08:00 36.9 C 07/04/23 06:00 89 16 96 07/04/23 05:00 89 16 96 07/04/23 04:00 83 16 97 07/04/23 04:00 115/78 07/04/23 03:00 97 H 16 96 07/04/23 02:00 92 H 16 97 07/04/23 04:00 07/04/23 01:00 100 H 16 96 O2 Flow Rate FiO2 07/04/23 10:00 07/04/23 11:40 21 07/04/23 09:30 07/04/23 08:00 07/04/23 08:00 07/04/23 08:00 21 07/04/23 08:00 21 07/04/23 08:00 07/04/23 06:00 07/04/23 05:00 07/04/23 04:00 07/04/23 04:00 07/04/23 03:00 07/04/23 02:00 07/04/23 04:00 21 07/04/23 01:00 Laboratory Results Laboratory Results - last 48 hr 07/03/23 03:46 Creatinine 0.78 Est Cr Clr Drug Dosing 104.8 Est GFR ( Amer) 131.8 Est GFR (Non-Af Amer) 113.7 Diagnostic Findings Microbiology 06/29/23 23:30 Urine,Straight Cath Urine Culture - Final Morganella morganii Klebsiella pneumoniae 06/29/23 23:40 Sputum,Trach Gram Stain - Final 06/29/23 23:40 Sputum,Trach Sputum Culture - Final Serratia marcescens Morganella morganii 06/29/23 23:35 Blood Aerobic Blood Culture - Preliminary No growth in Aerobic bottle after 48 hours. 06/29/23 23:35 Blood Anaerobic Blood Culture - Preliminary No growth in Anaerobic bottle after 48 hours. 06/29/23 23:50 Blood Aerobic Blood Culture - Preliminary No growth in Aerobic bottle after 48 hours. 06/29/23 23:50 Blood Anaerobic Blood Culture - Preliminary No growth in Anaerobic bottle after 48 hours. Medications Administered Home Medications Medication Instructions Recorded Confirmed Last Taken Oxygen Home #1 ea 07/20/19 05/10/23 Unknown acetaminophen 500 mg capsule 500 mg PO Q6H PRN 07/20/19 05/10/23 Unknown magnesium 400 mg PO DAILY 07/20/19 05/10/23 Unknown montelukast 10 mg tablet 10 mg PO DAILY 12/14/21 05/10/23 Unknown minocycline 50 mg capsule 50 mg PO DAILY 03/23/22 05/10/23 Unknown triamcinolone acetonide 0.1 % 1 applic topical Q OTHER DAY 03/23/22 05/10/23 Unknown topical ointment doxepin 75 mg capsule 75 mg PO DAILY #30 caps 01/04/23 05/10/23 Unknown famotidine 20 mg tablet 20 mg PO DAILY 01/31/23 05/10/23 Unknown metoclopramide HCl 5 mg tablet 5 mg PO DAILY 01/31/23 03/15/23 Unknown tizanidine 2 mg tablet 2 mg PO .COMPLEX muscle spasticity 02/28/23 05/10/23 Unknown 90 days #180 tabs ipratropium 0.5 mg-albuterol 3 mg 3 ml inhalation BID shortness of 03/15/23 05/10/23 Unknown (2.5 mg base)/3 mL nebulization breath or wheezing #360 mL soln baclofen 20 mg tablet See Rx Instructions .Route 03/28/23 05/10/23 Unknown .COMPLEX #360 tabs gabapentin 600 mg tablet 600 mg PO .COMPLEX 90 days #270 05/10/23 05/10/23 Unknown tabs lorazepam 2 mg tablet 2 mg PO 05/10/23 05/10/23 Unknown lorazepam 4 mg/mL injection 4 mg IV BID PRN 05/10/23 05/10/23 Unknown solution (Ativan) olopatadine 0.1 % eye drops drp ophthalmic (eye) 05/10/23 05/10/23 Unknown albuterol sulfate 0.63 mg/3 mL 0.63 mg (3 mL) inhalation BID #180 05/27/23 Unknown solution for nebulization mL ipratropium bromide 0.02 % 2.5 ml inhalation BID PRN 05/27/23 Unknown solution for inhalation shortness of breath or wheezing #150 mL acetaminophen 325 mg tablet 650 mg PO Q4 PRN Mild Pain (Scale 06/30/23 06/30/23 Unknown (Tylenol) Score 1-4) acetaminophen 325 mg tablet 650 mg PO Q4 PRN temp>101 f 06/30/23 06/30/23 Unknown (Tylenol) acetaminophen 500 mg tablet 1,000 mg PO Q8 PRN temp > 101 06/30/23 06/30/23 Unknown (Tylenol Extra Strength) acetylcysteine 200 mg/mL (20 %) 2 ml inhalation Q6 PRN Secretions 06/30/23 06/30/23 Unknown solution baclofen 20 mg tablet 20 mg PO QID 06/30/23 06/30/23 Unknown bisacodyl 10 mg rectal suppository 10 mg AK DAILY 06/30/23 06/30/23 Unknown clobetasol 0.05 % shampoo 1 applic topical Q OTHER DAY 06/30/23 06/30/23 Unknown doxepin 75 mg capsule 75 mg PO DAILY 06/30/23 06/30/23 Unknown famotidine 20 mg tablet 20 mg PO DAILY 06/30/23 06/30/23 Unknown gabapentin 600 mg tablet 1,200 mg PO QPM 06/30/23 06/30/23 Unknown gabapentin 600 mg tablet 600 mg PO QAM 06/30/23 06/30/23 Unknown ipratropium 0.5 mg-albuterol 3 mg 3 ml inhalation BID 06/30/23 06/30/23 Unknown (2.5 mg base)/3 mL nebulization soln ipratropium 0.5 mg-albuterol 3 mg 3 ml inhalation Q4 PRN 06/30/23 06/30/23 Unknown (2.5 mg base)/3 mL nebulization SOB,wheezing or increased soln secretions lorazepam 2 mg tablet 4 mg PO UD 06/30/23 06/30/23 Unknown magnesium hydroxide 400 mg/5 mL 30 ml PO .EVERY 3 DAYS PRN 06/30/23 06/30/23 Unknown oral suspension (Milk of Magnesia) Constipation magnesium oxide 400 mg PO HS 06/30/23 06/30/23 Unknown melatonin 10 mg tablet 10 mg PO HS PRN Insomnia 06/30/23 06/30/23 Unknown minocycline 50 mg capsule 50 mg PO DAILY 06/30/23 06/30/23 Unknown montelukast 10 mg tablet 10 mg PO HS 06/30/23 06/30/23 Unknown multivitamin 1 tab PO DAILY 06/30/23 06/30/23 Unknown olopatadine 0.2 % eye drops 1 drp OPB DAILY 06/30/23 06/30/23 Unknown sennosides 8.6 mg tablet (Senna 8.6 mg PO BID PRN Constipation 06/30/23 06/30/23 Unknown Laxative) sodium chloride 7 % for 1 inh inhalation BID PRN increased 06/30/23 06/30/23 Unknown nebulization or thickened secretions sodium phosphates 19 gram-7 118 ml AK Q OTHER DAY PRN 06/30/23 06/30/23 Unknown gram/118 mL enema (Fleet Enema) Constipation tizanidine 2 mg capsule 1 mg PO BID 06/30/23 06/30/23 Unknown tizanidine 2 mg capsule 2 mg PO HS 06/30/23 06/30/23 Unknown triamcinolone acetonide 0.1 % 1 applic topical Q OTHER DAY 06/30/23 06/30/23 Unknown lotion triamcinolone acetonide 0.1 % 1 applic topical BID PRN open 06/30/23 06/30/23 Unknown topical ointment areas bilateral buttocks Active Medications Generic Name Dose Route Start Last Admin Trade Name Freq PRN Reason Stop Dose Admin Acetaminophen 650 mg 06/30/23 04:50 07/01/23 03:17 Acetaminophen 325 Mg Tab PO 07/30/23 04:49 650 mg Q4H PRN Administration Pain or Fever Albuterol 3 ml 06/30/23 07:00 07/04/23 07:50 Albut/Ipratrop 3mg/0.5mg Neb 3 Ml Vial INH 07/30/23 06:59 3 ml BIDR OLIVERIO Administration Protocol Baclofen 20 mg 06/30/23 09:00 07/04/23 11:33 Baclofen 20 Mg Tab PO 07/30/23 08:59 20 mg QID OLIVERIO Administration Bisacodyl 10 mg 06/30/23 14:00 07/03/23 17:03 Bisacodyl 10 Mg Supp AK 07/30/23 08:59 10 mg [id number] OLIVERIO Administration Doxepin HCl 75 mg 06/30/23 21:00 07/03/23 20:56 Doxepin Hcl 75 Mg Capsule PO 07/30/23 20:59 75 mg HS OLIVERIO Administration Enoxaparin Sodium 40 mg 06/30/23 09:00 07/04/23 08:29 Enoxaparin Inj 40 Mg/0.4 Ml Syr SQ 07/30/23 08:59 Not Given Q24H OLIVERIO Famotidine 20 mg 06/30/23 09:00 07/04/23 08:28 Famotidine 20 Mg Tab PO 07/30/23 08:59 20 mg DAILY OLIVERIO Administration Gabapentin 600 mg 06/30/23 09:00 07/04/23 08:28 Gabapentin 600 Mg Tab PO 07/30/23 08:59 600 mg QAM OLIVERIO Administration Gabapentin 1,200 mg 06/30/23 21:00 07/03/23 20:55 Gabapentin 600 Mg Tab PO 07/30/23 20:59 1,200 mg QPM OLIVERIO Administration Ceftazidime/Avibactam 2.5 gm/ 62 mls @ 31 mls/hr 07/03/23 11:00 07/04/23 13:43 Sodium Chloride IV 07/13/23 10:59 Infused Q8H OLIVERIO Infusion Protocol Magnesium Oxide 400 mg 06/30/23 21:00 07/03/23 20:55 Magnesium Oxide 400 Mg Tab PO 07/30/23 20:59 400 mg HS OLIVERIO Administration Minocycline HCl 50 mg 06/30/23 11:30 07/04/23 11:33 Minocycline Hcl 50 Mg Cap PO 07/07/23 11:29 50 mg DAILY@1130 OLIVERIO Administration Protocol Montelukast Sodium 10 mg 06/30/23 21:00 07/03/23 20:56 Montelukast Sodium 10 Mg Tablet PO 07/30/23 20:59 10 mg HS OLIVERIO Administration Multivitamins 1 tab 06/30/23 09:00 07/04/23 08:28 Multivitamin Tab PO 07/30/23 08:59 1 tab DAILY OLIVERIO Administration Sennosides 8.6 mg 06/30/23 04:50 06/30/23 20:36 Senna 8.6 Mg Tab PO 07/30/23 04:49 8.6 mg BID PRN Administration Constipation Tizanidine HCl 2 mg 06/30/23 21:00 07/03/23 22:16 Tizanidine Hcl 4 Mg Tablet PO 07/30/23 20:59 2 mg HS OLIVERIO Administration Tizanidine HCl 1 mg 06/30/23 08:00 07/04/23 08:28 Tizanidine Hcl 4 Mg Tablet PO 07/30/23 07:59 1 mg BID@0800,1600 OLIVERIO Administration
[2023-07-04] MEDS: DOXEPIN HCL 75 MG CAPSULE PO SCH (20:54)
[2023-07-04] MEDS: MONTELUKAST SODIUM 10 MG TABLET PO SCH (20:55)
[2023-07-04] MEDS: MAGNESIUM OXIDE 400 MG TAB PO SCH (20:55)
--- NOTE | 2023-07-05 06:52 | Hospitalist Progress Note ---
Date of Service July 04, 2023 Assessment & Plan (1) Spasticity: Plan: Sepsis: Plan: Patient is a 37-year-old male with a past medical history of transverse myelitis with ventilator dependence with tracheostomy who comes to the hospital for evaluation of fever. Suspect patient has urinary tract infection secondary to Jade catheter. For this reason, patient be admitted for treatment. -Admit to telemetry but placed in ICU given home ventilator dependence with tracheostomy -Admitted with SIRS criteria with tachycardia, elevated white blood cell count, fever, and respirations equal to 20 on admission -Suspected source is urinary given positive urinalysis. -Suspect this is actually a cystitis and patient chronically has soft blood pressure, tachycardia -Given higher risk for unusual bacteria given chronic Jade catheter, initially treated with Zosyn, however, patient had multi drug resistant klebsiella. -Only sensitive to Avycaz. -Sputum cultures likely colonized. Patient has not had increased sputum or dyspnea/increased ventilator requirements -Status post 2 L of crystalloid fluid which is adequate per sepsis protocol (2) UTI (urinary tract infection): Plan: -Treatment as above -Zosyn for now and tailor antibiotics as results return Awaiting cultures: Klebsiella is multi resistent, will need to use 5th gen cephalosporin. setting up home health. (3) Ventilator dependence: Plan: -May use own home ventilator -PCU/telemetry status in ICU for nursing care -Acetylcysteine inhalation every 6 hours as needed for secretions -Suction PRN Home Settings: Mode: Assist Control Rate: 16 bpm PEEP: 5 cm/H2O Tidal Volume: 500 Inspiratory time: 1.0 sec (4) Transverse myelitis: Plan: - Chronic condition resulting in paraplegia, ventilator dependence -Treatment of secondary conditions below (5) Quadriplegia: Plan: -Aspiration precautions, ulcer precautions, no dietary restrictions -HOB at 30-45 degrees -Frequent repositioning -Continue Jade catheter care -Spasm management with Tylenol, baclofen, doxepin, gabapentin, tizanidine (6) Neurogenic bowel: Plan: - Continue home bowel regimen (7) Neuromuscular dysfunction of bladder: Plan: - Continue Jade catheter management (8) GERD without esophagitis: Plan: -Continue Pepcid (9) Anxiety disorder: (10) Legal blindness: (11) Indwelling Jade catheter present: (2) Fatigue: (3) S/P partial gastrectomy: (4) Acute transverse myelitis: (5) Bleeding from gastrostomy tube site: (6) Gastrocutaneous fistula: (7) Ventilator dependent: (8) Quadriplegia: (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 Will need 21 doses from change of catheter. Case management getting pre-auth of med. Trying to get home health for IV admin. DVT prophylaxis: Lovenox Diet: Regular with aspiration precautions CODE STATUS: Full code Admission and Anticipated Discharge Date Admission Date: June 30, 2023 Subjective Patient reports no new symptoms. Review of Systems Review of Systems: All systems reviewed & are unremarkable except as noted in HPI & below Physical Exam Physical Exam: Constitutional: well nourished, cooperative and comfortable Eyes: + anicteric sclerae Neck: trachea midline Tracheostomy in place with ventilator Respiratory: Auscultation: lungs clear to auscultation bilaterally Skin: no rashes, warm and dry. stage 2 decub ulcer: covered in a bandage. Neurologic: awake Psychiatric: A+Ox3, euthymic affect Results & Data Results & Data Vital Signs (Past 12 Hours) Vital Signs Pulse Pulse Resp BP Pulse Ox O2 Del Method FiO2 07/05/23 05:00 78 16 95 07/05/23 04:00 78 16 95 07/05/23 04:00 99/66 L 07/05/23 03:00 86 18 96 07/05/23 02:00 84 16 95 07/05/23 01:00 85 16 96 07/05/23 00:00 88 16 95 07/05/23 00:00 110/66 07/05/23 04:00 21 07/05/23 00:00 21 07/04/23 23:00 94 H 18 95 07/04/23 22:00 92 H 16 95 07/04/23 21:00 103 H 19 95 07/04/23 20:00 105 H 20 94 07/04/23 20:00 138/89 07/04/23 19:00 90 16 95 07/04/23 20:00 Mechanical Vent 07/04/23 20:00 21 07/04/23 19:50 92 H 18 99 Mechanical Vent PG Care Time/CCT Total # of Minutes Spent Total Time Spent with Patient: Total time spent is greater than 50% in coordination of care (as documented) at patient's floor/unit and/or counseling patient: Coding Level of Care Code 93098 SUB INP/OBS CARE 2/35MIN Diagnoses Spasticity R25.2 Fatigue R53.83 S/P partial gastrectomy Z90.3 Acute transverse myelitis G37.3 Bleeding from gastrostomy tube site K94.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
[2023-07-05] MEDS: ALBUT/IPRATROP 3MG/0.5MG NEB 3 ML VIAL INH SCH ×2 (07:23→19:15)
[2023-07-05 08:24] LABS: Hemoglobin 12.3 g/dl (14.0-18.0); Mean Corpuscular Hemoglobin 29.9 pg (25.0-34.0); Mean Corpuscular Hgb Conc 33.2 g/dL (32.0-36.0); Mean Platelet Volume 10.6 fL (9.4-12.4); Platelet Count 226 K/uL (130-400); RDW Coefficient of Variation 16.7 % (11.5-14.5); RDW Standard Deviation 54.7 fL (36.4-46.3); Red Blood Count 4.11 M/uL (4.70-6.10); White Blood Count 12.18 K/ul (4.8-10.8)
[2023-07-05] MEDS: GABAPENTIN 600 MG TAB PO SCH ×2 (08:30→21:34)
[2023-07-05] MEDS: FAMOTIDINE 20 MG TAB PO SCH (08:30)
[2023-07-05] MEDS: BACLOFEN 20 MG TAB PO SCH ×4 (08:30→21:34)
[2023-07-05] MEDS: MULTIVITAMIN TAB PO SCH (08:30)
[2023-07-05] MEDS: tiZANidine HCL 4 MG TABLET PO SCH ×3 (08:30→21:34)
[2023-07-05] MEDS: ENOXAPARIN INJ 40 MG/0.4 ML SYR SQ SCH (08:31)
[2023-07-05 08:45] LABS: BUN Creatinine Ratio 23.5 (10-20); Calcium 8.8 mg/dl (8.6-10.3); Creatinine Clr Calc Pharmacy 96.2 ml/min; Est GFR (African American) 127.2 ml/min; Est GFR (Non-African American) 109.8 ml/min; Potassium 3.1 mmol/L (3.5-5.1)
[2023-07-05 10:55] LABS: Estimated Average Glucose 120 mg/dl; Hemoglobin A1C 5.8 % (4.5-5.6)
[2023-07-05] MEDS: MINOCYCLINE HCL 50 MG CAP PO SCH (12:03)
[2023-07-05] MEDS ORDERED: POTASSIUM CHLORIDE CRTAB 20 MEQ TABCR PO STA (13:48)
[2023-07-05] MEDS: bisacodyL 10 MG SUPP PR SCH ×2 (14:14→14:37)
--- NOTE | 2023-07-05 19:56 | Hospitalist Progress Note ---
Date of Service July 05, 2023 Assessment & Plan (1) Catheter-associated urinary tract infection: Plan: 2nd Morganella morganii and klebsiella pneumoniae - latter nearly resistant to all antibiotics remains on contact precautions due to MDR klebsiella seen by infectious diseases - needs 1 additional week of ceftaz/avibactam ovalles exchanged 07/04/23 clinically stable blood cx's negative wbc count mildly high today - significance uncertain as he is clinically stable repeat CBC with CRP in am (2) Quadriplegia: Plan: 2nd transverse myelitis in 06/2013 cont chronic meds - baclofen qid, gabapentin BID, tizanidine TID (3) Neurogenic bowel: Plan: typically needs every other day suppositories but having multiple BMs due to abx-associated diarrhea if diarrhea worsens would need to r/o c diff (4) GERD without esophagitis: Plan: cont pepcid daily (5) Legal blindness: (6) Indwelling Ovalles catheter present: Plan: chronic ovalles 2nd to neurogenic bladder exchanged 07/04/23 (7) Sepsis: Plan: 2nd #1 cont ceftaz/avibactam x 1 additional week blood cx's negative (8) Ventilator dependence: Plan: cont home ventilator at chronic settings Home Settings: Mode: Assist Control Rate: 16 bpm PEEP: 5 cm/H2O Tidal Volume: 500 Inspiratory time: 1.0 sec (9) Neurogenic bladder: Plan: cont chronic ovalles exchanged 07/04/23 (10) Transverse myelitis: Plan: history of such 10+ years ago with resulting quadriplegia, vent dependence, neurogenic bowel/bladder, etc (11) Hypokalemia: Plan: replace PO KCL repeat K and mag levels am (12) Prediabetes: Plan: a1c 5.8% just at cusp of pre-diabetes f/u PCP for this (13) Chronic hypoxic respiratory failure: Plan: vent-dependent for such h/o transverse myelitis at C2-C3 no issues at this time - stable sputum cx with serratia and morganella morganii infectious diseases has seen - felt that the above are colonizers rather than pathogenic Plan DVT proph - lovenox 40mg daily awaiting insurance approval for outpatient IV antibiotics once approved can d/c home home 07/06/23 ? Admission and Anticipated Discharge Date Admission Date: June 30, 2023 Subjective pt resting in bed comfortably listening to an audio book reports feeling better in comparison to admission denies any fevers/chills eating well has had several loose stools; typically has to use a suppository several times each week to have a bowel movement no pulmonary issues remains on home vent with chronic vent settings denies any past h/o kidney stone Review of Systems Review of Systems: cv - no chest pain GI - no nausea/emesis; no abd pain - ovalles exchanged yesterday pulm - no dyspnea gen - feels well Physical Exam Physical Exam: gen - NAD, pleasant, awake/alert eyes - nystagmus noted b/l mouth - MM modestly dry neck - no JVD; trach in place; vent tubing present heart - RRR, s1 s2, no murmur lungs - CTA b/l, no rales abd - distended, BS+, NT, no HSM ext - <1+ edema b/l, pulses 2+ b/l neuro - quadriplegia, atrophy of all 4 limbs present psych - a/o x 3 Results & Data Results & Data Vital Signs (Past 12 Hours) Vital Signs Pulse Pulse Resp BP Pulse Ox Pulse Ox O2 Del Method 07/05/23 19:16 91 H 97 Mechanical Vent 07/05/23 18:00 83 22 96 07/05/23 16:00 81 20 92 Mechanical Vent 07/05/23 16:00 111/79 07/05/23 14:00 83 18 96 07/05/23 16:00 07/05/23 16:00 85 07/05/23 12:00 85 18 95 07/05/23 12:00 121/86 07/05/23 10:00 84 16 93 07/05/23 12:00 07/05/23 08:00 07/05/23 08:00 95 07/05/23 08:00 78 07/05/23 08:46 Mechanical Vent 07/05/23 08:00 92 H 18 94 07/05/23 08:00 116/76 O2 Del Method FiO2 07/05/23 19:16 07/05/23 18:00 07/05/23 16:00 07/05/23 16:00 07/05/23 14:00 07/05/23 16:00 21 07/05/23 16:00 07/05/23 12:00 07/05/23 12:00 07/05/23 10:00 07/05/23 12:00 21 07/05/23 08:00 21 07/05/23 08:00 Mechanical Vent 07/05/23 08:00 07/05/23 08:46 07/05/23 08:00 07/05/23 08:00 Laboratory Results Laboratory Results - last 24 hr 07/05/23 07/05/23 07/05/23 08:02 08:02 08:02 WBC 12.18 H RBC 4.11 L Hgb 12.3 L Hct 37.0 L MCV 90.0 MCH 29.9 MCHC 33.2 RDW Std Deviation 54.7 H RDW Coeff of Denisa 16.7 H Plt Count 226 MPV 10.6 Sodium 139 Potassium 3.1 L Chloride 109 H Carbon Dioxide 18 L Anion Gap 12 H BUN 20 Creatinine 0.85 Est Cr Clr Drug Dosing 96.2 Est GFR ( Amer) 127.2 Est GFR (Non-Af Amer) 109.8 BUN/Creatinine Ratio 23.5 H Glucose 166 H Estimat Average Glucose 120 Hemoglobin A1c 5.8 H Calcium 8.8 PG Care Time/CCT Total # of Minutes Spent Total Time Spent with Patient: Total time spent is greater than 50% in coordination of care (as documented) at patient's floor/unit and/or counseling patient: Coding Level of Care Code 39166 SUB INP/OBS CARE 2/35MIN Diagnoses Catheter-associated urinary tract infection T83.511A; N39.0 Quadriplegia G82.50 Neurogenic bowel K59.2 GERD without esophagitis K21.9 Legal blindness H54.8 Indwelling Ovalles catheter present Z97.8 Sepsis A41.9 Ventilator dependence Z99.11 Neurogenic bladder N31.9 Transverse myelitis G37.3 Hypokalemia E87.6 Prediabetes R73.03 Chronic hypoxic respiratory failure J96.11
[2023-07-05] MEDS: MONTELUKAST SODIUM 10 MG TABLET PO SCH (21:34)
[2023-07-05] MEDS: ACETAMINOPHEN 325 MG TAB PO PRN (21:34)
[2023-07-05] MEDS: MAGNESIUM OXIDE 400 MG TAB PO SCH (21:34)
[2023-07-05] MEDS: DOXEPIN HCL 75 MG CAPSULE PO SCH (21:35)
[2023-07-06 04:25] LABS: Hematocrit (blood only) 34.1 % (42.0-52.0); Hemoglobin 11.5 g/dl (14.0-18.0); Lymphocytes % (auto) 21.8 %; Mean Corpuscular Hemoglobin 29.9 pg (25.0-34.0); Mean Corpuscular Hgb Conc 33.7 g/dL (32.0-36.0); Mean Corpuscular Volume 88.6 fL (80.0-100.0); Monocytes % (auto) 6.2 %; Neutrophils % (auto) 65.2 %; Platelet Count 247 K/uL (130-400); RDW Coefficient of Variation 16.6 % (11.5-14.5); RDW Standard Deviation 53.7 fL (36.4-46.3); Red Blood Count 3.85 M/uL (4.70-6.10); White Blood Count 10.83 K/ul (4.8-10.8)
[2023-07-06 04:26] LABS: Basophils # (auto) 0.05 K/uL (0.00-0.20); Basophils % (auto) 0.5 %; Eosinophils # (auto) 0.32 K/uL (0.00-0.50); Immature Granulocytes # (auto) 0.36 K/uL (0.01-0.20); Immature Granulocytes % (auto) 3.3 %; Lymphocytes # (auto) 2.36 K/uL (1.20-3.40); Monocytes # (auto) 0.67 K/uL (0.11-0.59); Neutrophils # (auto) 7.07 K/uL (1.40-6.50)
[2023-07-06 04:40] LABS: BUN Creatinine Ratio 23.3 (10-20); C Reactive Protein 4.67 mg/dl (0-0.5); Calcium 8.8 mg/dl (8.6-10.3); Creatinine Clr Calc Pharmacy 95.1 ml/min; Est GFR (African American) 126.6 ml/min; Est GFR (Non-African American) 109.2 ml/min; Magnesium 2.2 mg/dl (1.7-2.4); Potassium 3.2 mmol/L (3.5-5.1)
[2023-07-06] MEDS: ALBUT/IPRATROP 3MG/0.5MG NEB 3 ML VIAL INH SCH (06:59)
[2023-07-06] MEDS ORDERED: POTASSIUM CHLORIDE CRTAB 20 MEQ TABCR PO STA (08:16)
[2023-07-06] MEDS: ENOXAPARIN INJ 40 MG/0.4 ML SYR SQ SCH ×2 (08:42→08:52)
[2023-07-06] MEDS: BACLOFEN 20 MG TAB PO SCH ×2 (08:46→12:30)
[2023-07-06] MEDS: GABAPENTIN 600 MG TAB PO SCH (08:46)
[2023-07-06] MEDS: MULTIVITAMIN TAB PO SCH (08:47)
[2023-07-06] MEDS: FAMOTIDINE 20 MG TAB PO SCH (08:47)
[2023-07-06] MEDS: tiZANidine HCL 4 MG TABLET PO SCH (08:56)
[2023-07-06 10:58] LABS: Urine Potassium 7.3 mmol/L
[2023-07-06] MEDS: MINOCYCLINE HCL 50 MG CAP PO SCH (11:06)
[2023-07-06 11:50] VITALS: BP 145/106; RESP 17; TEMP 97.9; O2SAT 97
--- NOTE | 2023-07-06 12:06 | Discharge Summary ---
Date of Service July 06, 2023 Admission HPI Per Admitting Provider Patient is a 37-year-old male with a past medical history of transverse myelitis with ventilator dependence with tracheostomy who comes to the hospital for evaluation of fever. Patient has a chronic indwelling Ovalles catheter. It seems that his home nurse went to change his Ovalles catheter today and there was a small amount of hematuria. This seemed to have occurred around 4 PM on 06/29/23. Earlier in the day he also had a fever as started in the low 100s Fahrenheit and went as high as 102.9 F. The nurse and the patient's parents applied cold compresses which did bring his fever down. Because of this fever and the hematuria, he came to the hospital for further evaluation via ambulance. Patient is a quadriplegic secondary to transverse myelitis. He denies any abdominal discomfort, penile pain, or nausea/vomiting. He occasionally gets pain in his arms and legs but has had none today. Denies feeling short of breath. Bowel movements have been normal. Output has been normal as well. No episodes of aspiration per patient and family/nurse. All medications have been taken appropriately per nurse. Since the replacement of the Ovalles catheter, the patient has not had any hematuria. Hematuria has not been witnessed in this hospital as of yet. Otherwise no other complaints at this time. ED course: Patient evaluated by provider in room. Labs are significant for a mildly elevated white blood cell count of 13, VBG with a pH of 7.46, sodium of 132, procalcitonin of 0.94, urinalysis 3+ positive for blood, 2+ positive for leukocyte esterase, and positive for white blood cells/urine bacteria. Respiratory BioFire negative. X-ray showing no focal consolidation suggestive of pneumonia. Urine culture has been taken. Patient was given 2 boluses total of normal saline. Patient was started on Zosyn in the ED. Given that the patient's vitals and labs are suggestive of sepsis given a urinary source, the hospitalist service was consulted for admission and further treatment. Discharge Exam gen - NAD, pleasant, awake/alert eyes - nystagmus noted b/l mouth - MM modestly dry neck - no JVD; trach in place; vent tubing present heart - RRR, s1 s2, no murmur lungs - CTA b/l, no rales abd - distended, BS+, NT, no HSM ext - <1+ edema b/l, pulses 2+ b/l neuro - quadriplegia, atrophy of all 4 limbs present psych - a/o x 3 Discharge Data Allergies Allergy/AdvReac Type Severity Reaction Status Date / Time butalbital [From Fioricet] Allergy Severe Redness of Verified 06/30/23 08:09 Skin caffeine [From Fioricet] Allergy Severe Redness of Verified 06/30/23 08:09 Skin Consultations 06/30/23 01:16 ED Decision to Admit Stat 07/04/23 10:39 Consult Infectious Diseases Routine Ordered Studies 07/03/23 10:53 US guide vascular access Routine Hospital Course (1) Catheter-associated urinary tract infection: 2nd Morganella morganii and klebsiella pneumoniae - latter nearly resistant to all antibiotics remains on contact precautions due to MDR klebsiella seen by infectious diseases - needs 1 additional week of ceftaz/avibactam ovalles exchanged 07/04/23 clinically stable blood cx's negative wbc count mildly high today - significance uncertain as he is clinically stable repeat CBC with CRP in am (2) Quadriplegia: 2nd transverse myelitis in 06/2013 cont chronic meds - baclofen qid, gabapentin BID, tizanidine TID (3) Neurogenic bowel: typically needs every other day suppositories but having multiple BMs due to abx-associated diarrhea if diarrhea worsens would need to r/o c diff (4) GERD without esophagitis: cont pepcid daily (5) Legal blindness: (6) Indwelling Ovalles catheter present: chronic ovalles 2nd to neurogenic bladder exchanged 07/04/23 (7) Sepsis: 2nd #1 cont ceftaz/avibactam x 1 additional week blood cx's negative (8) Ventilator dependence: cont home ventilator at chronic settings Home Settings: Mode: Assist Control Rate: 16 bpm PEEP: 5 cm/H2O Tidal Volume: 500 Inspiratory time: 1.0 sec (9) Neurogenic bladder: cont chronic ovalles exchanged 07/04/23 (10) Transverse myelitis: history of such 10+ years ago with resulting quadriplegia, vent dependence, neurogenic bowel/bladder, etc (11) Hypokalemia: replace PO KCL repeat K and mag levels am (12) Prediabetes: a1c 5.8% just at cusp of pre-diabetes f/u PCP for this (13) Chronic hypoxic respiratory failure: vent-dependent for such h/o transverse myelitis at C2-C3 no issues at this time - stable sputum cx with serratia and morganella morganii infectious diseases has seen - felt that the above are colonizers rather than pathogenic Plan DVT proph - lovenox 40mg daily awaiting insurance approval for outpatient IV antibiotics once approved can d/c home home 07/06/23 ? Discharge Plan Discharge Items Patient Disposition: Home - Home Health Services Reason For Visit: FEVER Discharge Diagnosis: 1. ovalles catheter associated urinary tract infection (UTI) - improved. UTI was due to 2 types of bacteria - klebsiella and morganella. 2. mild hypokalemia (low potassium) - follow-up with [facility] for this. 3. ventilator dependency. 4. history of transverse myelitis. 5. borderline pre-diabetes with Hemoglobin A1c of 5.8%. See handout. Please f/u with Suzanna Mendez for this non-urgently. 6. chronic hypoxic respiratory failure on home ventilator. Activity: Resume your previous activity Non-emergency contact: Primary Care Provider and [employer] Call non-emergency contact if: you have any medication questions, your symptoms worsen and you have a fever Follow-up/Referrals: Moses Martines, [Physician] - (Dr Martines's office will be contacting you for a telehealth visit for the low potassium and mildly low bicarbonate problem as seen on blood work. ) Suzanna Mendez [Primary Care Provider] - 07/15/23 11:05 am (1 week) Diet: Regular Addtl Attending Provider Instructions: Mr Acevedo, You were hospitalized due to fever. This was due to a urinary tract infection. Your urine culture grew 2 organisms - klebsiella, as well as morganella. The klebsiella was a highly resistant bacterium requiring a special antibiotic called ceftazidime/avibactam. You have done well on this antibiotic during your stay. Your chest x-ray from admission showed a questionable pneumonia at the bottom of the right lung but you were stable on your home ventilator, your oxygen levels were satisfactory, you did not have increased secretions from your tracheostomy, etc. Thus, it was felt unlikely that there was a true pneumonia present. If there is infection in the right lung the antibiotic for the urinary infection will cover the lungs as well. You will have 7 more days of IV antibiotics at home. The antibiotic is 3 times a day. In addition to the above we noted you had very mild low potassium levels. You also had very mild low bicarbonate levels in your blood. We are sending you home on a short course of potassium supplement. Starting tomorrow, 07/07/23, please take potassium chloride 10meq once daily x 7 days. You will need a repeat blood draw in about 5 days to ensure your labs are stable. We will have your home health company draw this blood at home. I would recommend a follow-up visit with [facility] for the low potassium/low bicarbonate issue. Dr Moses Martines's office should be contacting you in the next couple of days to set up a telehealth visit. That telehealth visit will likely take place in the next 7-10 days. Finally, it is ok to take an [id number] probiotic supplement daily over the next 7-10 days. Return to [facility] if - * you have fevers over 100 degrees * you have severe diarrhea * you have any concerns about your lungs, your ventilator, etc * you have any concerns about your IV in your arm * any other concerns It was our pleasure to care for you! -Dr Walker Pending Studies at Discharge: Yes Studies:: urine studies Stand-Alone Forms: My [facility], Smoking Cessation Medications and DC Order Prescriptions: New ceftazidime-avibactam 2.5 gram recon soln 2.5 g IV Q8H 7 Days Qty: 21 0RF Rx Instructions: (dosed as 2 grams ceftazidime/0.5 grams avibactam) potassium chloride 10 mEq tablet extended release 10 meq PO DAILY 7 Days Qty: 7 0RF Rx Instructions: start 07/07/23. Continued metoclopramide HCl 5 mg tablet 5 mg PO DAILY (DME) Oxygen Home Liters Per Minute See Dose Instructions .ROUTE .MEDSUPPLY Qty: 1 Rx Instructions: As directed multivitamin Tablet 1 tab PO DAILY gabapentin 600 mg tablet 600 mg PO QAM gabapentin 600 mg tablet 1,200 mg PO QPM famotidine 20 mg tablet 20 mg PO DAILY montelukast 10 mg tablet 10 mg PO HS tizanidine 2 mg capsule 2 mg PO HS tizanidine 2 mg capsule 1 mg PO BID Rx Instructions: take 1/2 tablet at 8am & 4pm magnesium oxide 400 mg magnesium Tablet 400 mg PO HS melatonin 10 mg Tablet 10 mg PO HS PRN (Reason: Insomnia) sennosides [Senna Laxative] 8.6 mg Tablet 8.6 mg PO BID PRN (Reason: Constipation) triamcinolone acetonide 0.1 % ointment 1 applic TOPICAL BID PRN (Reason: open areas bilateral buttocks) ipratropium-albuterol 0.5 mg-3 mg(2.5 mg base)/3 mL solution for nebulization 3 ml INHALATION BID Rx Instructions: twice daily via vent ipratropium-albuterol 0.5 mg-3 mg(2.5 mg base)/3 mL solution for nebulization 3 ml INHALATION Q4 PRN (Reason: SOB,wheezing or increased secretions) Rx Instructions: via vent doxepin 75 mg capsule 75 mg PO DAILY minocycline 50 mg capsule 50 mg PO DAILY triamcinolone acetonide 0.1 % lotion 1 applic TOPICAL Q OTHER DAY Rx Instructions: apply to face,ears and scalp baclofen 20 mg tablet 20 mg PO QID clobetasol 0.05 % shampoo 1 applic TOPICAL Q OTHER DAY Rx Instructions: apply to scalp and leave on for 60 minutes then rinse thoroughly olopatadine 0.2 % Drops 1 drp OPB DAILY acetaminophen [Tylenol Extra Strength] 500 mg Tablet 1,000 mg PO Q8 MDD 3g PRN (Reason: temp > 101) acetylcysteine 200 mg/mL (20 %) Solution 2 ml INHALATION Q6 PRN (Reason: Secretions) Rx Instructions: via vent Fleet Enema 19-7 gram/118 mL Enema 118 ml LA Q OTHER DAY PRN (Reason: Constipation) magnesium hydroxide [Milk of Magnesia] 400 mg/5 mL Suspension 30 ml PO .EVERY 3 DAYS PRN (Reason: Constipation) lorazepam 2 mg tablet 4 mg PO UD Rx Instructions: give 2 tablets 30-60 minutes prior to trach change to control neck muscle spasms sodium chloride 7 % Solution For Nebulization 1 inh INHALATION BID PRN (Reason: increased or thickened secretions) Rx Instructions: give via vent Changed bisacodyl 10 mg Suppository 10 mg LA DIRECTED Qty: 12 0RF Rx Instructions: Tuesday, , Tuesday. Discontinued acetaminophen [Tylenol] 325 mg Tablet 650 mg PO Q4 MDD 3gm PRN (Reason: temp>101 f) Discharge Orders: Discharge Order (Routine); Ordered 07/06/23 Ordered By: Robby Dunlap/Other Patient Handouts: A1C, Prediabetes Admission Data Admit Date/Time: 06/30/23 03:10 Attending Provider: Robby Walker Admit Provider: Ramiro Jo Primary Care Provider: Suzanna Mendez Other Providers: Dipti Dennis ; Estrella Kitchen ; Mook Gregory ; Susu Mendoza ; Jignesh Gupta ; Daria Cai ; Ammy Mirza ; Mary Wood ; Yudy Ingram ; Anne Ring ; [facility],Home Healthcare Coding Diagnoses Catheter-associated urinary tract infection T83.511A; N39.0 Quadriplegia G82.50 Neurogenic bowel K59.2 GERD without esophagitis K21.9 Legal blindness H54.8 Indwelling Ovalles catheter present Z97.8 Sepsis A41.9 Ventilator dependence Z99.11 Neurogenic bladder N31.9 Transverse myelitis G37.3 Hypokalemia E87.6 Prediabetes R73.03 Chronic hypoxic respiratory failure J96.11 Home Health Attestation I certify that this patient is under my care and that I, or a physicians nurses assistant working with me, had a face to-face encounter that meets the home health [id number]-[id number] encounter requirements with this patient. The encounter with the patient was in whole, or in part, for the following medical condition, which is the primary reason for home health care (list medical condition): I certify that, based on my findings, the following services are medically necessary home health services: My clinical findings support the need for the above services because: Further, I certify that my clinical findings support that this patient is homebound (i.e. absences from home require considerable and taxing effort and are for medical reasons or buddhist services or infrequently or of short duration when for other reasons) because: Certification for Home Health Services: Based on the above findings, I certify that this patient is confined to the home and needs intermittent fci care, physical therapy and/or speech therapy or continues to need occupational therapy. The patient is under my care, and I have initiated the establishment of the plan of care. This patient will be followed by a physician who will periodically review the plan of care.
[2023-07-06] MEDS ORDERED: POTASSIUM CHLORIDE CRTAB 20 MEQ TABCR PO ONE (12:30)
[2023-07-06 12:42] VITALS: PULSE 91
[2023-07-07 09:18] LABS: Urea Nitrogen, Random Urine 255 mg/dL
== END 2023-07-06 13:46 | disposition home health service (06) | DRG 698 ==
LOC: ED 22:56 → SUATTDRO 06-30 03:10 → MERGE 06-30 03:10 → 1E 06-30 03:10